=== PATIENT | male | born 1945 | race Caucasian/White ===

== ENCOUNTER → 2017-12-16 | Outpatient (CLI) | payer MEDICARE ==
--- NOTE | 2017-12-16 15:13 | US ---
EXAMINATION TYPE: US carotid duplex BILAT DATE OF EXAM: 12/16/2017 COMPARISON: NONE CLINICAL HISTORY: F03.90 Unspecified Dementia W/O Behavioral Distur. Dementia EXAM MEASUREMENTS: RIGHT: Peak Systolic Velocity (PSV) cm/sec ----- Right CCA: 76.7 ----- Right ICA: 64.3 ----- Right ECA: 84.4 ICA/CCA ratio: 0.8 RIGHT: End Diastole cm/sec ----- Right CCA: 16.1 ----- Right ICA: 18.0 ----- Right ECA: 7.3 LEFT: Peak Systolic Velocity (PSV) cm/sec ----- Left CCA: 83.8 ----- Left ICA: 66.0 ----- Left ECA: 76.5 ICA/CCA ratio: 0.8 LEFT: End Diastole cm/sec ----- Left CCA: 15.4 ----- Left ICA: 18.0 ----- Left ECA: 5.8 VERTEBRALS (direction of flow): Right Vertebral: Antegrade Left Vertebral: Antegrade Rhythm: Normal No significant stenosis seen IMPRESSION: No evidence for hemodynamically significant stenosis. Criteria for Assigning % of Stenosis / Diameter reduction (Estimation based on the indirect measurements of the internal carotid artery velocities (ICA PSV). 1. Normal (no stenosis)=ICA PSV < 125 cm/s: ratio < 2.0: ICA EDV<40 cm/s. 2. Less than 50% stenosis=ICA PSV < 125 cm/s: ratio < 2.0: ICA EDV<40 cm/s. 3. 50 to 69% stenosis=ICA PSV of 125 to 230 cm/s: ration 2.0 ? 4.0: ICA EDV 40-100 cm/s. 4. Greater than 70% stenosis to near occlusion= ICA PSV > 230 cm/s: ratio > 4.0: ICA EDV > 100 cm/s. 5. Near occlusion= ICA PSV velocities may be low or undetectable: variable ratio and ICA EDV. 6. Total occlusion=unable to detect flow.
== END | disposition home or self-care (01) ==
LOC: RADUSWWP 14:39
PROVIDERS: ATTEND Family Medicine
DX: F03.90 Unspecified dementia, unspecified severity, without behavioral disturbance, psychotic disturbance, mood disturbance, and anxiety (principal)
CPT/HCPCS: 93880

== ENCOUNTER → 2017-12-21 | Outpatient (CLI) | payer MEDICARE ==
--- NOTE | 2017-12-22 00:40 | MR ---
EXAMINATION TYPE: MR brain wo con DATE OF EXAM: 12/21/2017 COMPARISON: NONE HISTORY: Unspecified dementia (F03.90) per order. Memory loss with bilateral hearing loss per patient . TECHNIQUE: Multiplanar, multisequence imaging of the brain and brainstem is performed without IV cont rast. FINDINGS: Diffusion weighted images demonstrate no evidence of a recent infarct or other diffusion abnormality. There is no worrisome extra-axial fluid collection. There is diffuse ventricular and sulcal prominenc e consistent with diffuse cerebral atrophy. There are some scattered foci of T2 hyperintensity seen t hroughout the white matter bilaterally. Approximately 10 scattered small lesions are present. Lesions are nonspecific in appearance and distribution but most likely on basis of product of small vessel i schemic change in patient of this age. Midline structures demonstrate normal morphology. The craniocervical junction appears within normal limits. Normal vascular flow voids are present. Moderate to severe mucosal thickening involving ethmo id sinuses bilaterally is present. Mild to moderate mucosal thickening bilateral maxillary sinuses is seen. There is completely opacified left sphenoid sinus. There is mild mucosal thickening involving bilateral frontal sinuses. Visualized globes are intact bilaterally. IMPRESSION: 1. Moderate to borderline severe diffuse cerebral atrophy and mild chronic small vessel ischemic avila ge. 2. Chronic paranasal sinus disease as detailed above, acute component left maxillary sinus level jose ot be excluded. Correlate clinically.
== END | disposition home or self-care (01) ==
LOC: RADMRIMAIN 12:42
PROVIDERS: ATTEND Family Medicine
DX: G31.1 Senile degeneration of brain, not elsewhere classified (principal); I67.82 Cerebral ischemia
CPT/HCPCS: 70551

== ENCOUNTER → 2019-03-10 | Outpatient (CLI) | payer MEDICARE ==
--- NOTE | 2019-03-10 10:54 | XR ---
EXAMINATION TYPE: XR chest 2V DATE OF EXAM: 03/10/2019 COMPARISON: None INDICATION: Cough abnormal weight loss TECHNIQUE: Frontal and lateral views of the chest are obtained. FINDINGS: The heart size is normal. The pulmonary vasculature is normal. The lungs are clear. IMPRESSION: 1. No acute pulmonary process.
== END | disposition home or self-care (01) ==
LOC: RADXRYALE 10:00
PROVIDERS: ATTEND Physician Assistant Medical
DX: R05 Cough (principal); R63.4 Abnormal weight loss
CPT/HCPCS: 71046

== ENCOUNTER → 2019-03-27 | Day surgery (SDC) | payer MEDICARE ==
[2019-03-26 09:28] VITALS: BMI 17.9
[~2019-03-27] MED LIST: LACTATED RINGERS 1,000 ML IV SCH; LIDOCAINE 1% 20 ML VIAL (10MG/ML) FOR IV START INTRADERMA ONE; PROPOFOL 10 MG/ML 20 ML VIAL IV ONE
[2019-03-27 09:43] VITALS: TEMP 97.4
[2019-03-27 09:52] LABS: Glucose,Whole Blood 98 mg/dL (75-99)
--- NOTE | 2019-03-27 11:01 | P.PCN ---
Date of Procedure: 03/27/19 Procedure(s) Performed: Brief history: Patient is a pleasant 73-year-old white male, scheduled for an elective upper endoscopy as well as colonoscopy as a part of evaluation of abdominal pain, change in bowel habits and progressive weight loss of several months duration. Procedure performed: Esophagogastroduodenoscopy with biopsy Colonoscopy Preoperative diagnosis: Abdominal pain, change in bowel habits and progressive weight loss Anesthesia: MAC Procedure: After informed consent was obtained from the patient was brought into the endoscopy unit and IV sedation was administered by anesthesia under continuous monitoring. Initially upper endoscopy was done. The Olympus GF 160 video endoscope was inserted inserted into the mouth and esophagus intubated without any difficulty and was gradually advanced into the stomach and duodenum and carefully examined. Answers were done from the duodenum to rule out celiac disease. The bulb and second part of the duodenum appeared normal. The scope was then withdrawn into the stomach adequately insufflated with air and upon careful examination the antrum and body had mild gastritis and biopsies were done from this area. Under direction there were gastric fundal varices identified. The scope was then withdrawn into the esophagus. The GE junction was located at 40 cm to the incisors. It appeared regular with no erythema erosions or ulcerations. No esophageal varices seen. Rest of the esophagus appeared normal. Patient tolerated the procedure well. At this time the patient continued to remain sedation. Initial digital rectal examination was normal. Olympus CF 160 video colonoscope was then inserted into the rectum and gradually advanced to the cecum without any difficulty. Careful examination was performed as the scope was gradually being withdrawn. The prep was excellent. The cecum, ascending colon, transverse colon, descending colon, sigmoid colon and rectum appeared normal. Retroflexion was performed in the rectum and grade 2 internal hemorrhoids were noted. Patient tolerated the procedure well. Impression: 1. Upper endoscopy revealed gastric fundal varices but no evidence of esophageal varices. 2. Colonoscopy revealed grade 2 internal hemorrhoids but no evidence of colorectal neoplasia Recommendations: Findings of this examination were discussed with the patient as well as his family. He was advised to follow with the biopsy results. In view of the findings of isolated gastric varices without any evidence of esophageal varices, possibility of pancreatic pathology needs to be considered. CT of the abdomen and pelvis recommended for further workup.
[2019-03-27 11:07] VITALS: RESP 17
[2019-03-27 11:27] VITALS: BP 125/56; PULSE 62
== END | disposition home or self-care (01) ==
LOC: ORWHC2ENDO 08:36
PROVIDERS: ATTEND Internal Medicine Gastroenterology
DX: K29.50 Unspecified chronic gastritis without bleeding (principal); I86.4 Gastric varices; K64.1 Second degree hemorrhoids; R19.4 Change in bowel habit; I10 Essential (primary) hypertension; E78.5 Hyperlipidemia, unspecified; E11.9 Type 2 diabetes mellitus without complications; K21.9 Gastro-esophageal reflux disease without esophagitis; Z79.899 Other long term (current) drug therapy
CPT/HCPCS: 88305; 45378; 43239; J2704

== ENCOUNTER → 2019-04-08 | Outpatient (CLI) | payer MEDICARE ==
[2019-04-08 09:33] LABS: Blood Urea Nitrogen 21 mg/dL (9-20)
--- NOTE | 2019-04-08 11:10 | CT ---
EXAMINATION TYPE: CT abdomen pelvis w con DATE OF EXAM: 04/08/2019 COMPARISON: None HISTORY: Abnormal weight loss over last 3 months. Change in bowel habits per order. CT DLP: 715 mGycm, Automated Exposure Control for Dose Reduction was Utilized. CONTRAST: CT scan of the abdomen and pelvis is performed with oral and with IV Contrast, patient injected with 100 mL of Isovue 300. FINDINGS: LUNG BASES: No significant abnormality is appreciated. LIVER/GB: Dependent density in gallbladder is felt to reflect small stones and/or gallbladder sludge. Liver is normal in size. PANCREAS: Pancreas shows moderate generalized atrophy with scattered calcifications presumed product of chronic pancreatitis. SPLEEN: Spleen is somewhat bulky though measures under 13 cm in size on long axis. ADRENALS: Normal left adrenal gland not visualized with numerous surgical clips at this level noted. KIDNEYS: Symmetric cortical medullary uptake and excretion from both kidneys without hydronephrosis i s present bilaterally. There is simple appearing 8 mm cyst medially upper pole right kidney axial ser ies 7 image 20. BOWEL: Oral contrast reaches proximal to mid ileal level in the right abdomen. There is no suspicious small or large bowel dilatation. Stomach is poorly distended and thus suboptimally evaluated. Distal small bowel feces sign is seen consistent with delayed passage of ingested material 2 colonic level. Some diverticula in the sigmoid colon are present. There is mild wall thickening of proximal sigmoid colon loop coronal image 28, a mild colitis at this level cannot be excluded. PROSTATE/SEMINAL VESICLES: Heterogeneous enlarged prostate gland consistent with BPH. LYMPH NODES: No greater than 1cm abdominal or pelvic lymph nodes are appreciated. OSSEOUS STRUCTURES: Mild to moderate multilevel spurring in the thoracolumbar spine is present. There is moderate to severe disc space narrowing L5-S1 level. There is mild to moderate axial joint space loss in both hips. OTHER: There are prominent vessels in the left upper quadrant surrounding stomach and gastrosplenic s pace Main portal vein is patent with possible small web seen best coronal image 30, and appears dilat ed measuring up to 2.0 cm. Just inferior to this there is felt to be more confluent heterogeneous enl arged portal vein. There is poor visualization of the SMV. No recanalized umbilical vein is present. Numerous prominent vessels extend inferior to the pancreatic head. There is asymmetric prominence vessels suspected varicocele in the left scrotal sac coronal image 18 for reference. There is asymmetric small left scrotal fluid collection or hydrocele IMPRESSION: 1. Possible mild colitis involving proximal sigmoid colon, correlate clinically. No bowel obstruction . Small bowel feces sign noted. Suspect delayed passage of ingested material 2 colonic level. 2. Unusual prominent vessels epigastric region involving left upper quadrant and the upper to mid mariluz tral abdomen. No convincing evidence of cirrhosis and underlying portal venous hypertension. Spleen i s bulky Suspect some underlying venous congestion. Evidence of prior surgery at level of left adrenal gland. Suspect vascular malformation possibly congenital or related to prior surgery. Correlate clinically a nd correlation with old outside CT advised to see if there has been interval change. 3. No suspicious mass or adenopathy to suggest neoplasm.
== END | disposition home or self-care (01) ==
LOC: RADCTMAIN 08:52
PROVIDERS: ATTEND Family Medicine
DX: R19.7 Diarrhea, unspecified (principal); R63.4 Abnormal weight loss; R13.10 Dysphagia, unspecified; R68.81 Early satiety; I86.4 Gastric varices
CPT/HCPCS: 82565; 84520; 74177; 36415; Q9967 ×2

== ENCOUNTER 2019-04-22 13:03 | Inpatient (IN) | payer MEDICARE ==
[2019-04-22 15:23] LABS: Basophils % (A) 0 %; Eosinophils # (A) 0.1 k/uL (0-0.7); Eosinophils % (A) 1 %; HGB 13.6 gm/dL (13.0-17.5); Lymphocytes # (A) 1.2 k/uL (1.0-4.8); Lymphocytes % (A) 17 %; MCH 30.9 pg (25.0-35.0); MCHC 33.9 g/dL (31.0-37.0); MCV 91.3 fL (80.0-100.0); Mean Platelet Volume 8.2; Monocytes # (A) 0.3 k/uL (0-1.0); Monocytes % (A) 4 %; Neutrophils # (A) 5.3 k/uL (1.3-7.7); Neutrophils % (A) 76 %; Platelet Count 121 k/uL (150-450); Poikilocytosis Slight; RBC 4.38 m/uL (4.30-5.90); RDW 15.6 % (11.5-15.5); WBC 7.1 k/uL (3.8-10.6)
[2019-04-22] MEDS ORDERED: SODIUM CHLORIDE 0.9% 1,000 ML IV STA (15:25)
--- NOTE | 2019-04-22 15:26 | ED ---
General Adult HPI - General Chief complaint: Weakness Stated complaint: Weakness Time Seen by Provider: 04/22/19 14:52 Source: patient Mode of arrival: wheelchair Limitations: altered mental status - History of Present Illness Initial comments: 73-year-old male with a past medical history of diabetes, GERD, hyperlipidemia, hypertension, memory impairment presents to the emergency department for a chief complaint of weakness. Family members state this has been going on for quite some time however worsened in the past 3 days. States he has had a 40 pound weight loss in the last expense. States he has had diarrhea for the past month as well. Patient has had difficulty swallowing and has had an EGD performed which did show a varicosity. Patient has an appointment with Dr. Brewster in April.Patient has no other complaints at this time including shortness of breath, chest pain, abdominal pain, nausea or vomiting, headache, or visual changes. - Related Data Home Medications Medication Instructions Recorded Confirmed Atenolol [Tenormin] 12.5 mg PO DAILY 03/26/19 04/22/19 Atorvastatin [Lipitor] 40 mg PO HS 03/26/19 04/22/19 Folic Acid 0.4 mg PO DAILY 03/26/19 04/22/19 Magnesium Oxide [Mag-Ox] 250 mg PO BID 03/26/19 04/22/19 Megestrol [Megace] 40 mg PO DAILY 03/26/19 04/22/19 Memantine [Namenda] 10 mg PO HS 03/26/19 04/22/19 Niacin [Niaspan] 500 mg PO DAILY 03/26/19 04/22/19 [place]-3 Fatty Acids/Fish Oil [Fish 1 cap PO DAILY 03/26/19 04/22/19 Oil 1,000 mg Softgel] Allergies Allergy/AdvReac Type Severity Reaction Status Date / Time No Known Allergies Allergy Verified 04/22/19 15:21 Review of Systems ROS Statement: Those systems with pertinent positive or pertinent negative responses have been documented in the HPI. ROS Other: All systems not noted in ROS Statement are negative. Past Medical History Past Medical History: Dementia, Diabetes Mellitus, GERD/Reflux, Hearing Disorder / Deafness, Hyperlipidemia, Hypertension, Memory Impairment, Osteoarthritis (OA) Additional Past Medical History / Comment(s): GLAUCOMA History of Any Multi-Drug Resistant Organisms: None Reported Past Surgical History: Hernia Repair Additional Past Surgical History / Comment(s): SURGERY FOR GLAUCOMA- BILATERAL EYES , BILATERAL INGUINAL HERNIA SURGERY, KIDNEY SURGERY-CYST REMOVED Past Anesthesia/Blood Transfusion Reactions: No Reported Reaction Past Psychological History: No Psychological Hx Reported Smoking Status: Former smoker Past Alcohol Use History: None Reported Past Drug Use History: None Reported - Past Family History Mother Family Medical History: No Reported History General Exam Limitations: altered mental status Course Vital Signs 04/22/19 04/22/19 13:28 17:21 Temperature 97.3 F L Pulse Rate 51 L 50 L Respiratory 16 16 Rate Blood Pressure 140/77 178/88 O2 Sat by Pulse 95 100 Oximetry - Reevaluation(s) Reevaluation #1: 04/22/19 15:25 heart rate down to 42 EKG Findings - EKG Comments: EKG Findings:: Sinus bradycardia, ventricular rate 48, SC interval 136, QTC 357 Medical Decision Making - Medical Decision Making 73-year-old male presents to the emergency department for a chief complaint of weakness 3 days. Family states patient has had progressive weakness over the past several months but this worsened in the past 3 days if patient has become somewhat confused. States that he has had a 40 pound weight loss the past [address] Brewster in the past for EGD as he has had difficulty swallowing and anorexia which showed a varicosity. On exam patient is alert but does seem somewhat confused. CBC is unremarkable. However CMP does show a calcium of 18. Calcium was 12.8 about 6 weeks ago. Patient has also been bradycardic down to the 40s but did improve somewhat after receiving fluids. Bradycardia could be secondary to hypercalcemia. Urine is negative. Albumin 5.2. Multiple labs added on admission including alkaline phosphatase, ionized calcium, phosphorus, PTH, TSH. Patient will be kept on 200 mL per hour of fluids for hypercalcemia. Patient did have to be given 0.5 g of Ativan IV because he was very agitated trying to climb out of bed. - Lab Data Result diagrams: 04/22/19 15:04/22/19 15:51 Lab Results 04/22/19 04/22/19 04/22/19 Range/Units 15:01 15: 15:01 WBC 7.1 (3.8-10.6) k/uL RBC 4.38 (4.30-5.90) m/uL Hgb 13.6 (13.0-17.5) gm/dL Hct 40.0 (39.0-53.0) % MCV 91.3 (80.0-100.0) fL MCH 30.9 (25.0-35.0) pg MCHC 33.9 (31.0-37.0) g/dL RDW 15.6 H (11.5-15.5) % Plt Count 121 L (150-450) k/uL Neutrophils % 76 % Lymphocytes % 17 % Monocytes % 4 % Eosinophils % 1 % Basophils % 0 % Neutrophils # 5.3 (1.3-7.7) k/uL Lymphocytes # 1.2 (1.0-4.8) k/uL Monocytes # 0.3 (0-1.0) k/uL Eosinophils # 0.1 (0-0.7) k/uL Basophils # 0.0 (0-0.2) k/uL Poikilocytosis Slight PT 11.7 (9.0-12.0) sec INR 1.1 (<1.2) APTT 18.5 L (22.0-30.0) sec Sodium (137-145) mmol/L Potassium (3.5-5.1) mmol/L Chloride (98-107) mmol/L Carbon Dioxide (22-30) mmol/L Anion Gap mmol/L BUN (9-20) mg/dL Creatinine (0.66-1.25) mg/dL Est GFR (CKD-EPI)AfAm (>60 ml/min/1.73 sqM) Est GFR (CKD-EPI)NonAf (>60 ml/min/1.73 sqM) Glucose (74-99) mg/dL Plasma Lactic Acid Chuy (0.7-2.0) mmol/L Calcium (8.4-10.2) mg/dL Magnesium (1.6-2.3) mg/dL Total Bilirubin (0.2-1.3) mg/dL AST (17-59) U/L ALT (21-72) U/L Alkaline Phosphatase (38-126) U/L Troponin I <0.012 (0.000-0.034) ng/mL Total Protein (6.3-8.2) g/dL Albumin (3.5-5.0) g/dL Urine Color Urine Appearance (Clear) Urine pH (5.0-8.0) Ur Specific Elmo (1.001-1.035) Urine Protein (Negative) Urine Glucose (UA) (Negative) Urine Ketones (Negative) Urine Blood (Negative) Urine Nitrite (Negative) Urine Bilirubin (Negative) Urine Urobilinogen (<2.0) mg/dL Ur Leukocyte Esterase (Negative) Urine WBC (0-5) /hpf Ur Squamous Epith Cells (0-4) /hpf Urine Bacteria (None) /hpf Hyaline Casts (0-2) /lpf Urine Mucus (None) /hpf 04/22/19 04/22/19 04/22/19 Range/Units 15:51 15:51 15:51 WBC (3.8-10.6) k/uL RBC (4.30-5.90) m/uL Hgb (13.0-17.5) gm/dL Hct (39.0-53.0) % MCV (80.0-100.0) fL MCH (25.0-35.0) pg MCHC (31.0-37.0) g/dL RDW (11.5-15.5) % Plt Count (150-450) k/uL Neutrophils % % Lymphocytes % % Monocytes % % Eosinophils % % Basophils % % Neutrophils # (1.3-7.7) k/uL Lymphocytes # (1.0-4.8) k/uL Monocytes # (0-1.0) k/uL Eosinophils # (0-0.7) k/uL Basophils # (0-0.2) k/uL Poikilocytosis PT (9.0-12.0) sec INR (<1.2) APTT (22.0-30.0) sec Sodium 141 (137-145) mmol/L Potassium 4.6 (3.5-5.1) mmol/L Chloride 107 (98-107) mmol/L Carbon Dioxide 22 (22-30) mmol/L Anion Gap 12 mmol/L BUN 37 H (9-20) mg/dL Creatinine 1.28 H (0.66-1.25) mg/dL Est GFR (CKD-EPI)AfAm 64 (>60 ml/min/1.73 sqM) Est GFR (CKD-EPI)NonAf 56 (>60 ml/min/1.73 sqM) Glucose 103 H (74-99) mg/dL Plasma Lactic Acid Chuy 2.0 (0.7-2.0) mmol/L Calcium 18.7 H* (8.4-10.2) mg/dL Magnesium 1.4 L (1.6-2.3) mg/dL Total Bilirubin 1.6 H (0.2-1.3) mg/dL AST 27 (17-59) U/L ALT 14 L (21-72) U/L Alkaline Phosphatase 61 (38-126) U/L Troponin I (0.000-0.034) ng/mL Total Protein 8.0 (6.3-8.2) g/dL Albumin 5.2 H (3.5-5.0) g/dL Urine Color Yellow Urine Appearance Clear (Clear) Urine pH 5.0 (5.0-8.0) Ur Specific Elmo 1.022 (1.001-1.035) Urine Protein 1+ H (Negative) Urine Glucose (UA) Negative (Negative) Urine Ketones Negative (Negative) Urine Blood Negative (Negative) Urine Nitrite Negative (Negative) Urine Bilirubin Negative (Negative) Urine Urobilinogen <2.0 (<2.0) mg/dL Ur Leukocyte Esterase Negative (Negative) Urine WBC 1 (0-5) /hpf Ur Squamous Epith Cells <1 (0-4) /hpf Urine Bacteria Rare H (None) /hpf Hyaline Casts 1 (0-2) /lpf Urine Mucus Rare H (None) /hpf Disposition Clinical Impression: Hypercalcemia, Weakness, Hypomagnesemia, Anorexia Disposition: ADMITTED IP TO THIS HOSP Condition: Fair Is patient prescribed a controlled substance at d/c from ED?: No Referrals: Yordy Vaz DO [Primary Care Provider] - 1-2 days Time of Disposition: 17:40
[2019-04-22 15:30] LABS: INR 1.1 (<1.2); Prothrombin Time 11.7 sec (9.0-12.0)
[2019-04-22 15:39] LABS: Partial Thromboplastin Time 18.5 sec (22.0-30.0)
[2019-04-22 16:14] LABS: Appearance,Urine Clear (Clear); Bacteria,Urine Rare /hpf; Bilirubin,Urine Negative (Negative); Blood,Urine Negative (Negative); Color,Urine Yellow; Glucose,Urine (UA) Negative (Negative); Hyaline Casts,Urine 1 /lpf (0-2); Ketones,Urine Negative (Negative); Leukocyte Esterase,Urine Negative (Negative); Mucus,Urine Rare /hpf; Nitrite,Urine Negative (Negative); Protein,Urine 1+ (Negative); Specific Gravity,Urine 1.022 (1.001-1.035); Squamous Epithelial Cell,Urine <1 /hpf (0-4); Urobilinogen,Urine <2.0 mg/dL (<2.0); WBC,Urine 1 /hpf (0-5)
[2019-04-22] MEDS ORDERED: LORazepam 2 MG/ML INJ IV STA ×2 (16:14→18:04)
[2019-04-22 16:30] LABS: Albumin 5.2 g/dL (3.5-5.0); Magnesium 1.4 mg/dL (1.6-2.3); Potassium 4.6 mmol/L (3.5-5.1); Total Bilirubin 1.6 mg/dL (0.2-1.3)
[2019-04-22 16:45] LABS: Calcium 18.7 mg/dL (8.4-10.2)
[2019-04-22] MEDS ORDERED: NALOXONE 0.4 MG/ML 1 ML VIAL IV PRN (17:33)
--- NOTE | 2019-04-22 17:56 | P.HPIM ---
History of Present Illness Unable to get much of the history from the patient family and son were present at the bedside history was obtained from them. [id number] male with known history of dementia appears to have at least moderate dementia appea rs to have dementia of Alzheimer's type on Aricept and Namenda came in as as increasing confusion decreased functionality excessive sleepiness found to be hypercalcemic. Patient has been losing weight last about 40 pounds in last 3-5 months. Unsure whether this is from his dementia. Patient doesn't eat much anyway. Patient's serum Calcium is 16 which is contributing to his symptoms. Patient is also bradycardic but is on atenolol and maybe low serum calcium is contributing to that as well. Unsure whether his weight loss is because of the cancer that was not diagnosed yet or dementia itself. Patient did have a recent upper GI endoscopy and colonoscopy, family's any weight up for any PSA testing Prostate exam. Patient doesn't have any fever chills doesn't have any sepsis at this time. Intact PTH, 125 hydroxy vitamin D levels are pending. Patient has acute renal failure with creatinine of 1.28 from hypercalcemia low magnesium levels as well. Mildly elevated total bilirubin of 1.6. Review of Systems Unable to obtain due to his clinical condition. Past Medical History Past Medical History: Dementia, Diabetes Mellitus, GERD/Reflux, Hearing Disorder / Deafness, Hyperlipidemia, Hypertension, Memory Impairment, Osteoarthritis (OA) Additional Past Medical History / Comment(s): GLAUCOMA History of Any Multi-Drug Resistant Organisms: None Reported Past Surgical History: Hernia Repair Additional Past Surgical History / Comment(s): SURGERY FOR GLAUCOMA- BILATERAL EYES , BILATERAL INGUINAL HERNIA SURGERY, KIDNEY SURGERY-CYST REMOVED Past Anesthesia/Blood Transfusion Reactions: No Reported Reaction Past Psychological History: No Psychological Hx Reported Smoking Status: Former smoker Past Alcohol Use History: None Reported Past Drug Use History: None Reported - Past Family History Mother Family Medical History: No Reported History Medications and Allergies Home Medications Medication Instructions Recorded Confirmed Type Atenolol [Tenormin] 12.5 mg PO DAILY 03/26/19 04/22/19 History Atorvastatin [Lipitor] 40 mg PO HS 03/26/19 04/22/19 History Folic Acid 0.4 mg PO DAILY 03/26/19 04/22/19 History Magnesium Oxide [Mag-Ox] 250 mg PO BID 03/26/19 04/22/19 History Megestrol [Megace] 40 mg PO DAILY 03/26/19 04/22/19 History Memantine [Namenda] 10 mg PO HS 03/26/19 04/22/19 History Niacin [Niaspan] 500 mg PO DAILY 03/26/19 04/22/19 History [place]-3 Fatty Acids/Fish Oil [Fish 1 cap PO DAILY 03/26/19 04/22/19 History Oil 1,000 mg Softgel] Allergies Allergy/AdvReac Type Severity Reaction Status Date / Time No Known Allergies Allergy Verified 04/22/19 15:21 Physical Exam Vitals: Vital Signs Temp Pulse Resp BP Pulse Ox 04/22/19 17:21 50 L 16 178/88 100 04/22/19 13:28 97.3 F L 51 L 16 140/77 95 Intake and Output 04/22/19 04/22/19 04/22/19 06:59 14:59 22:59 Other: Weight 52.617 kg PHYSICAL EXAMINATION: GENERAL: The patient is excessively sleepy arousable but unable to provide any history HEENT: Pupils are round and equally reacting to light. EOMI. No scleral icterus. No conjunctival pallor. Normocephalic, atraumatic. No pharyngeal erythema. No thyromegaly. CARDIOVASCULAR: S1 and S2 present. No murmurs, rubs, or gallops. PULMONARY: Chest is clear to auscultation, no wheezing or crackles. ABDOMEN: Soft, nontender, nondistended, normoactive bowel sounds. No palpable organomegaly. MUSCULOSKELETAL: No joint swelling or deformity. EXTREMITIES: No cyanosis, clubbing, or pedal edema. NEUROLOGICAL: Unable to assess SKIN: No rashes. Results CBC & Chem 7: 04/22/19 15:04/22/19 15:51 Labs: Abnormal Lab Results - Last 24 Hours (Table) 04/22/19 04/22/19 04/22/19 Range/Units 15: 15: 15:51 RDW 15.6 H (11.5-15.5) % Plt Count 121 L (150-450) k/uL APTT 18.5 L (22.0-30.0) sec BUN 37 H (9-20) mg/dL Creatinine 1.28 H (0.66-1.25) mg/dL Glucose 103 H (74-99) mg/dL Calcium 18.7 H* (8.4-10.2) mg/dL Magnesium 1.4 L (1.6-2.3) mg/dL Total Bilirubin 1.6 H (0.2-1.3) mg/dL ALT 14 L (21-72) U/L Albumin 5.2 H (3.5-5.0) g/dL Urine Protein (Negative) Urine Bacteria (None) /hpf Urine Mucus (None) /hpf 04/22/19 Range/Units 15:51 RDW (11.5-15.5) % Plt Count (150-450) k/uL APTT (22.0-30.0) sec BUN (9-20) mg/dL Creatinine (0.66-1.25) mg/dL Glucose (74-99) mg/dL Calcium (8.4-10.2) mg/dL Magnesium (1.6-2.3) mg/dL Total Bilirubin (0.2-1.3) mg/dL ALT (21-72) U/L Albumin (3.5-5.0) g/dL Urine Protein 1+ H (Negative) Urine Bacteria Rare H (None) /hpf Urine Mucus Rare H (None) /hpf Assessment and Plan Plan: -Hypercalcemia with weight loss: Patient is definitely dehydrated will be started on IV fluids received 2 L of fluids and patient was given 200 mL IV fluids for hypercalcemia and hypercalcemia is contributing to his severe encephalopathy. Obtain PSA levels, 125 hydroxyvitamin D levels along with intact PTH further workup for cancer started in with a chest CAT scan will be done depending on morose morning calcium. Patient will be given calcitonin along with zolindronic acid, nephrology will be consulted. -Acute renal failure secondary to hypercalcemia IV fluids as mentioned above repeat the basic metabolic profile tomorrow -Metabolic e encephalopathy secondary to hypercalcemia -Weight loss can be secondary to an cancer undiagnosed or maybe just because of his dementia and not eating well. -Bradycardia: I do not have an EKG available EKG will be ordered and bradycardia secondary to beta [place] along with hypercalcemia. -Hypomagnesemia magnesium will be supplemented -Dementia appears to be as there was dementia. -Gastroesophageal reflux disease -Hyperlipidemia -Hypertension Patient will need pharmacologic GI and DVT prophylaxis
[2019-04-22] MEDS: SODIUM CHLORIDE 0.9% 1,000 ML IV SCH (18:20)
[2019-04-22] MEDS: MAGNESIUM SULFATE-D5W PMX 1 GM in DEXTROSE/WATER 1 100ML.BAG IVPB SCH ×2 (18:21→22:56)
[2019-04-22] MEDS ORDERED: ZOLEDRONIC ACID 4 MG in SODIUM CHLORIDE 0.9% 100 ML IV ONE (18:30)
[2019-04-22 21:27] LABS: Phosphorus 2.9 mg/dL (2.5-4.5)
[2019-04-22 21:30] LABS: Ionized Calcium 9.4 mg/dL (4.5-5.3)
[2019-04-22] MEDS: FAMOTIDINE 20 MG TAB PO SCH (22:35)
[2019-04-22] MEDS: MAGNESIUM OXIDE 400 MG TAB PO SCH (22:35)
[2019-04-22] MEDS: ATORVASTATIN 40 MG TAB PO SCH (22:35)
[2019-04-22] MEDS: HEPARIN SODIUM,PORCINE 5,000 UNIT/ML 1 ML VIAL SQ SCH (22:55)
[2019-04-22] MEDS: CALCITONIN INJ 200 UNIT/ML (MDV) VIAL SQ SCH (22:56)
[2019-04-23] MEDS ORDERED: LORazepam 2 MG/ML INJ IV STA (01:16)
[2019-04-23] MEDS: SODIUM CHLORIDE 0.9% 1,000 ML IV SCH ×5 (01:27→18:05)
[2019-04-23 03:39] LABS: Glucose,Whole Blood 92 mg/dL (75-99)
[2019-04-23] MEDS ORDERED: ONDANSETRON 4 MG/2 ML VIAL IVP PRN (05:15)
--- NOTE | 2019-04-23 09:15 | P.NPCON ---
History of Present Illness - Reason for Consult acute renal failure - History of Present Illness Reason for consultation: Acute kidney injury and hypercalcemia History of present illness: Patient is a 73-year-old male seen in consultation for acute kidney injury and hypercalcemia. Patient's pacing creatinine is near 1 and was elevated at 1.28 on admission. Patient's calcium level was severely elevated at 18.7. His ionized calcium was 9.4. Patient presented to the hospital with generalized weakness and diarrhea going on for the last few weeks. According to the family patient's been progressively getting weaker over the last few months. The last 3 days the patient [place] and get out of the bed and was not responding much and therefore they brought him to the hospital. His oral intake has been quite poor. He's been complaining of food getting stuck in his throat. According to the family the patient does not take Tums nor does he eat excessive amounts of dairy. Family is unsure if he takes any vitamin D or not. I don't see any diuretics and his home medications. No history of malignancy. No fever or chills. Patient is currently maintained on normal saline at 200 mL an hour. He also received a dose as an electronic acid in the ER. He is also maintained on subcu calcitonin at this time. Vital signs are stable. General: The patient appears lethargic. Doesn't respond to verbal commands. HEENT: Head exam is unremarkable. Neck is without jugular venous distension. LUNGS: Lungs are clear to auscultation and percussion. Breath sounds decreased. HEART: Rate and Rhythm are regular. First and second heart sounds normal. No murmurs, rubs or gallops. ABDOMEN: Abdominal exam reveals normal bowel sounds. Non-tender and non- distended. No evidence of peritonitis. EXTREMITITES: No clubbing, cyanosis, or edema. Past Medical History Past Medical History: Dementia, Diabetes Mellitus, GERD/Reflux, Hearing Disorder / Deafness, Hyperlipidemia, Hypertension, Memory Impairment, Osteoarthritis (OA) Additional Past Medical History / Comment(s): GLAUCOMA, Nov- per took pt off metformin because lab values were good and such drastic weight loss, incontinence of urine/stool no control, difficulty swallowing- has been choking on pills, not eating/drinking at home History of Any Multi-Drug Resistant Organisms: None Reported Past Surgical History: Hernia Repair Additional Past Surgical History / Comment(s): SURGERY FOR GLAUCOMA- BILATERAL EYES , BILATERAL INGUINAL HERNIA SURGERY, KIDNEY SURGERY-CYST REMOVED , adrenal gland removed Past Anesthesia/Blood Transfusion Reactions: No Reported Reaction Past Psychological History: Anxiety, Depression Smoking Status: Former smoker Past Alcohol Use History: None Reported Additional Past Alcohol Use History / Comment(s): STARTED SMOKING AT AGE 18 QUIT AGE 19 SMOKED 1/2PPD OR LESS Past Drug Use History: None Reported - Past Family History Mother Family Medical History: No Reported History Medications and Allergies Home Medications Medication Instructions Recorded Confirmed Type Atenolol [Tenormin] 12.5 mg PO DAILY 03/26/19 04/22/19 History Atorvastatin [Lipitor] 40 mg PO HS 03/26/19 04/22/19 History Folic Acid 0.4 mg PO DAILY 03/26/19 04/22/19 History Magnesium Oxide [Mag-Ox] 250 mg PO BID 03/26/19 04/22/19 History Megestrol [Megace] 40 mg PO DAILY 03/26/19 04/22/19 History Memantine [Namenda] 10 mg PO HS 03/26/19 04/22/19 History Niacin [Niaspan] 500 mg PO DAILY 03/26/19 04/22/19 History [place]-3 Fatty Acids/Fish Oil [Fish 1 cap PO DAILY 03/26/19 04/22/19 History Oil 1,000 mg Softgel] Allergies Allergy/AdvReac Type Severity Reaction Status Date / Time No Known Allergies Allergy Verified 04/22/19 20:32 Physical Exam Vitals: Vital Signs Temp Pulse Pulse Pulse Resp BP BP 04/23/19 07:20 51 L 16 04/23/19 04:48 97.8 F 58 L 16 153/76 04/23/19 03:50 04/22/19 20:42 97.7 F 67 18 154/73 04/22/19 19:50 61 15 132/69 04/22/19 18:40 78 25 H 111/82 04/22/19 18:30 64 18 159/96 04/22/19 17:21 50 L 16 178/88 04/22/19 16:40 52 L 14 168/93 04/22/19 14:51 04/22/19 13:28 97.3 F L 51 L 16 140/77 Pulse Ox 04/23/19 07:20 04/23/19 04:48 97 04/23/19 03:50 100 04/22/19 20:42 94 L 04/22/19 19:50 04/22/19 18:40 04/22/19 18:30 04/22/19 17:21 100 04/22/19 16:40 100 04/22/19 14:51 98 04/22/19 13:28 95 Intake and Output 04/22/19 04/23/19 04/23/19 22:59 06:59 14:59 Intake Total 1999 Balance 1999 Intake: Intake, IV Titration 1999 Amount Magnesium Sulfate-D5w Pmx 200 1 gm In Dextrose/Water 1 100ml.bag @ 100 mls/hr IVPB Q1H [facility] Rx#: [id number] Sodium Chloride 0.9% 1, 1800 000 ml @ 200 mls/hr IV . Q5H [facility] Rx#:[id number] Other: Voiding Method Diaper Diaper # Voids 1 3 Results - Lab Results Most recent lab results Calcium 18.7 mg/dL (8.4-10.2) H* 04/22/19 15:51 Phosphorus 2.9 mg/dL (2.5-4.5) 04/22/19 21:03 Magnesium 1.4 mg/dL (1.6-2.3) L 04/22/19 15:51 04/22/19 15:01 04/22/19 15:51 Assessment and Plan Plan: Assessment: 1. Acute kidney injury secondary to ATN secondary to hypercalcemia. Baseline creatinine near 1. Creatinine 1.8 on admission. 2. Hypercalcemia, non-parathyroid mediated. PTH is appropriately suppressed. Can be from volume contraction. Need to rule out other causes such as sarcoid and multiple myeloma. 3. Hypomagnesemia from poor oral intake. Status post placement. 4. Diarrhea. Rule out C. diff. Plan: Maintain normal saline at 200 mL an hour. Check GERSON, vitamin D, 125 D3 levels. Check electrophoresis studies. Check PTH related peptide. Follow-up morning labs. Maintain calcitonin for now. Status post zoledronic acid on April 22. Thank you for the consultation. I will continue to follow the patient with you during his hospital stay.
[2019-04-23] MEDS: HEPARIN SODIUM,PORCINE 5,000 UNIT/ML 1 ML VIAL SQ SCH ×2 (09:37→20:33)
[2019-04-23] MEDS: CALCITONIN INJ 200 UNIT/ML (MDV) VIAL SQ SCH ×2 (09:37→20:32)
[2019-04-23 09:47] VITALS: BMI 17.6
[2019-04-23] MEDS: FAMOTIDINE 20 MG TAB PO SCH (10:12)
[2019-04-23] MEDS: MAGNESIUM OXIDE 400 MG TAB PO SCH ×2 (10:13→20:52)
[2019-04-23 11:22] LABS: Albumin 3.9 g/dL (3.5-5.0); Potassium 4.1 mmol/L (3.5-5.1); Total Bilirubin 1.4 mg/dL (0.2-1.3); Total Protein 6.5 g/dL (6.3-8.2)
[2019-04-23 11:28] LABS: Protein, Total 6.1 g/dL (6.2-8.2)
[2019-04-23 11:33] LABS: Magnesium 1.5 mg/dL (1.6-2.3)
[2019-04-23 11:39] LABS: Calcium 14.7 mg/dL (8.4-10.2)
[2019-04-23 13:35] LABS: Ionized Calcium 8.3 mg/dL (4.5-5.3)
--- NOTE | 2019-04-23 16:09 | P.PN ---
Subjective 73-year-old male with moderate to severe Alzheimer's dementia, significant weight loss and elevated calcium calcium of 16 serum calcium has come down patient was given calcitonin, zoledronic acid, creatinine did improve to 1.2 to patient is on IV fluids at 200 mL per hour patient's the 1-5 hydroxy vitamin D levels are within normal limits and the patient had normal response to PDH which is lowerDyspnea secondary to multifocal pneumonia PTH RP is being obtained from a nephrology evaluated the patient. Patient the still mild hypomagnesemia magnesium will be replaced. Patient had a recent CAT scan of the abdomen which did not show any malignancy patient and upper GI endoscopy which showed esophageal varices colonoscopy did not reveal any s ignificant abnormality pathologies from these upper GI and lower GI endoscopy did not reveal any malignancy. PSA testing is pending, serum protein electrophoresis is pending a total serum calcium has come down to 14.7 from 18.7 yesterday. Unable to get any kind of history from the patient patient the hypercalcemia and weight loss can be just due to Alzheimer's dementia and severe dehydration and poor Intake or there may be an occult Ligman see which we haven't found out yet All inpatient medications were reviewed and appropriate changes in these medications as dictated in the interval history and assessment and plan. Objective - Vital Signs Vital signs: Vital Signs Temp 98.1 F 04/23/19 11:25 Pulse 72 04/23/19 11:25 Resp 17 04/23/19 14:41 BP 176/88 04/23/19 11:25 Pulse Ox 91 L 04/23/19 11:25 Intake & Output 04/22/19 04/23/19 04/23/19 18:59 06:59 18:59 Intake Total 1999 1800 Balance 1999 1800 Weight 52.617 kg 52.617 kg Intake: Intake, IV Titration 1999 1800 Amount Magnesium Sulfate-D5w Pmx 200 1 gm In Dextrose/Water 1 100ml.bag @ 100 mls/hr IVPB Q1H [facility] Rx#: [id number] Sodium Chloride 0.9% 1, 1800 1800 000 ml @ 200 mls/hr IV . Q5H [facility] Rx#:[id number] Oral 0 Other: Voiding Method Diaper Diaper # Voids 3 3 - Exam PHYSICAL EXAMINATION: GENERAL: The patient is excessively sleepy arousable but unable to provide any history HEENT: Pupils are round and equally reacting to light. EOMI. No scleral icterus. No conjunctival pallor. Normocephalic, atraumatic. No pharyngeal erythema. No thyromegaly. CARDIOVASCULAR: S1 and S2 present. No murmurs, rubs, or gallops. PULMONARY: Chest is clear to auscultation, no wheezing or crackles. ABDOMEN: Soft, nontender, nondistended, normoactive bowel sounds. No palpable organomegaly. MUSCULOSKELETAL: No joint swelling or deformity. EXTREMITIES: No cyanosis, clubbing, or pedal edema. NEUROLOGICAL: Unable to assess SKIN: No rashes. - Labs CBC & Chem 7: 04/22/19 15:01 04/23/19 09:20 Labs: Abnormal Lab Results - Last 24 Hours (Table) 04/22/19 04/22/19 04/22/19 Range/Units 15:51 15:51 18:39 Chloride (98-107) mmol/L BUN 37 H (9-20) mg/dL Creatinine 1.28 H (0.66-1.25) mg/dL Glucose 103 H (74-99) mg/dL Calcium 18.7 H* (8.4-10.2) mg/dL Ionized Calcium Lexi (4.5-5.3) mg/dL Magnesium 1.4 L (1.6-2.3) mg/dL Total Bilirubin 1.6 H (0.2-1.3) mg/dL ALT 14 L (21-72) U/L Total Protein (PEP) 6.1 L (6.2-8.2) g/dL Albumin 5.2 H (3.5-5.0) g/dL PTH Intact (14.0-72.0) pg/mL Urine Protein 1+ H (Negative) Urine Bacteria Rare H (None) /hpf Urine Mucus Rare H (None) /hpf 04/22/19 04/22/19 04/23/19 Range/Units 18:39 21:03 09:20 Chloride 109 H (98-107) mmol/L BUN 27 H (9-20) mg/dL Creatinine (0.66-1.25) mg/dL Glucose (74-99) mg/dL Calcium 14.7 H* (8.4-10.2) mg/dL Ionized Calcium Lexi 9.4 H* 8.3 H* (4.5-5.3) mg/dL Magnesium 1.5 L (1.6-2.3) mg/dL Total Bilirubin 1.4 H (0.2-1.3) mg/dL ALT 20 L (21-72) U/L Total Protein (PEP) (6.2-8.2) g/dL Albumin (3.5-5.0) g/dL PTH Intact <2.0 L (14.0-72.0) pg/mL Urine Protein (Negative) Urine Bacteria (None) /hpf Urine Mucus (None) /hpf Assessment and Plan Plan: -Hypercalcemia with weight loss: Patient is definitely dehydrated will be started on IV fluids received 2 L of fluids and patient was given 200 mL. Further assessment and plan as mentioned above IV fluids for hypercalcemia and hypercalcemia is contributing to his severe encephalopathy. Patient was given calcitonin along with zolindronic acid, nephrology evaluated the patient -Acute renal failure secondary to hypercalcemia IV fluids as mentioned above rep eat the basic metabolic profile tomorrow -Metabolic e encephalopathy secondary to hypercalcemia -Weight loss can be secondary to an cancer undiagnosed or maybe just because of his dementia and not eating well. -Bradycardia: I do not have an EKG available EKG will be ordered and bradycardia secondary to beta [place] along with hypercalcemia. -Hypomagnesemia magnesium will be supplemented -Dementia appears to be as there was dementia. -Gastroesophageal reflux disease -Hyperlipidemia -Hypertension Patient will need pharmacologic GI and DVT prophylaxis
[2019-04-23] MEDS: MAGNESIUM SULFATE-D5W PMX 1 GM in DEXTROSE/WATER 1 100ML.BAG IVPB SCH ×2 (16:41→18:05)
[2019-04-23] MEDS: ATORVASTATIN 40 MG TAB PO SCH (20:52)
[2019-04-24] MEDS: SODIUM CHLORIDE 0.9% 1,000 ML IV SCH ×3 (02:55→21:46)
[2019-04-24 07:42] LABS: Angiotensin-1 Converting Enz. 24 U/L (8-52)
--- NOTE | 2019-04-24 09:14 | P.PN ---
Subjective Patient is seen in follow-up for hypercalcemia. Calcium level was 18.7 on admission and was down to 14.7 as of yesterday. Patient is currently resting in bed. He is quite lethargic. Renal function stable. Creatinine was 1.2 to as of yesterday. Vital signs are stable. General: The patient appeared well nourished and normally developed. Lethargic. HEENT: Head exam is unremarkable. Neck is without jugular venous distension. LUNGS: Lungs are clear to auscultation and percussion. Breath sounds decreased. HEART: Rate and Rhythm are regular. First and second heart sounds normal. No murmurs, rubs or gallops. ABDOMEN: Abdominal exam reveals normal bowel sounds. Non-tender and non- distended. No evidence of peritonitis. EXTREMITITES: No clubbing, cyanosis, or edema. Objective - Vital Signs Vital signs: Vital Signs Temp 97.4 F L 04/24/19 05:00 Pulse 64 04/24/19 05:00 Resp 16 04/24/19 05:00 BP 129/72 04/24/19 05:00 Pulse Ox 100 04/24/19 05:00 Intake & Output 04/23/19 04/24/19 04/24/19 18:59 06:59 18:59 Intake Total 1800 500 Balance 1800 500 Weight 52.617 kg Intake: Intake, IV Titration 1800 500 Amount Magnesium Sulfate-D5w Pmx 100 1 gm In Dextrose/Water 1 100ml.bag @ 100 mls/hr IVPB Q1H [facility] Rx#: [id number] Sodium Chloride 0.9% 1, 1800 400 000 ml @ 200 mls/hr IV . Q5H [facility] Rx#:[id number] Oral 0 Other: Voiding Method Diaper Diaper # Voids 3 2 - Labs CBC & Chem 7: 04/22/19 15:01 04/23/19 09:20 Labs: Abnormal Lab Results - Last 24 Hours (Table) 04/22/19 04/23/19 04/23/19 Range/Units 18:39 09:20 09:20 Chloride 109 H (98-107) mmol/L BUN 27 H (9-20) mg/dL Calcium 14.7 H* (8.4-10.2) mg/dL Ionized Calcium Lexi 8.3 H* (4.5-5.3) mg/dL Magnesium 1.5 L (1.6-2.3) mg/dL Total Bilirubin 1.4 H (0.2-1.3) mg/dL ALT 20 L (21-72) U/L Total Protein (PEP) 6.1 L (6.2-8.2) g/dL PTH Intact 2.2 L (14.0-72.0) pg/mL Assessment and Plan Plan: Assessment: 1. Acute kidney injury secondary to ATN secondary to hypercalcemia. Baseline creatinine near 1. Creatinine 1.28 on admission - 1.22 as of yesterday. 2. Hypercalcemia, non-parathyroid mediated. PTH is appropriately suppressed. Can be from volume contraction. Need to rule out other causes such as sarcoid and multiple myeloma - Vit D 36.1, GERSON 24. 3. Hypomagnesemia from poor oral intake. Status post placement. 4. Diarrhea. Rule out C. diff. Plan: I will decrease the rate of normal saline to 100 mL an hour. Follow-up 125 D3, PTH related peptide levels. Follow-up electrophoresis studies. Maintain calcitonin for now. Status post zoledronic acid on April 22. Morning labs pending.
[2019-04-24 09:34] LABS: Calcium 11.5 mg/dL (8.4-10.2)
[2019-04-24 09:50] LABS: Ionized Calcium 6.7 mg/dL (4.5-5.3)
[2019-04-24] MEDS: FAMOTIDINE 20 MG TAB PO SCH (11:45)
[2019-04-24] MEDS: MAGNESIUM OXIDE 400 MG TAB PO SCH ×2 (11:46→19:24)
[2019-04-24] MEDS: HEPARIN SODIUM,PORCINE 5,000 UNIT/ML 1 ML VIAL SQ SCH ×2 (13:44→21:47)
[2019-04-24] MEDS: MAGNESIUM SULFATE-D5W PMX 1 GM in DEXTROSE/WATER 1 100ML.BAG IVPB SCH ×2 (13:44→17:31)
--- NOTE | 2019-04-24 13:49 | P.PN ---
Subjective 73-year-old male with moderate to severe Alzheimer's dementia, significant weight loss and elevated calcium calcium of 16 serum calcium has come down patient was given calcitonin, zoledronic acid, creatinine did improve to 1.2 to patient is on IV fluids at 200 mL per hour patient's the 1-5 hydroxy vitamin D levels are within normal limits and the patient had normal response to PDH which is lowerDyspnea secondary to multifocal pneumonia PTH RP is being obtained from a nephrology evaluated the patient. Patient the still mild hypomagnesemia magnesium will be replaced. Patient had a recent CAT scan of the abdomen which did not show any malignancy patient and upper GI endoscopy which showed esophageal varices colonoscopy did not reveal any s ignificant abnormality pathologies from these upper GI and lower GI endoscopy did not reveal any malignancy. PSA testing is pending, serum protein electrophoresis is pending a total serum calcium has come down to 14.7 from 18.7 yesterday. Unable to get any kind of history from the patient patient the hypercalcemia and weight loss can be just due to Alzheimer's dementia and severe dehydration and poor Intake or there may be an occult Ligman see which we haven't found out yet 04/24/2019 So far all the workup is negative for any cancer. Patient hypercalcemia improved but patient is still less responsive does response but the excessively drowsy decreased level of consciousness. Patient although cannot protect his airway. We will obtain a CAT scan of the head and an EEG. I'll repeat the basic metabolic profile if creatinine comes down to be a CT of the chest see if there is any malignancy head CAT scan will help me to rule out any metastatic disease ideally need to be with contrast since I don't have today's creatinine cultures do CAT scan without contrast to rule to see if there is any intracranial abnormality. All inpatient medications were reviewed and appropriate changes in these medications as dictated in the interval history and assessment and plan. Objective - Vital Signs Vital signs: Vital Signs Temp 98.0 F 04/24/19 11:26 Pulse 78 04/24/19 11:26 Resp 16 04/24/19 11:26 BP 136/85 04/24/19 11:26 Pulse Ox 100 04/24/19 11:26 Intake & Output 04/23/19 04/24/19 04/24/19 18:59 06:59 18:59 Intake Total 1800 500 Balance 1800 500 Weight 52.617 kg Intake: Intake, IV Titration 1800 500 Amount Magnesium Sulfate-D5w Pmx 100 1 gm In Dextrose/Water 1 100ml.bag @ 100 mls/hr IVPB Q1H [facility] Rx#: [id number] Sodium Chloride 0.9% 1, 1800 400 000 ml @ 200 mls/hr IV . Q5H [facility] Rx#:[id number] Oral 0 Other: Voiding Method Diaper Diaper Diaper # Voids 3 2 1 - Exam PHYSICAL EXAMINATION: GENERAL: The patient is excessively sleepy arousable but unable to provide any history HEENT: Pupils are round and equally reacting to light. EOMI. No scleral icterus. No conjunctival pallor. Normocephalic, atraumatic. No pharyngeal erythema. No thyromegaly. CARDIOVASCULAR: S1 and S2 present. No murmurs, rubs, or gallops. PULMONARY: Chest is clear to auscultation, no wheezing or crackles. ABDOMEN: Soft, nontender, nondistended, normoactive bowel sounds. No palpable organomegaly. MUSCULOSKELETAL: No joint swelling or deformity. EXTREMITIES: No cyanosis, clubbing, or pedal edema. NEUROLOGICAL: Unable to assess SKIN: No rashes. - Labs CBC & Chem 7: 04/22/19 15:01 04/23/19 09:20 Labs: Abnormal Lab Results - Last 24 Hours (Table) 04/23/19 04/24/19 Range/Units 09:20 08:10 Calcium 11.5 H (8.4-10.2) mg/dL Ionized Calcium Lexi 6.7 H* (4.5-5.3) mg/dL PTH Intact 2.2 L (14.0-72.0) pg/mL Assessment and Plan Plan: -Hypercalcemia with weight loss: Patient is definitely dehydrated IV fluids were decreased to 100 mL/h calcitonin was discontinued patient encephalopathy did not improve. There is improvement in serum calcium which has come down to 11.5 ionized calcium is 6.7 -Acute renal failure secondary to hypercalcemia IV fluids as mentioned above repeat the basic metabolic profile tomorrow -Metabolic e encephalopathy due to be secondary to hypercalcemia but patient unresponsive is did not improve in spite of his significant improvement in his serum calcium will obtain a CAT scan of the head without contrast. Along with the EEG -Weight loss can be secondary to an cancer undiagnosed or maybe just because of his dementia and not eating well. No further all the workup is negative for any kind of malignancy, we may need to get a CAT scan of the chest. -Bradycardia: I do not have an EKG available EKG will be ordered and bradycardia secondary to beta [place] along with hypercalcemia. -Hypomagnesemia magnesium will be supplemented -Dementia appears to be as there was dementia. -Gastroesophageal reflux disease -Hyperlipidemia -Hypertension Patient will need pharmacologic GI and DVT prophylaxis
--- NOTE | 2019-04-24 14:45 | CT ---
EXAMINATION TYPE: CT brain wo con DATE OF EXAM: 04/24/2019 COMPARISON: MR brain 12/21/2017 HISTORY: Altered mental status Patient poor historian CT DLP: 1090.4 mGycm Automated exposure control for dose reduction was used. Helical imaging through the brain FINDINGS: Cortical atrophy, periventricular white matter low-attenuation are again noted as on prior brain MRI. There is no hemorrhage or hydrocephalus. The calvarium is intact. Inflammatory changes are present w ithin the maxillary sinuses, ethmoid air cells, sphenoid sinus as noted on prior MRI. Cerebral vascul ar calcifications are present. Orbits are symmetric. IMPRESSION: NO ACUTE BRAIN ABNORMALITY EVIDENT. AGE-RELATED CHANGES OF ATROPHY AND CHRONIC SMALL VESSEL ISCHEMIA. EXTENSIVE SINUS DISEASE.
[2019-04-24 15:30] LABS: Anion Gap 5 mmol/L; Blood Urea Nitrogen 25 mg/dL (9-20); Calcium 11.2 mg/dL (8.4-10.2); Carbon Dioxide 21 mmol/L (22-30); Chloride 112 mmol/L (98-107); Glucose 107 mg/dL (74-99); Potassium 3.6 mmol/L (3.5-5.1); Sodium 138 mmol/L (137-145)
[2019-04-24] MEDS: CALCITONIN INJ 200 UNIT/ML (MDV) VIAL SQ SCH (19:23)
[2019-04-24] MEDS: ATORVASTATIN 40 MG TAB PO SCH (19:24)
[2019-04-24] MEDS ORDERED: ACETAMINOPHEN IV (For NPO) 1,000 MG in EMPTY BAG 1 BAG IVPB SCH (22:00)
[2019-04-24] MEDS ORDERED: ACETAMINOPHEN IV (For NPO) 1,000 MG in EMPTY BAG 1 BAG IVPB PRN (23:20)
[2019-04-25] MEDS: MAGNESIUM OXIDE 400 MG TAB PO SCH ×2 (08:48→21:36)
[2019-04-25] MEDS: HEPARIN SODIUM,PORCINE 5,000 UNIT/ML 1 ML VIAL SQ SCH (08:48)
[2019-04-25] MEDS: FAMOTIDINE 20 MG TAB PO SCH (08:51)
[2019-04-25 09:52] LABS: ALT 22 U/L (21-72); AST 36 U/L (17-59); Alkaline Phosphatase 41 U/L (38-126); Anion Gap 5 mmol/L; Blood Urea Nitrogen 25 mg/dL (9-20); Calcium 10.3 mg/dL (8.4-10.2); Carbon Dioxide 22 mmol/L (22-30); Chloride 111 mmol/L (98-107); Glucose 123 mg/dL (74-99); Magnesium 1.6 mg/dL (1.6-2.3); Potassium 3.7 mmol/L (3.5-5.1); Sodium 138 mmol/L (137-145); Total Bilirubin 0.9 mg/dL (0.2-1.3); Total Protein 5.3 g/dL (6.3-8.2)
[2019-04-25 10:18] LABS: Ionized Calcium 6.1 mg/dL (4.5-5.3)
[2019-04-25] MEDS ORDERED: RX INFO: IV CONTRAST WAS GIVEN 1 EACH MISC MISCELLANE PRN (11:21)
--- NOTE | 2019-04-25 12:41 | P.PN ---
Subjective 73-year-old male with moderate to severe Alzheimer's dementia, significant weight loss and elevated calcium calcium of 16 serum calcium has come down patient was given calcitonin, zoledronic acid, creatinine did improve to 1.2 to patient is on IV fluids at 200 mL per hour patient's the 1-5 hydroxy vitamin D levels are within normal limits and the patient had normal response to PDH which is lowerDyspnea secondary to multifocal pneumonia PTH RP is being obtained from a nephrology evaluated the patient. Patient the still mild hypomagnesemia magnesium will be replaced. Patient had a recent CAT scan of the abdomen which did not show any malignancy patient and upper GI endoscopy which showed esophageal varices colonoscopy did not reveal any s ignificant abnormality pathologies from these upper GI and lower GI endoscopy did not reveal any malignancy. PSA testing is pending, serum protein electrophoresis is pending a total serum calcium has come down to 14.7 from 18.7 yesterday. Unable to get any kind of history from the patient patient the hypercalcemia and weight loss can be just due to Alzheimer's dementia and severe dehydration and poor Intake or there may be an occult Ligman see which we haven't found out yet 04/24/2019 So far all the workup is negative for any cancer. Patient hypercalcemia improved but patient is still less responsive does response but the excessively drowsy decreased level of consciousness. Patient although cannot protect his airway. We will obtain a CAT scan of the head and an EEG. I'll repeat the basic metabolic profile if creatinine comes down to be a CT of the chest see if there is any malignancy head CAT scan will help me to rule out any metastatic disease ideally need to be with contrast since I don't have today's creatinine cultures do CAT scan without contrast to rule to see if there is any intracranial abnormality. 04/25/2019 All the workup is negative for cancer will also obtain a CAT scan to rule out any pulmonary nodules or cancerous lesions head CT is within normal limits EEG is pending. Patient is awake today be more responsive able to answer questions but oriented 0, I'm expecting his mental status to improve. Magnesium will be replaced. Patient has some swallowing difficulty but able to swallow okay instructed the nursing status to stay at the bedside and follow all aspiration precautions and speech therapy was consulted will evaluate him on Saturday All inpatient medications were reviewed and appropriate changes in these medications as dictated in the interval history and assessment and plan. Objective - Vital Signs Vital signs: Vital Signs Temp 98.5 F 04/25/19 12:17 Pulse 72 04/25/19 12:17 Resp 17 04/25/19 12:17 BP 127/69 04/25/19 12:17 Pulse Ox 100 04/25/19 12:17 Intake & Output 04/24/19 04/25/19 04/25/19 18:59 06:59 18:59 Intake Total 800 Balance 800 Intake: Intake, IV Titration 800 Amount Sodium Chloride 0.9% 1, 800 000 ml @ 100 mls/hr IV . Q10H [facility] Rx#:[id number] Other: Voiding Method Diaper Diaper Diaper # Voids 1 3 - Exam PHYSICAL EXAMINATION: GENERAL: The patient is excessively sleepy arousable but unable to provide any history HEENT: Pupils are round and equally reacting to light. EOMI. No scleral icterus. No conjunctival pallor. Normocephalic, atraumatic. No pharyngeal erythema. No thyromegaly. CARDIOVASCULAR: S1 and S2 present. No murmurs, rubs, or gallops. PULMONARY: Chest is clear to auscultation, no wheezing or crackles. ABDOMEN: Soft, nontender, nondistended, normoactive bowel sounds. No palpable organomegaly. MUSCULOSKELETAL: No joint swelling or deformity. EXTREMITIES: No cyanosis, clubbing, or pedal edema. NEUROLOGICAL: Unable to assess SKIN: No rashes. - Labs CBC & Chem 7: 04/22/19 15:01 04/25/19 09:00 Labs: Abnormal Lab Results - Last 24 Hours (Table) 04/24/19 04/25/19 Range/Units 14:52 09:00 Chloride 112 H 111 H (98-107) mmol/L Carbon Dioxide 21 L (22-30) mmol/L BUN 25 H 25 H (9-20) mg/dL Glucose 107 H 123 H (74-99) mg/dL Calcium 11.2 H 10.3 H (8.4-10.2) mg/dL Ionized Calcium Lexi 6.1 H* (4.5-5.3) mg/dL Total Protein 5.3 L (6.3-8.2) g/dL Albumin 3.0 L (3.5-5.0) g/dL Assessment and Plan Plan: -Hypercalcemia with weight loss: Patient is definitely dehydrated IV fluids were decreased to 100 mL/h calcitonin was discontinued patient encephalopathy did not improve. There is improvement in serum calcium which has come down mental s tatus did improve and metabolic encephalopathy secondary to hypercalcemia is improving patient appears to be severely dehydrated although workup for cancer is negative CAT scan of the chest will be obtained. His creatinine improved -Acute renal failure secondary to hypercalcemia IV fluids as mentioned repeat the basic metabolic profile tomorrow, creatinine improved -Metabolic e encephalopathy due to be secondary to hypercalcemia but patient EEG pending CAT scan of the head did not show any significant abnormality -Weight loss: All the workup is negative for any cancer, patient lost weight b ecause of not eating well secondary to his dementia -Bradycardia: I do not have an EKG available EKG will be ordered and bradycardia secondary to beta phoenix along with hypercalcemia. -Hypomagnesemia magnesium will be supplemented -Dementia appears to have Alzheimer's dementia. Physical therapy and occupational therapy evaluation -Gastroesophageal reflux disease -Hyperlipidemia -Hypertension Patient will need pharmacologic GI and DVT prophylaxis
[2019-04-25 13:21] LABS: Gamma Globulin 0.77 g/dL (0.70-1.50)
[2019-04-25] MEDS: MAGNESIUM SULFATE-D5W PMX 1 GM in DEXTROSE/WATER 1 100ML.BAG IVPB SCH ×3 (13:56→17:59)
--- NOTE | 2019-04-25 14:40 | PN ---
PROGRESS NOTE HISTORY: Patient is seen for followup for hypercalcemia. Patient's calcium level has decreased from around 18 on admission to 10.3 now. His serum creatinine is 0.94. It was at 1.28 on initial admission. PTH is appropriately low at 2.2. PHYSICAL EXAMINATION: This morning, patient is awake. He is not in any acute distress. Blood pressure is 127/69, heart rate is 72 per minute. He is afebrile. Examination of the heart S1, S2. Examination of lungs, bilateral breath sounds are heard. Abdomen is soft, nontender. Exam of lower extremities shows no evidence of edema. The patient is moving all 4 extremities. LABS: Creatinine of 0.9, sodium 138, potassium 3.7, serum calcium down to 10.3. ASSESSMENT: 1. Hypercalcemia with appropriately low PTH levels with no evidence of monoclonal protein on urine immunofixation. The calcium has decreased to 10.3 now. The patient remains on IV fluids, which he is tolerating fairly well. No obvious source of malignancy detected yet. CT scan of the chest has been ordered. I will check an GERSON level if it has not been ordered. The patient is currently off of calcitonin. 2. Hypomagnesemia status post replacement. PLAN: Follow up on the PTH related peptide for possible underlying malignancy as a cause of the hypercalcemia. Continue the saline. Check chest x-ray/CT of the chest. MMODL / IJN: [id number] /
--- NOTE | 2019-04-25 17:05 | CT ---
"EXAMINATION TYPE: CT chest w con DATE OF EXAM: 04/25/2019 COMPARISON: Chest x-ray March 10, 2019 HISTORY: Pulmonary nodules CT DLP: 191.6 mGycm. Automated Exposure Control for Dose Reduction was Utilized. TECHNIQUE: CT scan of the thorax is performed following with IV Contrast, patient injected with 100 mL of Isovue 370. FINDINGS: LUNGS: There is background mild underlying emphysematous change. Lungs are grossly clear. No suspicio us nodules or masses. No pleural effusion or pneumothorax. Slightly suboptimal due to some respirator y motion artifact degradation. MEDIASTINUM: There are no greater than 1 cm hilar or mediastinal lymph nodes. No cardiomegaly or pe ricardial effusion is seen. There are filling defects in segmental branches right lower lobe with sanon bsegmental extension beginning axial image 92. No significant left-sided emboli. Moderate calcificati on in the proximal LAD is present which is noted marker for underlying coronary artery disease. RV ov er the LV ratio is less than 1. OTHER: Moderate to severe multilevel spurring in the thoracic spine is present. IMPRESSION: 1. No suspicious nodules or masses. No acute pulmonary process. 2. There is segmental right lower lobe pulmonary embolism with subsegmental extension. 2 attempts to call floor were unsuccessful in talking to patient's nurse and thus [employer] system was used. A [place] critical message alert has been initiated for Matt Kaiser MD via the [employer] | Critical Results System on 04/25/2019 5:02 PM. This message alert has been sent to Matt wilder MD via the preferences provided by the clinician for the receipt of Radiology Critical Findings. Message ID [id number]."
[2019-04-25] MEDS ORDERED: HEPARIN SODIUM,PORCINE 5,000 UNIT/ML 1 ML VIAL IV PRN (17:30)
[2019-04-25] MEDS ORDERED: HEPARIN SODIUM,PORCINE 10,000 UNIT/ML 1 ML VIAL IV ONE (17:30)
[2019-04-25] MEDS ORDERED: HEPARIN SOD,PORK IN 0.45% NACL 25,000 UNIT in 0.45% NACL 1 250ML.BAG IV SCH (17:45)
[2019-04-25 18:50] LABS: Basophils % (A) 0 %; Eosinophils # (A) 0.2 k/uL (0-0.7); Eosinophils % (A) 5 %; HCT 27.2 % (39.0-53.0); Lymphocytes # (A) 0.4 k/uL (1.0-4.8); Lymphocytes % (A) 13 %; MCH 31.6 pg (25.0-35.0); MCHC 34.5 g/dL (31.0-37.0); MCV 91.6 fL (80.0-100.0); Monocytes # (A) 0.2 k/uL (0-1.0); Monocytes % (A) 6 %; Neutrophils # (A) 2.4 k/uL (1.3-7.7); Neutrophils % (A) 74 %; RBC 2.97 m/uL (4.30-5.90); RDW 15.1 % (11.5-15.5); WBC 3.2 k/uL (3.8-10.6)
[2019-04-25 18:55] LABS: HGB 9.4 gm/dL (13.0-17.5)
[2019-04-25 19:00] LABS: INR 1.2 (<1.2); Partial Thromboplastin Time 24.8 sec (22.0-30.0); Prothrombin Time 12.2 sec (9.0-12.0)
[2019-04-25 19:25] LABS: Anisocytosis (M) Present; Hypochromasia (M) Present; Platelet Count 55 k/uL (150-450); Poikilocytosis (M) Present
[2019-04-25] MEDS: SODIUM CHLORIDE 0.9% 1,000 ML IV SCH ×2 (21:30→21:50)
[2019-04-25] MEDS: ATORVASTATIN 40 MG TAB PO SCH (21:36)
[2019-04-26] MEDS: MAGNESIUM OXIDE 400 MG TAB PO SCH ×2 (08:45→19:55)
[2019-04-26] MEDS: FAMOTIDINE 20 MG TAB PO SCH (08:45)
[2019-04-26] MEDS ORDERED: QUEtiapine 25 MG TAB PO PRN (10:26)
--- NOTE | 2019-04-26 11:49 | P.PN ---
Subjective 73-year-old male with moderate to severe Alzheimer's dementia, significant weight loss and elevated calcium calcium of 16 serum calcium has come down patient was given calcitonin, zoledronic acid, creatinine did improve to 1.2 to patient is on IV fluids at 200 mL per hour patient's the 1-5 hydroxy vitamin D levels are within normal limits and the patient had normal response to PDH which is lowerDyspnea secondary to multifocal pneumonia PTH RP is being obtained from a nephrology evaluated the patient. Patient the still mild hypomagnesemia magnesium will be replaced. Patient had a recent CAT scan of the abdomen which did not show any malignancy patient and upper GI endoscopy which showed esophageal varices colonoscopy did not reveal any s ignificant abnormality pathologies from these upper GI and lower GI endoscopy did not reveal any malignancy. PSA testing is pending, serum protein electrophoresis is pending a total serum calcium has come down to 14.7 from 18.7 yesterday. Unable to get any kind of history from the patient patient the hypercalcemia and weight loss can be just due to Alzheimer's dementia and severe dehydration and poor Intake or there may be an occult Ligman see which we haven't found out yet 04/24/2019 So far all the workup is negative for any cancer. Patient hypercalcemia improved but patient is still less responsive does response but the excessively drowsy decreased level of consciousness. Patient although cannot protect his airway. We will obtain a CAT scan of the head and an EEG. I'll repeat the basic metabolic profile if creatinine comes down to be a CT of the chest see if there is any malignancy head CAT scan will help me to rule out any metastatic disease ideally need to be with contrast since I don't have today's creatinine cultures do CAT scan without contrast to rule to see if there is any intracranial abnormality. 04/25/2019 All the workup is negative for cancer will also obtain a CAT scan to rule out any pulmonary nodules or cancerous lesions head CT is within normal limits EEG is pending. Patient is awake today be more responsive able to answer questions but oriented 0, I'm expecting his mental status to improve. Magnesium will be replaced. Patient has some swallowing difficulty but able to swallow okay instructed the nursing status to stay at the bedside and follow all aspiration precautions and speech therapy was consulted will evaluate him on Saturday04/26/2019 Patient has some agitation episodes for which we'll use Seroquel at nighttime. Patient mental status remains the same alert oriented 0 although much awake. Patient chest CAT scan did show incidental finding of pulmonary embolism on the right side for which patient was started on heparin which will be switched to Eliquis. All inpatient medications were reviewed and appropriate changes in these medications as dictated in the interval history and assessment and plan. Objective - Vital Signs Vital signs: Vital Signs Temp 98.5 F 04/26/19 05:00 Pulse 82 04/26/19 05:00 Resp 16 04/26/19 05:00 BP 135/70 04/26/19 05:00 Pulse Ox 99 04/26/19 05:00 Intake & Output 04/25/19 04/26/19 04/26/19 18:59 06:59 18:59 Intake Total 900 0.947 Balance 900 0.947 Intake: Intake, IV Titration 900 0.947 Amount Heparin Sod,Pork in 0.45% 0.947 NaCl 25,000 unit In 0.45 % NaCl 1 250ml.bag @ 18 UNITS/KG/HR 9.471 mls/hr IV .Q24H [facility] Rx#: [id number] Magnesium Sulfate-D5w Pmx 100 1 gm In Dextrose/Water 1 100ml.bag @ 100 mls/hr IVPB Q1H [facility] Rx#: [id number] Sodium Chloride 0.9% 1, 800 000 ml @ 100 mls/hr IV . Q10H [facility] Rx#:[id number] Other: Voiding Method Diaper Diaper Incontinent # Voids 3 4 - Exam PHYSICAL EXAMINATION: GENERAL: The patient is excessively sleepy arousable but unable to provide any history HEENT: Pupils are round and equally reacting to light. EOMI. No scleral icterus. No conjunctival pallor. Normocephalic, atraumatic. No pharyngeal erythema. No thyromegaly. CARDIOVASCULAR: S1 and S2 present. No murmurs, rubs, or gallops. PULMONARY: Chest is clear to auscultation, no wheezing or crackles. ABDOMEN: Soft, nontender, nondistended, normoactive bowel sounds. No palpable organomegaly. MUSCULOSKELETAL: No joint swelling or deformity. EXTREMITIES: No cyanosis, clubbing, or pedal edema. NEUROLOGICAL: Unable to assess SKIN: No rashes. - Labs CBC & Chem 7: 04/25/19 18:30 04/25/19 09:00 Labs: Abnormal Lab Results - Last 24 Hours (Table) 04/22/19 04/25/19 04/25/19 Range/Units 18:39 18:30 18:30 WBC 3.2 L (3.8-10.6) k/uL RBC 2.97 L (4.30-5.90) m/uL Hgb 9.4 L D (13.0-17.5) gm/dL Hct 27.2 L (39.0-53.0) % Plt Count 55 L D (150-450) k/uL Lymphocytes # 0.4 L (1.0-4.8) k/uL PT 12.2 H (9.0-12.0) sec INR 1.2 H (<1.2) APTT (22.0-30.0) sec Nwulk-2-Xvbaqtkxd 0.55 L (0.60-1.00) g/dL 04/26/19 Range/Units 01:40 WBC (3.8-10.6) k/uL RBC (4.30-5.90) m/uL Hgb (13.0-17.5) gm/dL Hct (39.0-53.0) % Plt Count (150-450) k/uL Lymphocytes # (1.0-4.8) k/uL PT (9.0-12.0) sec INR (<1.2) APTT 60.6 H (22.0-30.0) sec Nnlol-9-Aoxbutlyc (0.60-1.00) g/dL Assessment and Plan Plan: -Hypercalcemia with weight loss: Patient is definitely dehydrated IV fluids were decreased to 100 mL/h calcitonin was discontinued patient encephalopathy did not improve. There is improvement in serum calcium which has come down mental status did improve and metabolic encephalopathy secondary to hypercalcemia is improving patient appears to be severely dehydrated although workup for cancer is negative CAT scan of the chest did not show any cancer showed PE. Hypercalcemia improved serum fraction normalized -Agitation episodes secondary to encephalopathy start him on Seroquel as needed mostly at nighttime. -P on the right side: Eliquis as mentioned above -Acute renal failure secondary to hypercalcemia IV fluids as mentioned repeat the basic metabolic profile tomorrow, creatinine improved -Metabolic e encephalopathy due to be secondary to hypercalcemia but patient EEG pending CAT scan of the head did not show any significant abnormality -Weight loss: All the workup is negative for any cancer, patient lost weight because of not eating well secondary to his dementia -Bradycardia: I do not have an EKG available EKG will be ordered and bradycardia secondary to beta phoenix along with hypercalcemia. -Hypomagnesemia magnesium will be supplemented -Dementia appears to have Alzheimer's dementia. Physical therapy and occupational therapy evaluation -Gastroesophageal reflux disease -Hyperlipidemia -Hypertension Patient will need pharmacologic GI prophylaxis
[2019-04-26 12:00] LABS: Anion Gap 3 mmol/L; Blood Urea Nitrogen 27 mg/dL (9-20); Calcium 9.5 mg/dL (8.4-10.2); Carbon Dioxide 23 mmol/L (22-30); Chloride 114 mmol/L (98-107); Glucose 116 mg/dL (74-99); Magnesium 1.9 mg/dL (1.6-2.3); Potassium 3.2 mmol/L (3.5-5.1); Sodium 140 mmol/L (137-145)
[2019-04-26] MEDS: APIXABAN 5 MG TAB PO SCH ×2 (12:09→19:55)
[2019-04-26] MEDS: MAGNESIUM SULFATE-D5W PMX 1 GM in DEXTROSE/WATER 1 100ML.BAG IVPB SCH ×3 (12:10→15:43)
--- NOTE | 2019-04-26 14:50 | PN ---
PROGRESS NOTE Patient is seen for followup for hypercalcemia. This morning, patient has a sitter at bedside. He denies any significant complaints. The patient has had fair oral intake. His calcium has decreased to 9.5 mg/dL. PHYSICAL EXAMINATION: This morning, blood pressure was 139/74, heart rate of 82 per minute. He is afebrile. Examination of the heart S1, S2. Examination of the lungs bilateral breath sounds are heard. Abdomen is soft, nontender. Examination of lower extremities shows no edema. EXPERIMENTAL PSYCHOLOGIST exam shows patient moving all 4 extremities. LABS: Show serum calcium down to 9.5 mg/dL. Creatinine is 0.92, potassium is 3.2. ASSESSMENT: 1. Hypercalcemia with appropriately low PTH levels. No evidence of obvious malignancy. All other workup is negative, Blayne level is pending. Parathyroid hormone related protein is also pending. The patient has received bisphosphonate. Was also on calcitonin. His calcium is within range currently. 2. Hypokalemia secondary to decreased intake. Will replace. 3. Altered mentation, not much improved with improvement of calcium. 4. Dementia. 5. Pulmonary embolism noticed on chest CT. Currently maintained on anticoagulation. 6. Acute kidney injury secondary to hypercalcemia and volume depletion, currently improved. PLAN: Continue to encourage increased oral intake. If the patient is not eating, we will need to resume IV fluids. I see that the fluids have not been running. MMODL / IJN: [id number] /
--- NOTE | 2019-04-26 18:44 | EEG ---
ELECTROENCEPHALOGRAM REPORT DATE OF SERVICE: 04/26/2019. PREAMBLE: This is a 73-year-old male with history of dementia, has altered mental status. The patient was noncooperative during EEG testing as per the communication technician's report. CURRENT MEDICATIONS: Zofran, Mag-Ox, heparin, Pepcid, and Lipitor. EEG FINDINGS: A routine 21 channel awake digital EEG recording was accomplished utilizing the 08/2020 international system with bipolar and referential montages. The background consists of moderately well-developed, poorly regulated mixed frequency of low amplitude of the delta and theta activity. Some of eye blink artifact with myogenic activity was seen more on the frontal region. Photic stimulation was not performed. Different stages of sleep were not seen. No focal or generalized epileptiform activity was seen. IMPRESSION: This is an abnormal EEG due to background slowing of moderate degree. This is suggestive of generalized cerebral dysfunction, as can be seen with toxic metabolic encephalopathies or related to diffuse structural brain abnormality. Clinical correlation is recommended. No epileptiform activity was seen. MMLEAHL / IJN: [id number] /
[2019-04-26] MEDS: ATORVASTATIN 40 MG TAB PO SCH (19:55)
[2019-04-26] MEDS: SODIUM CHLORIDE 0.9% 1,000 ML IV SCH (19:56)
[2019-04-27] MEDS: SODIUM CHLORIDE 0.9% 1,000 ML IV SCH ×2 (03:19→11:38)
[2019-04-27] MEDS: FAMOTIDINE 20 MG TAB PO SCH (08:22)
[2019-04-27] MEDS: APIXABAN 5 MG TAB PO SCH (08:23)
[2019-04-27] MEDS: MAGNESIUM OXIDE 400 MG TAB PO SCH (08:23)
[2019-04-27 09:12] LABS: Calcium 9.2 mg/dL (8.4-10.2); Potassium 3.1 mmol/L (3.5-5.1)
[2019-04-27] MEDS ORDERED: POTASSIUM CHLORIDE ER 20 MEQ TAB.ER PO STA (09:41)
--- NOTE | 2019-04-27 09:44 | P.PN ---
Subjective Patient is seen in follow-up for hypercalcemia. Calcium level was 18.7 on admission and is down to 9.2 today (corrected calcium would be close to 10 based on albumin level). Patient is currently resting in bed. He just finished breakfast. No vomiting or diarrhea. Renal function is stable. Creatinine 1.0 today. Vital signs are stable. General: The patient appeared well nourished and normally developed. Lethargic. HEENT: Head exam is unremarkable. Neck is without jugular venous distension. LUNGS: Lungs are clear to auscultation and percussion. Breath sounds decreased. HEART: Rate and Rhythm are regular. First and second heart sounds normal. No murmurs, rubs or gallops. ABDOMEN: Abdominal exam reveals normal bowel sounds. Non-tender and non- distended. No evidence of peritonitis. EXTREMITITES: No clubbing, cyanosis, or edema. Objective - Vital Signs Vital signs: Vital Signs Temp 97.8 F 04/27/19 05:00 Pulse 86 04/27/19 05:00 Resp 18 04/27/19 05:00 BP 163/83 04/27/19 05:00 Pulse Ox 100 04/27/19 05:00 Intake & Output 04/26/19 04/27/19 04/27/19 18:59 06:59 18:59 Intake Total 1000 Balance 1000 Intake: Intake, IV Titration 1000 Amount Magnesium Sulfate-D5w Pmx 200 1 gm In Dextrose/Water 1 100ml.bag @ 100 mls/hr IVPB Q1H [facility] Rx#: [id number] Sodium Chloride 0.9% 1, 800 000 ml @ 100 mls/hr IV . Q10H [facility] Rx#:[id number] Other: Voiding Method Incontinent Incontinent # Voids 2 - Labs CBC & Chem 7: 04/25/19 18:30 04/27/19 08:24 Labs: Abnormal Lab Results - Last 24 Hours (Table) 04/26/19 04/26/19 04/27/19 Range/Units 10:38 10:38 08:24 APTT 46.5 H (22.0-30.0) sec Potassium 3.2 L 3.1 L (3.5-5.1) mmol/L Chloride 114 H 114 H (98-107) mmol/L BUN 27 H 25 H (9-20) mg/dL Glucose 116 H 151 H (74-99) mg/dL Assessment and Plan Plan: Assessment: 1. Acute kidney injury secondary to ATN secondary to hypercalcemia. Baseline creatinine near 1. Creatinine 1.28 on admission - 1.0 today. 2. Hypercalcemia, non-parathyroid mediated. PTH is appropriately suppressed. Can be from volume contraction. Need to rule out other causes such as sarcoid and multiple myeloma - Vit D 36.1, GERSON 24. 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 Calcium level has been trending down. 3. Hypomagnesemia from poor oral intake. Status post placement. 4. Right lower lobe PE maintained on anticoagulation. 5. Hypokalemia from poor oral intake. Plan: I will decrease the rate of normal saline to 70 mL an hour. Follow-up 125 D3, PTH related peptide levels. Status post zoledronic acid on April 22. Replace potassium. 60 mEq today. Check magnesium level. Repeat electrolytes in the morning.
[2019-04-27 12:15] VITALS: BP 123/77; PULSE 96; RESP 16; TEMP 97.3
--- NOTE | 2019-04-27 13:00 | P.DS ---
Providers Date of admission: 04/22/19 19:33 Attending physician: Matt Kaiser Consults: 04/22/19 17:49 Consult Physician Routine Consulting Provider: Karsten Noble Consult Reason/Comments: Hypercalcemia Do you want consulting provider notified?: Yes Primary care physician: [facility] Course: 73-year-old male with moderate to severe Alzheimer's dementia, significant weight loss and elevated calcium calcium of 16 serum calcium has come down patient was given calcitonin, zoledronic acid, creatinine did improve to 1.2 to patient is on IV fluids at 200 mL per hour patient's the 1-5 hydroxy vitamin D levels are within normal limits and the patient had normal response to PDH which is lowerDyspnea secondary to multifocal pneumonia PTH RP is being obtained from a nephrology evaluated the patient. Patient the still mild hypomagnesemia magnesium will be replaced. Patient had a recent CAT scan of the abdomen which did not show any malignancy patient and upper GI endoscopy which showed esophageal varices colonoscopy did not reveal any significant abnormality pathologies from these upper GI and lower GI endoscopy did not reveal any malignancy. PSA testing is pending, serum protein electrophoresis is pending a total serum calcium has come down to 14.7 from 18.7 yesterday. Unable to get any kind of history from the patient patient the hypercalcemia and weight loss can be just due to Alzheimer's dementia and severe dehydration and poor Intake or there may be an occult Ligman see which we haven't found out yet 04/24/2019 So far all the workup is negative for any cancer. Patient hypercalcemia improved but patient is still less responsive does response but the excessively drowsy decreased level of consciousness. Patient although cannot protect his airway. We will obtain a CAT scan of the head and an EEG. I'll repeat the basic metabolic profile if creatinine comes down to be a CT of the chest see if there is any malignancy head CAT scan will help me to rule out any metastatic disease ideally need to be with contrast since I don't have today's creatinine cultures do CAT scan without contrast to rule to see if there is any intracranial abnormality. 04/25/2019 All the workup is negative for cancer will also obtain a CAT scan to rule out any pulmonary nodules or cancerous lesions head CT is within normal limits EEG is pending. Patient is awake today be more responsive able to answer questions but oriented 0, I'm expecting his mental status to improve. Magnesium will be replaced. Patient has some swallowing difficulty but able to swallow okay inst ructed the nursing status to stay at the bedside and follow all aspiration precautions and speech therapy was consulted will evaluate him on Saturday04/26/2019 Patient has some agitation episodes for which we'll use Seroquel at nighttime. Patient mental status remains the same alert oriented 0 although much awake. Patient chest CAT scan did show incidental finding of pulmonary embolism on the right side for which patient was started on heparin which will be switched to Eliquis. 04/27/2019 Patient is still alert oriented 0 but patient is very pleasant today and looks much better will be discharged to subacute rehabilitation today. Patient will be discharged on 6 more days including today often twice a day of Eliquis followed by 5 mg twice a day PHYSICAL EXAMINATION: GENERAL: The patient is excessively sleepy arousable but unable to provide any history HEENT: Pupils are round and equally reacting to light. EOMI. No scleral icterus. No conjunctival pallor. Normocephalic, atraumatic. No pharyngeal erythema. No thyromegaly. CARDIOVASCULAR: S1 and S2 present. No murmurs, rubs, or gallops. PULMONARY: Chest is clear to auscultation, no wheezing or crackles. ABDOMEN: Soft, nontender, nondistended, normoactive bowel sounds. No palpable organomegaly. MUSCULOSKELETAL: No joint swelling or deformity. EXTREMITIES: No cyanosis, clubbing, or pedal edema. NEUROLOGICAL: Unable to assess SKIN: No rashes. Assessment and Plan Plan: -Hypercalcemia with weight loss: Believed to be secondary to dehydration all the workup for cancer is negative. Patient had an incidental finding of right-sided pulmonary embolism for which patient is being discharged on Eliquis -Agitation episodes secondary to encephalopathy start him on Seroquel as needed mostly at nighttime. -P on the right side: Eliquis as mentioned above -Acute renal failure secondary to hypercalcemia improved with IV fluids -Metabolic e encephalopathy due to be secondary to hypercalcemia, EEG is consistent with metabolic encephalopathy CAT scan is negative -Weight loss: All the workup is negative for any cancer, patient lost weight because of not eating well secondary to his dementia -Bradycardia: Resolved now -Hypomagnesemia magnesium will be supplemented -Dementia appears to have Alzheimer's dementia. Appears to have advanced dementia -Gastroesophageal reflux disease -Hyperlipidemia -Hypertension Patient Condition at Discharge: Fair Plan - Discharge Summary Discharge Rx Participant: Yes New Discharge Prescriptions: New Apixaban [Eliquis] 10 mg PO BID #0 tab Famotidine [Pepcid] 20 mg PO DAILY tab QUEtiapine [SEROquel] 25 mg PO HS PRN #3 tab PRN Reason: Agitation Or Acute Anxiety Continue Memantine [Namenda] 10 mg PO HS Atorvastatin [Lipitor] 40 mg PO HS Megestrol [Megace] 40 mg PO DAILY Magnesium Oxide [Mag-Ox] 250 mg PO BID Niacin [Niaspan] 500 mg PO DAILY [place]-3 Fatty Acids/Fish Oil [Fish Oil 1,000 mg Softgel] 1 cap PO DAILY Folic Acid 0.4 mg PO DAILY Discontinued Atenolol [Tenormin] 12.5 mg PO DAILY Discharge Medication List Atorvastatin [Lipitor] 40 mg PO HS 03/26/19 [History] Folic Acid 0.4 mg PO DAILY 03/26/19 [History] Magnesium Oxide [Mag-Ox] 250 mg PO BID 03/26/19 [History] Megestrol [Megace] 40 mg PO DAILY 03/26/19 [History] Memantine [Namenda] 10 mg PO HS 03/26/19 [History] Niacin [Niaspan] 500 mg PO DAILY 03/26/19 [History] [place]-3 Fatty Acids/Fish Oil [Fish Oil 1,000 mg Softgel] 1 cap PO DAILY 03/26/19 [History] Apixaban [Eliquis] 10 mg PO BID #0 tab 04/27/19 [Rx] Famotidine [Pepcid] 20 mg PO DAILY tab 04/27/19 [Rx] QUEtiapine [SEROquel] 25 mg PO HS PRN #3 tab 04/27/19 [Rx] Follow up Appointment(s)/Referral(s): Mehran Watt MD [STAFF PHYSICIAN] - 1 Week Yordy Vaz DO [Primary Care Provider] - 3 Days Activity/Diet/Wound Care/Special Instructions: 1. Eliquis 10 mg BID x 6 doses including today (04/27/19) Then 5 mg BID. 2. Regular diet, chopped foods. 3. Activity as tolerated Discharge Disposition: TRANSFER TO SNF/F
[2019-04-29 06:29] LABS: Vitamin E (Alpha Tocopherol) 967 ug/dL (500-1800)
== END 2019-04-27 14:55 | DRG 640 ==
LOC: EC 13:03 → 3NMEDONC 19:33
PROVIDERS: ADMIT Internal Medicine; ATTEND Internal Medicine
DX: E83.52 Hypercalcemia (principal); G93.41 Metabolic encephalopathy; I26.99 Other pulmonary embolism without acute cor pulmonale; N17.9 Acute kidney failure, unspecified; E83.42 Hypomagnesemia; E86.0 Dehydration; F02.80 Dementia in other diseases classified elsewhere, unspecified severity, without behavioral disturbance, psychotic disturbance, mood disturbance, and anxiety; G30.9 Alzheimer's disease, unspecified; R00.1 Bradycardia, unspecified; R63.0 Anorexia; E11.9 Type 2 diabetes mellitus without complications; E78.5 Hyperlipidemia, unspecified; E87.6 Hypokalemia; T50.995A Adverse effect of other drugs, medicaments and biological substances, initial encounter; H91.90 Unspecified hearing loss, unspecified ear; I10 Essential (primary) hypertension; K21.9 Gastro-esophageal reflux disease without esophagitis; F32.9 Major depressive disorder, single episode, unspecified; F41.9 Anxiety disorder, unspecified; M19.90 Unspecified osteoarthritis, unspecified site; R32 Unspecified urinary incontinence; R19.7 Diarrhea, unspecified; R63.4 Abnormal weight loss; R45.1 Restlessness and agitation; Z66 Do not resuscitate; Z79.899 Other long term (current) drug therapy; Z87.891 Personal history of nicotine dependence
CPT/HCPCS: 36415; 70450; 71260; 80048; 80053; 81001; 82164; 82306; 82310; 82330; 82652; 83519; 83605; 83735; 83970; 84075; 84100; 84153; 84165; 84443; 84446; 84484; 85025; 85610; 85730; 86334; 86335; 93005; 94760; 95816; 96361; 96365; 96375; 99285

== ENCOUNTER 2019-04-30 02:50 | Inpatient (IN) | payer MEDICARE ==
--- NOTE | 2019-04-30 02:58 | ED ---
General Adult HPI - General Stated complaint: abnormal labs Time Seen by Provider: 04/30/19 02:52 - History of Present Illness Initial comments: Jewel is a demented 73-year-old gentleman who presents to the emergency department today for evaluation of decreasing hemoglobin. [facility] patient's hemoglobin was checked on April 25 and was 9.4, upon recheck it was noted to be 6.3. They were called with these critical values during the night tonight and decided to transfer him to the hospital for evaluation. Upon arrival patient's only complaint is that he was walking in the middle of night to be brought to the hospital. The patient's medical record he was previously on [facility] uncertain if he is taking it now. Patient's arrived at bedside she was advised that the patient had abnormal labs and was being sent to the emergency department. She does confirm that the patient would consent to blood transfusion and IV fluids however he is a DO NOT RESUSCITATE and would not want any resuscitative measures or life support. - Related Data Home Medications Medication Instructions Recorded Confirmed Atorvastatin [Lipitor] 40 mg PO HS 03/26/19 04/22/19 Folic Acid 0.4 mg PO DAILY 03/26/19 04/22/19 Magnesium Oxide [Mag-Ox] 250 mg PO BID 03/26/19 04/22/19 Megestrol [Megace] 40 mg PO DAILY 03/26/19 04/22/19 Memantine [Namenda] 10 mg PO HS 03/26/19 04/22/19 Niacin [Niaspan] 500 mg PO DAILY 03/26/19 04/22/19 [place]-3 Fatty Acids/Fish Oil [Fish 1 cap PO DAILY 03/26/19 04/22/19 Oil 1,000 mg Softgel] LORazepam [Ativan] 0.5 mg PO Q6HR PRN 04/30/19 04/30/19 LORazepam [Ativan] 1 mg IM Q8HR PRN 04/30/19 04/30/19 Omeprazole 20 mg PO DAILY 04/30/19 04/30/19 Previous Rx's Medication Instructions Recorded Apixaban [Eliquis] 10 mg PO BID #0 tab 04/27/19 Famotidine [Pepcid] 20 mg PO DAILY tab 04/27/19 QUEtiapine [SEROquel] 25 mg PO HS PRN #3 tab 04/27/19 Allergies Allergy/AdvReac Type Severity Reaction Status Date / Time No Known Allergies Allergy Verified 04/30/19 03:07 Review of Systems ROS Statement: Those systems with pertinent positive or pertinent negative responses have been documented in the HPI. ROS Other: All systems not noted in ROS Statement are negative. Past Medical History Past Medical History: Dementia, Diabetes Mellitus, GERD/Reflux, Hearing Disorder / Deafness, Hyperlipidemia, Hypertension, Memory Impairment, Osteoarthritis (OA) Additional Past Medical History / Comment(s): GLAUCOMA, Alex- per took pt off metformin because lab values were good and such drastic weight loss, incontinence of urine/stool no control, difficulty swallowing- has been choking on pills History of Any Multi-Drug Resistant Organisms: None Reported Past Surgical History: Hernia Repair Additional Past Surgical History / Comment(s): SURGERY FOR GLAUCOMA- BILATERAL EYES , BILATERAL INGUINAL HERNIA SURGERY, KIDNEY SURGERY-CYST REMOVED , adrenal gland removed Past Anesthesia/Blood Transfusion Reactions: No Reported Reaction Past Psychological History: Anxiety, Depression Smoking Status: Former smoker Past Alcohol Use History: None Reported Additional Past Alcohol Use History / Comment(s): STARTED SMOKING AT AGE 18 QUIT AGE 19 SMOKED 1/2PPD OR LESS Past Drug Use History: None Reported - Past Family History Mother Family Medical History: No Reported History General Exam - General Exam Comments Initial Comments: Physical Exam GENERAL: Cachectic elderly gentleman HENT: Normocephalic, Atraumatic. Temporal wasting EYES: PERRL, EOMI Conjunctival pallor PULMONARY: Unlabored respirations. No audible rales rhonchi or wheezing was noted. CARDIOVASCULAR: RRR ABDOMEN: Soft and nontender with normal bowel sounds. SKIN: Pale : Rectal exam with black stool Diapered NEUROLOGIC: Alert and oriented to person, able to identify that he is at a hospital like confused about date, events leading up to hospitalization and is on medical history MUSCULOSKELETAL: Generalized atrophy PSYCHIATRIC: Pleasantly demented Course Vital Signs 04/30/19 03:04 Temperature 98.2 F Pulse Rate 75 Respiratory 18 Rate Blood Pressure 137/81 O2 Sat by Pulse 100 Oximetry Medical Decision Making - Medical Decision Making Patient was seen and evaluated history is obtained from EMS, medical record and at bedside This is a pleasantly demented 73-year-old gentleman who is noted to have decrease in hemoglobin on routine labs at prison uncertain why the repeat labs are ordered on exam the patient is very malnourished, cachectic appearing, pale with conjunctival pallor but hemodynamically stable. Patient is diapered and has black stool in his diaper no bright red bleeding is noted. Labs and blood transfusion were ordered Patient hemodynamically stable for the floor, will be admitted for melena and acute pancytopenia. - Lab Data Result diagrams: 04/30/19 02:57 04/30/19 02:57 Lab Results 04/30/19 04/30/19 04/30/19 Range/Units 02:57 02:57 02:57 WBC 2.5 L (3.8-10.6) k/uL RBC 2.19 L (4.30-5.90) m/uL Hgb 6.9 L* D (13.0-17.5) gm/dL Hct 20.0 L (39.0-53.0) % MCV 91.7 (80.0-100.0) fL MCH 31.6 (25.0-35.0) pg MCHC 34.5 (31.0-37.0) g/dL RDW 15.7 H (11.5-15.5) % Poikilocytosis Moderate PT (9.0-12.0) sec INR (<1.2) APTT (22.0-30.0) sec Sodium 141 (137-145) mmol/L Potassium 3.7 (3.5-5.1) mmol/L Chloride 115 H (98-107) mmol/L Carbon Dioxide 21 L (22-30) mmol/L Anion Gap 5 mmol/L BUN 29 H (9-20) mg/dL Creatinine 1.39 H (0.66-1.25) mg/dL Est GFR (CKD-EPI)AfAm 58 (>60 ml/min/1.73 sqM) Est GFR (CKD-EPI)NonAf 50 (>60 ml/min/1.73 sqM) Glucose 112 H (74-99) mg/dL Calcium 8.7 (8.4-10.2) mg/dL Total Bilirubin 0.9 (0.2-1.3) mg/dL AST 44 (17-59) U/L ALT 63 (21-72) U/L Alkaline Phosphatase 50 (38-126) U/L Total Protein 5.4 L (6.3-8.2) g/dL Albumin 3.2 L (3.5-5.0) g/dL Stool Occult Blood Positive (Negative) 04/30/19 Range/Units 02:57 WBC (3.8-10.6) k/uL RBC (4.30-5.90) m/uL Hgb (13.0-17.5) gm/dL Hct (39.0-53.0) % MCV (80.0-100.0) fL MCH (25.0-35.0) pg MCHC (31.0-37.0) g/dL RDW (11.5-15.5) % Poikilocytosis PT 12.6 H (9.0-12.0) sec INR 1.2 H (<1.2) APTT 23.9 (22.0-30.0) sec Sodium (137-145) mmol/L Potassium (3.5-5.1) mmol/L Chloride (98-107) mmol/L Carbon Dioxide (22-30) mmol/L Anion Gap mmol/L BUN (9-20) mg/dL Creatinine (0.66-1.25) mg/dL Est GFR (CKD-EPI)AfAm (>60 ml/min/1.73 sqM) Est GFR (CKD-EPI)NonAf (>60 ml/min/1.73 sqM) Glucose (74-99) mg/dL Calcium (8.4-10.2) mg/dL Total Bilirubin (0.2-1.3) mg/dL AST (17-59) U/L ALT (21-72) U/L Alkaline Phosphatase (38-126) U/L Total Protein (6.3-8.2) g/dL Albumin (3.5-5.0) g/dL Stool Occult Blood (Negative) Critical Care Time Critical Care Time: Yes Total Critical Care Time: 30 Disposition Clinical Impression: Pancytopenia, Melena, Cachexia Disposition: ADMITTED IP TO THIS [facility] Condition: Serious Is patient prescribed a controlled substance at d/c from ED?: No Referrals: Souleymane Haile MD [Primary Care Provider] - 1-2 days
[2019-04-30] MEDS ORDERED: PANTOPRAZOLE 40 MG/10 ML VIAL IVP STA (02:59)
[2019-04-30] MEDS ORDERED: MORPHINE SULFATE 4 MG/ML SYRINGE IV PRN (03:07)
[2019-04-30] MEDS ORDERED: ONDANSETRON 4 MG/2 ML VIAL IVP PRN (03:07)
[2019-04-30] MEDS ORDERED: LORazepam 2 MG/ML INJ IV PRN (03:07)
[2019-04-30] MEDS ORDERED: NALOXONE 0.4 MG/ML 1 ML VIAL IV PRN (03:07)
[2019-04-30 03:17] LABS: Basophils % (A) 1 %; Eosinophils # (A) 0.1 k/uL (0-0.7); Eosinophils % (A) 3 %; Lymphocytes # (A) 0.8 k/uL (1.0-4.8); Lymphocytes % (A) 30 %; MCH 31.6 pg (25.0-35.0); MCHC 34.5 g/dL (31.0-37.0); MCV 91.7 fL (80.0-100.0); Mean Platelet Volume 8.5; Monocytes # (A) 0.2 k/uL (0-1.0); Monocytes % (A) 6 %; Neutrophils # (A) 1.5 k/uL (1.3-7.7); Neutrophils % (A) 57 %; Poikilocytosis Moderate; RBC 2.19 m/uL (4.30-5.90); RDW 15.7 % (11.5-15.5); WBC 2.5 k/uL (3.8-10.6)
[2019-04-30 03:23] LABS: INR 1.2 (<1.2); Partial Thromboplastin Time 23.9 sec (22.0-30.0); Prothrombin Time 12.6 sec (9.0-12.0)
[2019-04-30 03:24] LABS: HGB 6.9 gm/dL (13.0-17.5)
[2019-04-30 03:25] LABS: Albumin 3.2 g/dL (3.5-5.0); Calcium 8.7 mg/dL (8.4-10.2); Potassium 3.7 mmol/L (3.5-5.1); Total Bilirubin 0.9 mg/dL (0.2-1.3); Total Protein 5.4 g/dL (6.3-8.2)
[2019-04-30 03:47] LABS: Platelet Count 81 k/uL (150-450)
[2019-04-30 04:44] VITALS: BMI 19.1
[2019-04-30] MEDS ORDERED: PANTOPRAZOLE 40 MG/10 ML VIAL IV SCH (09:00)
--- NOTE | 2019-04-30 09:24 | P.CONS ---
History of Present Illness - Reason for Consult Consult date: 04/30/19 GI bleed anemia Requesting physician: Matt Kaiser - Chief Complaint Anemia melena - History of Present Illness History obtained from medical records patient's spouse underlying history of advanced dementia. 73-year-old gentleman recently diagnosed with pulmonary emb olism maintained on ELIQUIS, GERD, diabetes mellitus, hypertension, hyperlipidemia. Patient was recently hospitalized for weakness transfer to [facility] and returned with reports of a low hemoglobin as well as black colored bowel movements per [facility] staff. Since admission no reports of melanotic bowel movements. Admission hemoglobin 6.9. MCV 91. Platelet 81,000. INR 1.2. BUN 29. Creatinine 1.3. White count 2.5. LFTs within normal limits. Review of previous medical records hemoglobin was 9.4 5 days ago and 13.6 on April 22. According to spouse no history of peptic ulcer disease GI bleeds. No reports of abdominal pain gross hematemesis coffee-ground emesis or hematochezia. Patient underwent screening outpatient EGD colonoscopy 03/27/[address] Brewster with findings of gastric varices no evidence of esophageal varices. Colonoscopy within normal limits and evidence of internal hemorrhoids. Follow-up CT abdomen and pelvis 10 days later redemonstrated gastric varices no other acute intra-abdominal pathology identified. No obvious radiographic evidence of liver disease and/or cirrhosis. No history of known liver disorders or EtOH abuse. Patient has been progressive ly losing weight unintentionally over last 6 months estimates about 40 pounds. Appetite fluctuates up spouse says it's been fairly healthy lately. Last dose of ELIQUIS yesterday morning. Review of Systems Obtained from spouse Constitutional: Denies fever, chills, sweats, weight gain, or loss. Advanced dementia. HEENT: Negative for migraines, blurred vision or loss, earaches, drainage, tinnitus, oral mucosal lesions, dysphagia, or odynophagia. Cardiac: Negative for chest pain, arrhythmias, or palpitation. Respiratory: Negative for shortness of breath, hemoptysis, cough, or sputum production. Gastrointestinal: See HPI for pertinent findings. Genitourinary: Negative for hematuria, urgency, frequency, polyuria, dysuria, or penile discharge. Musculoskeletal: Negative for muscle aches, swelling, arthritis, and arthralgias. Neurologic: Negative for stroke or TIA. Endocrine: Negative for thyroid problems. Skin: Negative for rash or itching. Psychiatric: Negative history for depression and anxiety ROS unobtainable: due to mental status Past Medical History Past Medical History: Dementia, Diabetes Mellitus, GERD/Reflux, Hearing Disorder / Deafness, Hyperlipidemia, Hypertension, Memory Impairment, Osteoarthritis (OA) Additional Past Medical History / Comment(s): GLAUCOMA, Alex- per took pt off metformin because lab values were good and such drastic weight loss, incontinence of urine/stool no control, difficulty swallowing- has been choking on pills History of Any Multi-Drug Resistant Organisms: None Reported Past Surgical History: Hernia Repair Additional Past Surgical History / Comment(s): SURGERY FOR GLAUCOMA- BILATERAL EYES , BILATERAL INGUINAL HERNIA SURGERY, KIDNEY SURGERY-CYST REMOVED , adrenal gland removed Past Anesthesia/Blood Transfusion Reactions: No Reported Reaction Past Psychological History: Anxiety, Depression Smoking Status: Former smoker Past Alcohol Use History: None Reported Additional Past Alcohol Use History / Comment(s): STARTED SMOKING AT AGE 18 QUIT AGE 19 SMOKED 1/2PPD OR LESS Past Drug Use History: None Reported - Past Family History Mother Family Medical History: No Reported History Medications and Allergies Home Medications Medication Instructions Recorded Confirmed Type Atorvastatin [Lipitor] 40 mg PO HS 03/26/19 04/30/19 History Folic Acid 0.4 mg PO DAILY 03/26/19 04/30/19 History Magnesium Oxide [Mag-Ox] 250 mg PO BID 03/26/19 04/30/19 History Megestrol [Megace] 40 mg PO DAILY 03/26/19 04/30/19 History Memantine [Namenda] 10 mg PO HS@199903/26/19 04/30/19 History Niacin [Niaspan] 500 mg PO DAILY 03/26/19 04/30/19 History [place]-3 Fatty Acids/Fish Oil [Fish 1 cap PO DAILY 03/26/19 04/30/19 History Oil 1,000 mg Softgel] Apixaban [Eliquis] 5 mg PO BID 04/30/19 04/30/19 History LORazepam [Ativan] 0.5 mg PO Q6HR PRN 04/30/19 04/30/19 History LORazepam [Ativan] 1 mg IM Q8HR PRN 04/30/19 04/30/19 History Omeprazole 20 mg PO DAILY 04/30/19 04/30/19 History Allergies Allergy/AdvReac Type Severity Reaction Status Date / Time No Known Allergies Allergy Verified 04/30/19 08:00 Physical Exam Vitals: Vital Signs Temp Pulse Pulse Resp BP BP Pulse Ox 04/30/19 07:33 97.6 F 77 15 131/73 100 04/30/19 04:53 97.6 F 79 16 137/84 100 04/30/19 03:58 89 17 138/81 100 04/30/19 03:04 98.2 F 75 18 137/81 100 04/30/19 03:00 86 18 137/81 98 Intake and Output 04/29/19 04/30/19 04/30/19 22:59 06:59 14:59 Intake Total 0 Balance 0 Intake: Oral 0 Other: Weight 55.2 kg General appearance: The patient is alert, confused, cachectic in no acute distress. HET: Head is normocephalic and atraumatic. Pupils are equal and reactive. Oropharynx is clear without lesions. Neck: Supple without lymphadenopathy. Trachea midline. Heart: S1 S2. Regular rate and rhythm. Lungs: No crackles or wheezes are heard. Abdomen: Soft, nontender, nondistended with bowel sounds. No peritoneal signs. No palpable organomegaly or masses. Extremities: Normal skin color and turgor. No cyanosis, rash, ulceration, clubbing, or edema. Radial and pedal pulses are 2/4 bilaterally. Neurological: No focal deficits. Strength and sensation are grossly intact. Results CBC & Chem 7: 04/30/19 02:57 04/30/19 02:57 Labs: Abnormal Lab Results - Last 24 Hours (Table) 04/30/19 04/30/19 04/30/19 Range/Units 02:57 02:57 02:57 WBC 2.5 L (3.8-10.6) k/uL RBC 2.19 L (4.30-5.90) m/uL Hgb 6.9 L* D (13.0-17.5) gm/dL Hct 20.0 L (39.0-53.0) % RDW 15.7 H (11.5-15.5) % Plt Count 81 L (150-450) k/uL Lymphocytes # 0.8 L (1.0-4.8) k/uL PT 12.6 H (9.0-12.0) sec INR 1.2 H (<1.2) Chloride 115 H (98-107) mmol/L Carbon Dioxide 21 L (22-30) mmol/L BUN 29 H (9-20) mg/dL Creatinine 1.39 H (0.66-1.25) mg/dL Glucose 112 H (74-99) mg/dL Total Protein 5.4 L (6.3-8.2) g/dL Albumin 3.2 L (3.5-5.0) g/dL Assessment and Plan (1) Acute GI bleeding Narrative/Plan: 73-year-old gentleman with a history of advanced dementia recent pulmonary embolus and maintained on anticoagulation as well as elective EGD colonoscopy screening one month ago with findings of gastric varices and normal colon presents from ECF with reports of anemia as well as melanotic bowel movements. Possible bleeding from gastric varices exacerbated by anticoagulation other upper GI small up pathology cannot be excluded. Current Visit: Yes Status: Acute Code(s): K92.2 - GASTROINTESTINAL HEMORRHAGE, UNSPECIFIED SNOMED Code(s): 43051467 (2) Acute blood loss anemia Current Visit: Yes Status: Acute Code(s): D62 - ACUTE POSTHEMORRHAGIC ANEMIA SNOMED Code(s): 103488426 (3) Pulmonary embolism Current Visit: Yes Status: Acute Code(s): I26.99 - OTHER PULMONARY EMBOLISM WITHOUT ACUTE COR PULMONALE SNOMED Code(s): 38061741 (4) Gastric varices Current Visit: Yes Status: Acute Code(s): I86.4 - GASTRIC VARICES SNOMED Code(s): 82302593 (5) Cachexia Current Visit: Yes Status: Acute Code(s): R64 - CACHEXIA SNOMED Code(s): 935793705 (6) Melena Current Visit: Yes Status: Acute Code(s): K92.1 - MELENA SNOMED Code(s): 8356532 Plan: 1. Light diet as tolerated. Blood transfusion scheduled today. CBC monitoring. Continue Protonix 40 mg twice daily. Recent surveillance EGD planned for tomorrow afternoon based on findings will further direct. Hold anticoagulation. We'll follow closely with you. The population health manager has discussed the risks, benefits and alternative therapies for the above-mentioned procedure and for both sedation/analgesia as well as necessary blood product administration, if indicated, as they pertain to this patient. The patient has indicated understanding and acceptance of the risks and procedures discussed. Thank you for this kind referral and the opportunity to participate in the care of your patient. This consultation was discussed with Dr. Brewster. The impression and plan of care have been directed as dictated.
[2019-04-30] MEDS ORDERED: QUEtiapine 25 MG TAB PO PRN (12:09)
--- NOTE | 2019-04-30 12:15 | P.HPIM ---
History of Present Illness 73-year-old gentleman with advanced dementia was recently diagnosed with pulmonary embolism was discharged on Eliquis came back again because of dark tarry stools multiple episodes and found to have drop in hemoglobin from 9.4- 6.3. Patient was started on Protonix twice a day will receive 1 more unit of blood transfusion. Patient was admitted for hypercalcemia all the workup for cancer was negative at that time. Patient doesn't as much of my questions. Patient also has elevated serum creatinine 1.539 probably because of intr avascular depletion and GI bleed and patient was started on IV fluids for that Eliquis will be held. Review of Systems Unable to obtain Past Medical History Past Medical History: Dementia, Diabetes Mellitus, GERD/Reflux, Hearing Disorder / Deafness, Hyperlipidemia, Hypertension, Memory Impairment, Osteoarthritis (OA) Additional Past Medical History / Comment(s): GLAUCOMA, Nov- per took pt off metformin because lab values were good and such drastic weight loss, incontinence of urine/stool no control, difficulty swallowing- has been choking on pills History of Any Multi-Drug Resistant Organisms: None Reported Past Surgical History: Hernia Repair Additional Past Surgical History / Comment(s): SURGERY FOR GLAUCOMA- BILATERAL EYES , BILATERAL INGUINAL HERNIA SURGERY, KIDNEY SURGERY-CYST REMOVED , adrenal gland removed Past Anesthesia/Blood Transfusion Reactions: No Reported Reaction Past Psychological History: Anxiety, Depression Smoking Status: Former smoker Past Alcohol Use History: None Reported Additional Past Alcohol Use History / Comment(s): STARTED SMOKING AT AGE 18 QUIT AGE 19 SMOKED 1/2PPD OR LESS Past Drug Use History: None Reported - Past Family History Mother Family Medical History: No Reported History Medications and Allergies Home Medications Medication Instructions Recorded Confirmed Type Atorvastatin [Lipitor] 40 mg PO HS 03/26/19 04/30/19 History Folic Acid 0.4 mg PO DAILY 03/26/19 04/30/19 History Magnesium Oxide [Mag-Ox] 250 mg PO BID 03/26/19 04/30/19 History Megestrol [Megace] 40 mg PO DAILY 03/26/19 04/30/19 History Memantine [Namenda] 10 mg PO HS@199903/26/19 04/30/19 History Niacin [Niaspan] 500 mg PO DAILY 03/26/19 04/30/19 History [place]-3 Fatty Acids/Fish Oil [Fish 1 cap PO DAILY 03/26/19 04/30/19 History Oil 1,000 mg Softgel] Apixaban [Eliquis] 5 mg PO BID 04/30/19 04/30/19 History LORazepam [Ativan] 0.5 mg PO Q6HR PRN 04/30/19 04/30/19 History LORazepam [Ativan] 1 mg IM Q8HR PRN 04/30/19 04/30/19 History Omeprazole 20 mg PO DAILY 04/30/19 04/30/19 History Allergies Allergy/AdvReac Type Severity Reaction Status Date / Time No Known Allergies Allergy Verified 04/30/19 08:00 Physical Exam Vitals: Vital Signs Temp Pulse Pulse Resp BP BP Pulse Ox 04/30/19 12:07 98.3 F 83 16 137/86 04/30/19 07:33 97.6 F 77 15 131/73 100 04/30/19 04:53 97.6 F 79 16 137/84 100 04/30/19 03:58 89 17 138/81 100 04/30/19 03:04 98.2 F 75 18 137/81 100 04/30/19 03:00 86 18 137/81 98 Intake and Output 04/29/19 04/30/19 04/30/19 22:59 06:59 14:59 Intake Total 0 0 Balance 0 0 Intake: Oral 0 Blood Product 0 Rc As-1 Unit 0 [id number] Other: Weight 55.2 kg PHYSICAL EXAMINATION: GENERAL: Patient is drowsy sleepy as he received Ativan which will will be discontinued. HEENT: Pupils are round and equally reacting to light. EOMI. No scleral icterus. Does have conjunctival pallor. Normocephalic, atraumatic. No pharyngeal erythema. No thyromegaly. CARDIOVASCULAR: S1 and S2 present. No murmurs, rubs, or gallops. PULMONARY: Chest is clear to auscultation, no wheezing or crackles. ABDOMEN: Soft, nontender, nondistended, normoactive bowel sounds. No palpable organomegaly. MUSCULOSKELETAL: No joint swelling or deformity. EXTREMITIES: No cyanosis, clubbing, or pedal edema. NEUROLOGICAL: Unable to assess SKIN: No rashes. Results CBC & Chem 7: 04/30/19 02:57 04/30/19 02:57 Labs: Abnormal Lab Results - Last 24 Hours (Table) 04/30/19 04/30/19 04/30/19 Range/Units 02:57 02:57 02:57 WBC 2.5 L (3.8-10.6) k/uL RBC 2.19 L (4.30-5.90) m/uL Hgb 6.9 L* D (13.0-17.5) gm/dL Hct 20.0 L (39.0-53.0) % RDW 15.7 H (11.5-15.5) % Plt Count 81 L (150-450) k/uL Lymphocytes # 0.8 L (1.0-4.8) k/uL PT 12.6 H (9.0-12.0) sec INR 1.2 H (<1.2) Chloride 115 H (98-107) mmol/L Carbon Dioxide 21 L (22-30) mmol/L BUN 29 H (9-20) mg/dL Creatinine 1.39 H (0.66-1.25) mg/dL Glucose 112 H (74-99) mg/dL Total Protein 5.4 L (6.3-8.2) g/dL Albumin 3.2 L (3.5-5.0) g/dL Crossmatch 04/30/19 Range/Units 04:05 WBC (3.8-10.6) k/uL RBC (4.30-5.90) m/uL Hgb (13.0-17.5) gm/dL Hct (39.0-53.0) % RDW (11.5-15.5) % Plt Count (150-450) k/uL Lymphocytes # (1.0-4.8) k/uL PT (9.0-12.0) sec INR (<1.2) Chloride (98-107) mmol/L Carbon Dioxide (22-30) mmol/L BUN (9-20) mg/dL Creatinine (0.66-1.25) mg/dL Glucose (74-99) mg/dL Total Protein (6.3-8.2) g/dL Albumin (3.5-5.0) g/dL Crossmatch See Detail Thrombosis Risk Factor Assmnt - Choose All That Apply Each Risk Factor Represents 2 Points: Age 61-74 years Thrombosis Risk Factor Assessment Total Risk Factor Score: 2 Thrombosis Risk Factor Assessment Level: Low Risk Assessment and Plan Plan: -Acute upper GI bleed will need upper GI endoscopy anti-coagulation will be held patient may have peptic ulcer disease and anticoagulation led to his GI bleed. Depending on the upper GI endoscopy results will decide on anti-correlation patient is a recent pulmonary embolism. -Recent PE in the right sided pulmonary vasculature. Have an acute blood loss anemia from GI bleed -Acute renal failure prerenal azotemia patient was started on IV fluids -Advanced Alzheimer's dementia -Hyperlipidemia -Hypertension DVT prophylaxis SCDs
[2019-04-30] MEDS: SODIUM CHLORIDE 0.9% 1,000 ML IV SCH ×2 (15:22→21:35)
[2019-04-30] MEDS: PANTOPRAZOLE 40 MG/10 ML VIAL IV SCH (20:43)
[2019-04-30] MEDS: MEMANTINE 10 MG TAB PO SCH (20:43)
[2019-04-30] MEDS: MAGNESIUM OXIDE 400 MG TAB PO SCH (21:27)
[2019-04-30] MEDS: ATORVASTATIN 40 MG TAB PO SCH (21:27)
[2019-05-01] MEDS: SODIUM CHLORIDE 0.9% 1,000 ML IV SCH ×2 (07:35→16:39)
[2019-05-01 08:22] LABS: Basophils % (A) 0 %; Eosinophils # (A) 0.1 k/uL (0-0.7); Eosinophils % (A) 3 %; HCT 29.3 % (39.0-53.0); Lymphocytes # (A) 0.9 k/uL (1.0-4.8); Lymphocytes % (A) 25 %; MCHC 32.5 g/dL (31.0-37.0); MCV 92.4 fL (80.0-100.0); Mean Platelet Volume 8.3; Monocytes # (A) 0.2 k/uL (0-1.0); Monocytes % (A) 5 %; Neutrophils # (A) 2.4 k/uL (1.3-7.7); Neutrophils % (A) 66 %; Platelet Count 100 k/uL (150-450); Poikilocytosis Slight; RBC 3.18 m/uL (4.30-5.90); WBC 3.7 k/uL (3.8-10.6)
[2019-05-01 08:29] LABS: Albumin 3.4 g/dL (3.5-5.0); Calcium 8.4 mg/dL (8.4-10.2); HGB 9.5 gm/dL (13.0-17.5); Potassium 3.3 mmol/L (3.5-5.1); Total Bilirubin 1.1 mg/dL (0.2-1.3); Total Protein 5.7 g/dL (6.3-8.2)
[2019-05-01] MEDS: PANTOPRAZOLE 40 MG/10 ML VIAL IV SCH ×2 (10:05→21:20)
[2019-05-01] MEDS: MEGESTROL 40 MG TAB PO SCH (10:05)
[2019-05-01] MEDS: FOLIC ACID 1 MG TAB PO SCH (10:05)
[2019-05-01] MEDS: MAGNESIUM OXIDE 400 MG TAB PO SCH ×2 (10:05→21:20)
[2019-05-01] MEDS ORDERED: POTASSIUM CHLORIDE ER 20 MEQ TAB.ER PO STA (11:01)
--- NOTE | 2019-05-01 14:38 | P.PN ---
Subjective 71-year-old admitted the with the upper GI bleed patient aberrantly has back disease in the past and the patient was started on Eliquis recently for his pulmonary embolism in the right side. Patient doesn't have any more GI bleed continue to hold off anti-correlation patient will undergo upper GI endoscopy patient is on Protonix at this time. Review of systems are all negative but not a reliable historian patient is very good at confabulating Objective - Vital Signs Vital signs: Vital Signs Temp 98 F 05/01/19 07:00 Pulse 110 H 05/01/19 07:00 Resp 16 05/01/19 07:00 BP 159/76 05/01/19 07:00 Pulse Ox 95 05/01/19 07:00 Intake & Output 04/30/19 05/01/19 05/01/19 18:59 06:59 18:59 Intake Total 1450 1040 Balance 1450 1040 Intake: Intake, IV Titration 100 800 Amount Sodium Chloride 0.9% 1, 100 800 000 ml @ 100 mls/hr IV . Q10H KYMBERLY Rx#:[id number] Oral 480 240 Blood Product 870 As-1 Unit 310 [id number] Rc As-1 Unit 310 [id number] Other: # Voids 2 1 2 # Bowel Movements 1 - Exam PHYSICAL EXAMINATION: GENERAL: Patient is drowsy sleepy as he received Ativan which will will be discontinued. HEENT: Pupils are round and equally reacting to light. EOMI. No scleral icterus. Does have conjunctival pallor. Normocephalic, atraumatic. No pharyngeal erythema. No thyromegaly. CARDIOVASCULAR: S1 and S2 present. No murmurs, rubs, or gallops. PULMONARY: Chest is clear to auscultation, no wheezing or crackles. ABDOMEN: Soft, nontender, nondistended, normoactive bowel sounds. No palpable organomegaly. MUSCULOSKELETAL: No joint swelling or deformity. EXTREMITIES: No cyanosis, clubbing, or pedal edema. NEUROLOGICAL: Unable to assess SKIN: No rashes. - Labs CBC & Chem 7: 05/01/19 07:37 05/01/19 07:37 Labs: Abnormal Lab Results - Last 24 Hours (Table) 04/30/19 05/01/19 05/01/19 Range/Units 04:05 07:07 07:37 WBC 3.7 L (3.8-10.6) k/uL RBC 3.18 L (4.30-5.90) m/uL Hgb 9.5 L D (13.0-17.5) gm/dL Hct 29.3 L (39.0-53.0) % Plt Count 100 L (150-450) k/uL Lymphocytes # 0.9 L (1.0-4.8) k/uL Potassium (3.5-5.1) mmol/L Chloride (98-107) mmol/L Carbon Dioxide (22-30) mmol/L BUN (9-20) mg/dL Creatinine (0.66-1.25) mg/dL Glucose (74-99) mg/dL Magnesium 1.4 L (1.6-2.3) mg/dL Total Protein (6.3-8.2) g/dL Albumin (3.5-5.0) g/dL Crossmatch See Detail 05/01/19 Range/Units 07:37 WBC (3.8-10.6) k/uL RBC (4.30-5.90) m/uL Hgb (13.0-17.5) gm/dL Hct (39.0-53.0) % Plt Count (150-450) k/uL Lymphocytes # (1.0-4.8) k/uL Potassium 3.3 L (3.5-5.1) mmol/L Chloride 115 H (98-107) mmol/L Carbon Dioxide 20 L (22-30) mmol/L BUN 21 H (9-20) mg/dL Creatinine 1.59 H (0.66-1.25) mg/dL Glucose 126 H (74-99) mg/dL Magnesium (1.6-2.3) mg/dL Total Protein 5.7 L (6.3-8.2) g/dL Albumin 3.4 L (3.5-5.0) g/dL Crossmatch Assessment and Plan Plan: -Acute upper GI bleed will need upper GI endoscopy anti-coagulation will be held patient may have peptic ulcer disease and anticoagulation led to his GI bleed. Depending on the upper GI endoscopy results will decide on anti-correlation patient is a recent pulmonary embolism. Patient had history of esophageal varices in the past -Recent PE in the right sided pulmonary vasculature. Have an acute blood loss anemia from GI bleed -Acute renal failure prerenal azotemia patient was started on IV fluids -Advanced Alzheimer's dementia -Hyperlipidemia -Hypertension DVT prophylaxis SCDs
[2019-05-01] MEDS ORDERED: PROPOFOL 10 MG/ML 20 ML VIAL IV ONE (15:24)
[2019-05-01] MEDS ORDERED: LIDOCAINE 1% INJ 10MG/ML (20 ML MDV) ONE (15:24)
[2019-05-01] MEDS ORDERED: IV FLUID CONTINUATION 1,000 ML IV ONE ×2 (15:28)
--- NOTE | 2019-05-01 16:11 | P.PCN ---
Date of Procedure: 05/01/19 Procedure(s) Performed: Procedure: Esophagogastroduodenoscopy. Preoperative diagnosis: 1. Anemia and suspected upper GI bleeding. 2. Patient had gastric varices noted in February of this year recent diagnosis of pulmonary embolism. Postoperative diagnosis: 1. Gastric varices in the fundus with a medium sized clot adherent to one of the varices. 2. There is no spontaneous bleeding or blood.. Preparation and sedation: Was provided by anesthesia. Brief clinical history: The patient is a 73-year-old male with profound dementia, recently diagnosed with pulmonary embolism maintained on ELIQUIS, GERD, diabetes mellitus, hypertension, hyperlipidemia. Patient was recently hospitalized for weakness transfer to [facility] and returned with reports of a low hemoglobin as well as black colored bowel movements per shelter staff. Since admission no reports of melanotic bowel movements. Admission hemoglobin 6.9. MCV 91. Platelet 81,000. INR 1.2. BUN 29. Creatinine 1.3. White count 2.5. LFTs within normal limits. Review of previous medical records reveals hemoglobin was 9.4 5 days prior and 13.6 on April 22. According to his spouse no history of peptic ulcer disease GI bleeds. No reports of abdominal pain gross hematemesis coffee-ground emesis or hematochezia. Patient underwent screening outpatient EGD and colonoscopy 03/27/[address] Brewster with findings of gastric varices no evidence of esophageal varices. Colonoscopy within normal limits and evidence of internal hemorrhoids. Follow-up CT abdomen and pelvis 10 days later redemonstrated gastric varices no other acute intra-abdominal pathology identified. No obvious radiographic evidence of liver disease and/or cirrhosis. No history of known liver disorders or EtOH abuse. Patient has been progressively losing weight unintentionally over last 6 months estimates about 40 pounds. Appetite fluctuates up spouse says it's been fairly healthy lately. Last dose of ELIQUIS 04/29/2019. Although details are summarized in the history and physical and dictated consultations and progress notes. This evaluation is to assess for a source of bleeding and guide his care. Procedure: With the patient on his left lateral decubitus position and after informed consent and adequate sedation, I passed the Olympus-GIF H190 video upp er endoscope through the cricopharyngeus down the esophagus. The esophagus appeared healthy with no obvious esophagitis, mucosal tears or esophageal varices or any evidence of active bleeding. The endoscope was then passed into the stomach which was insufflated with air and inspected in detail including the retroflex view in the cardia. There was no active bleeding or any liquid blood in the stomach. Gastric varices were noted in the fundus as previously described. There was a medium-sized clot adherent to one of the varices in the gastric fundus most likely represening a side of recent bleeding and profound anemia. No oozing of blood. Pyloric channel, duodenal bulb, post bulbar area and descending duodenum appeared within normal limits. There were no ulcers or bleeding. No biopsies or other interventions was indicated and the endoscope was withdrawn. The patient tolerated the procedure well. Plan: I summarized the findings to the patient and his family. I am recommending no anticoagulation at this time, and to keep him nothing by mouth except for ice chips. Consider transfer to a tertiary facility because of the gastric varices and the risk of bleeding whether or not he is anticoagulated again at this time. I will discuss with you and follow with you with interest.
[2019-05-01] MEDS: MEMANTINE 10 MG TAB PO SCH (21:20)
[2019-05-01] MEDS: ATORVASTATIN 40 MG TAB PO SCH (21:20)
[2019-05-02] MEDS: SODIUM CHLORIDE 0.9% 1,000 ML IV SCH ×2 (05:19→14:19)
[2019-05-02] MEDS: MAGNESIUM OXIDE 400 MG TAB PO SCH (07:27)
[2019-05-02] MEDS: FOLIC ACID 1 MG TAB PO SCH (07:27)
[2019-05-02] MEDS: MEGESTROL 40 MG TAB PO SCH (07:27)
[2019-05-02] MEDS: PANTOPRAZOLE 40 MG/10 ML VIAL IV SCH (07:27)
[2019-05-02 07:34] LABS: HCT 25.8 % (39.0-53.0); MCHC 34.9 g/dL (31.0-37.0); MCV 91.8 fL (80.0-100.0); Mean Platelet Volume 8.7; Poikilocytosis Slight; RBC 2.81 m/uL (4.30-5.90); RDW 15.8 % (11.5-15.5); WBC 3.3 k/uL (3.8-10.6)
[2019-05-02 07:52] LABS: Platelet Count 83 k/uL (150-450)
[2019-05-02 07:56] LABS: Calcium 7.6 mg/dL (8.4-10.2); Potassium 3.3 mmol/L (3.5-5.1)
[2019-05-02] MEDS: POTASSIUM CHLORIDE 20 MEQ in WATER FOR INJECTION 1 100ML.BAG IVPB SCH ×3 (08:35→12:53)
[2019-05-02 08:42] VITALS: RESP 16
--- NOTE | 2019-05-02 13:25 | P.PN ---
Subjective Progress Note Date: 05/02/19 Principal diagnosis: Acute GI bleeding, acute blood loss anemia Patient seen lying in bed denying any nausea, vomiting or hematemesis. He had 2 dark bowel movements last night but no bowel movements since that time. No abdominal pain reported. Currently tolerating ice chips. Objective - Vital Signs Vital signs: Vital Signs Temp 97.4 F L 05/02/19 07:46 Pulse 87 05/02/19 07:46 Resp 16 05/02/19 07:46 BP 165/74 05/02/19 07:46 Pulse Ox 100 05/02/19 07:46 Intake & Output 05/01/19 05/02/19 05/02/19 18:59 06:59 18:59 Intake Total 1440 1300 Balance 1440 1300 Weight 55.2 kg Intake: IV 400 Intake, IV Titration 800 1300 Amount Sodium Chloride 0.9% 1, 800 1300 000 ml @ 100 mls/hr IV . Q10H KYMBERLY Rx#:[id number] Oral 240 Other: Voiding Method Toilet Incontinent # Voids 2 2 # Bowel Movements 1 - Exam On physical examination, patient appears comfortable in no apparent distress. HEAD: Normocephalic, atraumatic. EYES: No scleral icterus. No conjunctival injection. MOUTH: No lesions, tongue midline. NECK: Trachea midline, no gross abnormalities. CHEST: Decreased air entry bilaterally. HEART: S1-S2 appreciated. ABDOMEN: Soft. Bowel sounds are positive. No organomegaly. No guarding or rigidity. EXTREMITIES: No pedal edema. SKIN: No rashes, no jaundice. NEUROLOGIC: Alert and oriented x3. No focal deficits. - Labs CBC & Chem 7: 05/02/19 07:08 05/02/19 07:08 Labs: Abnormal Lab Results - Last 24 Hours (Table) 05/02/19 05/02/19 Range/Units 07:08 07:08 WBC 3.3 L (3.8-10.6) k/uL RBC 2.81 L (4.30-5.90) m/uL Hgb 9.0 L (13.0-17.5) gm/dL Hct 25.8 L (39.0-53.0) % RDW 15.8 H (11.5-15.5) % Plt Count 83 L (150-450) k/uL Potassium 3.3 L (3.5-5.1) mmol/L Chloride 118 H (98-107) mmol/L Carbon Dioxide 17 L (22-30) mmol/L Creatinine 1.37 H (0.66-1.25) mg/dL Calcium 7.6 L (8.4-10.2) mg/dL Assessment and Plan (1) Acute GI bleeding Narrative/Plan: 73-year-old male with a medical history significant for advanced to mention with recent pulmonary embolism maintained on anticoagulation therapy who presented to the hospital from [facility] due to anemia. Reports from [facility] were that the patient was having dark melanotic stools prior to presentation. He previously underwent collected EGD and colonoscopy 1 month ago with findings of gastric varices and normal colon. Yesterday he was taken for repeat EGD with findings of a isolated gastric varices in the fundus of the stomach with a adherent clot. No active bleeding was noted at that time. Current Visit: Yes Status: Acute Code(s): K92.2 - GASTROINTESTINAL HEMORRHAGE, UNSPECIFIED SNOMED Code(s): 49305025 (2) Acute blood loss anemia Current Visit: Yes Status: Acute Code(s): D62 - ACUTE POSTHEMORRHAGIC ANEMIA SNOMED Code(s): 836871605 (3) Gastric varices Current Visit: Yes Status: Acute Code(s): I86.4 - GASTRIC VARICES SNOMED Code(s): 31785115 (4) Pulmonary embolism Current Visit: Yes Status: Acute Code(s): I26.99 - OTHER PULMONARY EMBOLISM WITHOUT ACUTE COR PULMONALE SNOMED Code(s): 41033083 Plan: Supportive care Continue to monitor hemoglobin and hematocrit and transfuse as needed Continue to monitor for signs or symptoms of GI bleeding Continue Protonix 40 mg twice daily Okay for liquids at this time Continue to hold anticoagulation at this time Would recommend referral to tertiary center at which time patient can be considered for further therapy given recent diagnosis of pulmonary embolism with consideration for endoscopic therapy versus TIPS or surgical shunt Thank you for allowing us to participate in the care of the patient we will continue to follow
--- NOTE | 2019-05-02 15:39 | P.DS ---
Providers Date of admission: 04/30/19 03:26 Attending physician: Mauricio Arango MD Consults: 04/30/19 03:08 Consult Physician Urgent Consulting Provider: Harpreet Sharp Consult Reason/Comments: upper GIB, acute anemia Do you want consulting provider notified?: Yes, Notify in am Primary care physician: Souleymane [facility] Course: 71-year-old male was admitted for upper GI bleed found have variceal bleed in the endoscopy. Patient was recently discharged from the hospital after he was diagnosed with pulmonary embolism on the right sided pulmonary vasculature and was subsequently discharged on Eliquis came back with GI bleed. Patient does not have any history of cirrhosis no evidence of splenic vein thrombosis unsure of the etiology of esophageal varices. Patient had an upper GI endoscopy by gastroenterology in the recommending transfer to higher level facility for further management for esophageal varices condition regarding restarting on anticoagulation need to be done in coordination with the gastroenterology team at the higher level facility. Case was discussed with the hospitalist at [facility] who accepted the patient. Patient will be transferred to [facility] in [place]. During his last hospitalization 2 days ago patient was treated for hypocalcemia with serum calcium going up to 18 although there is no evidence of a cancer. Patient did have weight loss from not eating well from his advanced dementia appears to have dementia of Alzheimer's type. Patient was extensively evaluated for multiple myeloma, CAT scan of the chest was obtained as well which did not show any masses CAT scan of the head did not show any malignant lesions abdominal CAT scan was done few days before the previous hospitalization which did not show any mass lesions or any cancerous lesions. Patient does not have any clinical signs or symptoms of cirrhosis. A radiological imaging doesn't support cirrhosis either. Patient admits baseline is alert oriented 0 but pleasant. PHYSICAL EXAMINATION: GENERAL: Patient is alert oriented 0 HEENT: Pupils are round and equally reacting to light. EOMI. No scleral icterus. Does have conjunctival pallor. Normocephalic, atraumatic. No pharyngeal erythema. No thyromegaly. CARDIOVASCULAR: S1 and S2 present. No murmurs, rubs, or gallops. PULMONARY: Chest is clear to auscultation, no wheezing or crackles. ABDOMEN: Soft, nontender, nondistended, normoactive bowel sounds. No palpable organomegaly. MUSCULOSKELETAL: No joint swelling or deformity. EXTREMITIES: No cyanosis, clubbing, or pedal edema. NEUROLOGICAL: Unable to assess SKIN: No rashes. Assessment and Plan Plan: -Acute upper GI bleed upper GI endoscopy results as mentioned above and the anti-coagulation is on hold -Recent PE in the right sided pulmonary vasculature. - acute blood loss anemia from GI bleed -Acute renal failure prerenal azotemia patient denied a GI bleed, minimal improvement in serum creatinine with IV fluids came down from 1.5-1.37 baseline creatinine is normal -Advanced Alzheimer's dementia -Hyperlipidemia -Hypertension Patient Condition at Discharge: Serious Plan - Discharge Summary New Discharge Prescriptions: No Action Memantine [Namenda] 10 mg PO HS@1999 Atorvastatin [Lipitor] 40 mg PO HS Megestrol [Megace] 40 mg PO DAILY Magnesium Oxide [Mag-Ox] 250 mg PO BID Niacin [Niaspan] 500 mg PO DAILY [place]-3 Fatty Acids/Fish Oil [Fish Oil 1,000 mg Softgel] 1 cap PO DAILY Folic Acid 0.4 mg PO DAILY Omeprazole 20 mg PO DAILY LORazepam [Ativan] 0.5 mg PO Q6HR PRN PRN Reason: Anxiety LORazepam [Ativan] 1 mg IM Q8HR PRN PRN Reason: Anxiety Apixaban [Eliquis] 5 mg PO BID Discharge Medication List Atorvastatin [Lipitor] 40 mg PO HS 03/26/19 [History] Folic Acid 0.4 mg PO DAILY 03/26/19 [History] Magnesium Oxide [Mag-Ox] 250 mg PO BID 03/26/19 [History] Megestrol [Megace] 40 mg PO DAILY 03/26/19 [History] Memantine [Namenda] 10 mg PO HS@199903/26/19 [History] Niacin [Niaspan] 500 mg PO DAILY 03/26/19 [History] [place]-3 Fatty Acids/Fish Oil [Fish Oil 1,000 mg Softgel] 1 cap PO DAILY 03/26/19 [History] Apixaban [Eliquis] 5 mg PO BID 04/30/19 [History] LORazepam [Ativan] 0.5 mg PO Q6HR PRN 04/30/19 [History] LORazepam [Ativan] 1 mg IM Q8HR PRN 04/30/19 [History] Omeprazole 20 mg PO DAILY 04/30/19 [History] Follow up Appointment(s)/Referral(s): Souleymane Haile MD [Primary Care Provider] - 1-2 days
[2019-05-02 16:29] VITALS: BP 143/82; PULSE 75; TEMP 97.8
--- NOTE | 2019-05-05 08:12 | CDI ---
Documentation Clarification Form Date: 05/05/19 From: Lamar Win Phone: If questions call Jeannette Dillard @ [phone], Hours-8:30 am & 5 pm M- F Admit Date: 04/30/2019 3:26:00 AM Patient Name: Jewel Price Visit Number: [id number] Discharge Date: 05/02/2019 6:39:00 PM ATTENTION: The Clinical Documentation Specialists (CDI) and [facility] Coding Staff appreciate your assistance in clarifying documentation. Please respond to the clarification below the line at the bottom and electronically sign. The CDI & [facility] Coding staff will review the response and follow-up if needed. Please note: Queries are made part of the Legal Health Record. If you have any questions, please contact the author of this message via ITS. Dr. Matt Kaiser Per 05/01 PN patient recently had pulmonary embolism in right side. History/Risk Factors: multiple myeloma, gastric varices, GI bleeding, cachexia, ABLA No xrays Treatment: Eliquis In your professional opinion, can you please clarify the acuitiy of the pulmonary embolism? Acute pulmonary embolism Chronic pulmonary embolism History of pulmonary embolism Other, please specify Unable to determine Acute pulmonary embolism MTDD
--- NOTE | 2019-05-05 08:23 | CDI ---
Documentation Clarification Form Date: 05/05/19 From: Lamar Win Phone: If questions call Jeannette Dillard @ [phone], Hours-8:30 am & 5 pm M- F Admit Date: 04/30/2019 3:26:00 AM Patient Name: Jewel Price Visit Number: [id number] Discharge Date: 05/02/2019 6:39:00 PM ATTENTION: The Clinical Documentation Specialists (CDI) and [facility] Coding Staff appreciate your assistance in clarifying documentation. Please respond to the clarification below the line at the bottom and electronically sign. The CDI & [facility] Coding staff will review the response and follow-up if needed. Please note: Queries are made part of the Legal Health Record. If you have any questions, please contact the author of this message via ITS. Dr. Matt Kaiser Very malnourished, cachectic appearing, pale with conjunctival pallor documented in ED Note. History/Risk Factors: multiple myeloma, pulmonary embolism, gastric varix, GI bleeding, dementia Labs: Albumin/Total Protein: 3.2/5.4 Current BMI: 19.1 Treatment: Folic acid, Mag-ox, Megace, texture-modified diet, carbohydrate- modified diet, glucerena TID Dietary Consult: malnutrition, severe protein-calorie malnutrition in the context of chronic illness In your professional opinion, can you please clarify if these findings signify one of the following conditions? Mild Protein-Calorie Malnutrition Moderate Protein-Calorie Malnutrition Severe Protein-Calorie Malnutrition Malnutrition, unspecified Malnutrition following GI surgery Other condition, please specify Unable to determine Moderate Protein-Calorie Malnutrition MTDD
== END 2019-05-02 18:39 | disposition short-term general hospital (02) | DRG 299 ==
LOC: EC 02:50 → 4SSUR 03:26
PROVIDERS: ADMIT Internal Medicine; ATTEND Internal Medicine
PROC: 30233N1 Transfusion of Nonautologous Red Blood Cells into Peripheral Vein, Percutaneous Approach (ICD-10-PCS; principal; 2019-04-30)
PROC: 0DJ08ZZ Inspection of Upper Intestinal Tract, Via Natural or Artificial Opening Endoscopic (ICD-10-PCS; 2019-05-01)
DX: I86.4 Gastric varices (principal); I26.99 Other pulmonary embolism without acute cor pulmonale; R64 Cachexia; Z68.1 Body mass index [BMI] 19.9 or less, adult; D61.818 Other pancytopenia; E44.0 Moderate protein-calorie malnutrition; K92.1 Melena; D62 Acute posthemorrhagic anemia; N17.9 Acute kidney failure, unspecified; C90.00 Multiple myeloma not having achieved remission; Z66 Do not resuscitate; R15.9 Full incontinence of feces; E83.51 Hypocalcemia; E86.9 Volume depletion, unspecified; G30.9 Alzheimer's disease, unspecified; E11.9 Type 2 diabetes mellitus without complications; F02.80 Dementia in other diseases classified elsewhere, unspecified severity, without behavioral disturbance, psychotic disturbance, mood disturbance, and anxiety; R32 Unspecified urinary incontinence; E78.5 Hyperlipidemia, unspecified; K21.9 Gastro-esophageal reflux disease without esophagitis; I10 Essential (primary) hypertension; K64.8 Other hemorrhoids; F32.9 Major depressive disorder, single episode, unspecified; F41.9 Anxiety disorder, unspecified; H91.90 Unspecified hearing loss, unspecified ear; M19.90 Unspecified osteoarthritis, unspecified site; H40.9 Unspecified glaucoma; Z79.01 Long term (current) use of anticoagulants; Z79.818 Long term (current) use of other agents affecting estrogen receptors and estrogen levels; Z79.899 Other long term (current) drug therapy; Z87.891 Personal history of nicotine dependence; Z98.890 Other specified postprocedural states; Z71.3 Dietary counseling and surveillance
CPT/HCPCS: 36415; 43235; 80048; 80053; 82272; 83735; 84132; 85025; 85027; 85610; 85730; 86850; 86870; 86880; 86900; 86901; 86920; 96374; 99285

== ENCOUNTER 2019-05-28 21:07 | Emergency (ER) | payer MEDICARE ==
[2019-05-28 21:33] LABS: Glucose,Whole Blood 138 mg/dL (75-99)
--- NOTE | 2019-05-28 21:43 | ED ---
Altered Mental Status HPI - General Chief Complaint: Altered Mental Status Stated Complaint: Confusion Time Seen by Provider: 05/28/19 21:29 Source: patient, family Mode of arrival: ambulatory Limitations: altered mental status (There is some underlying dementia) - History of Present Illness Initial Comments: This patient is a 74-year-old man with underlying dementia, who is brought here by family to have evaluation for more fatigue and also some generalized confusion. They're concerned because the patient did recently have a Kartik filter placed at [facility]. Following the procedure that the patient did have some postoperative hemorrhage and they are concerned that his blood counts may be getting low again. He did have anemia and at one point required transfusion. The patient denies complaints. He is not having any pain or dyspnea. MD Complaint: confusion, weakness Onset/Timin -: days(s) Severity: moderate Consistency of Symptoms: getting worse Context: other Associated Symptoms: denies other symptoms - Related Data Home Medications Medication Instructions Recorded Confirmed Atorvastatin [Lipitor] 20 mg PO HS 03/26/19 05/28/19 Folic Acid 0.4 mg PO DAILY 03/26/19 05/28/19 Magnesium Oxide [Mag-Ox] 250 mg PO BID 03/26/19 05/28/19 Memantine [Namenda] 10 mg PO DAILY 03/26/19 05/28/19 Niacin [Niaspan] 500 mg PO HS 03/26/19 05/28/19 Megestrol Acetate [Megace] 120 mg PO DAILY 05/28/19 05/28/19 Pantoprazole Sodium [Protonix] 40 mg PO BID 05/28/19 05/28/19 Allergies Allergy/AdvReac Type Severity Reaction Status Date / Time No Known Allergies Allergy Verified 05/28/19 21:56 Review of Systems ROS Statement: Those systems with pertinent positive or pertinent negative responses have been documented in the HPI. ROS Other: All systems not noted in ROS Statement are negative. Limitations: ROS unobtainable due to patients medical condition (ROS limited due to underlying dementia) Constitutional: Reports: weakness (June) Respiratory: Denies: cough, dyspnea Cardiovascular: Denies: chest pain Gastrointestinal: Denies: abdominal pain, vomiting Genitourinary: Denies: dysuria Musculoskeletal: Denies: back pain Neurological: Reports: as per HPI, confusion. Denies: headache Past Medical History Past Medical History: Dementia, Diabetes Mellitus, GERD/Reflux, GI Bleed, Hearing Disorder / Deafness, Hyperlipidemia, Hypertension, Memory Impairment, Osteoarthritis (OA) Additional Past Medical History / Comment(s): GLAUCOMA, Alex- per took pt off metformin because lab values were good and such drastic weight loss, incontinence of urine/stool no control, difficulty swallowing- has been choking on pills History of Any Multi-Drug Resistant Organisms: None Reported Past Surgical History: Hernia Repair Additional Past Surgical History / Comment(s): SURGERY FOR GLAUCOMA- BILATERAL EYES , BILATERAL INGUINAL HERNIA SURGERY, KIDNEY SURGERY-CYST REMOVED , adrenal gland removed, IVF placements for three blood clots PE and DVT, splenic vein clot Past Anesthesia/Blood Transfusion Reactions: No Reported Reaction Past Psychological History: Anxiety, Depression Smoking Status: Former smoker Past Alcohol Use History: None Reported Past Drug Use History: None Reported - Past Family History Mother Family Medical History: No Reported History General Exam Limitations: no limitations General appearance: alert, in no apparent distress Head exam: Present: atraumatic, normocephalic Eye exam: Present: normal appearance. Absent: scleral icterus, conjunctival injection ENT exam: Present: mucous membranes dry Neck exam: Present: normal inspection Respiratory exam: Present: normal lung sounds bilaterally. Absent: respiratory distress, wheezes, rales, rhonchi, stridor, accessory muscle use, decreased breath sounds Cardiovascular Exam: Present: regular rate, normal rhythm, normal heart sounds GI/Abdominal exam: Present: soft. Absent: distended, tenderness, guarding, rebound, mass Extremities exam: Present: normal inspection, normal capillary refill. Absent: pedal edema, calf tenderness Back exam: Present: normal inspection Neurological exam: Present: alert, CN II-XII intact. Absent: oriented X3 (Oriented to person and place, not date), motor sensory deficit Skin exam: Present: warm, dry, intact, normal color. Absent: rash Course Vital Signs 05/28/19 05/28/19 05/28/19 21:20 22:39 23:04 Temperature 97.4 F L 98.1 F Pulse Rate 108 H 87 90 Respiratory 22 18 18 Rate Blood Pressure 177/81 160/92 151/105 O2 Sat by Pulse 98 100 100 Oximetry 05/28/19 23:48 Temperature Pulse Rate 89 Respiratory 18 Rate Blood Pressure 154/88 O2 Sat by Pulse 100 Oximetry Medical Decision Making - Medical Decision Making Patient 74-year-old man brought for evaluation of some increasing generalized weakness and also confusion. The patient's calcium is elevated. He was recent ly found to have this and had started of a workup with nephrology. At does not appear that the definite etiology of this has been found. I went to discuss results with patient's family and he was given some IV fluid. Following this, does appear the patient was developing some sundowning. I discussed admitting the patient for further workup, with the patient's family would prefer to take him home as they believe that he will improve with the milieu effect area they understand that the hyperkalemia is a problem and contributing to his symptoms and they will follow to have further evaluation of this. - Lab Data Result diagrams: 05/28/19 21:45 05/28/19 21:45 Lab Results 05/28/19 05/28/19 05/28/19 Range/Units 21:32 21:45 21:45 WBC (3.8-10.6) k/uL RBC (4.30-5.90) m/uL Hgb (13.0-17.5) gm/dL Hct (39.0-53.0) % MCV (80.0-100.0) fL MCH (25.0-35.0) pg MCHC (31.0-37.0) g/dL RDW (11.5-15.5) % Plt Count (150-450) k/uL Neutrophils % % Lymphocytes % % Monocytes % % Eosinophils % % Basophils % % Neutrophils # (1.3-7.7) k/uL Lymphocytes # (1.0-4.8) k/uL Monocytes # (0-1.0) k/uL Eosinophils # (0-0.7) k/uL Basophils # (0-0.2) k/uL Poikilocytosis Sodium 141 (137-145) mmol/L Potassium 4.7 (3.5-5.1) mmol/L Chloride 108 H (98-107) mmol/L Carbon Dioxide 21 L (22-30) mmol/L Anion Gap 12 mmol/L BUN 33 H (9-20) mg/dL Creatinine 1.09 (0.66-1.25) mg/dL Est GFR (CKD-EPI)AfAm 78 (>60 ml/min/1.73 sqM) Est GFR (CKD-EPI)NonAf 67 (>60 ml/min/1.73 sqM) Glucose 136 H (74-99) mg/dL POC Glucose (mg/dL) 138 H (75-99) mg/dL POC Glu Gaming Dealer ID Celena Escobar Plasma Lactic Acid [place] 1.1 (0.7-2.0) mmol/L Calcium 12.2 H (8.4-10.2) mg/dL Magnesium 1.8 (1.6-2.3) mg/dL Total Bilirubin 0.6 (0.2-1.3) mg/dL AST 19 (17-59) U/L ALT 16 L (21-72) U/L Alkaline Phosphatase 66 (38-126) U/L Ammonia <9 (<30) umol/L Troponin I (0.000-0.034) ng/mL Total Protein 7.1 (6.3-8.2) g/dL Albumin 4.4 (3.5-5.0) g/dL Urine Color Urine Appearance (Clear) Urine pH (5.0-8.0) Ur Specific [place] (1.001-1.035) Urine Protein (Negative) Urine Glucose (UA) (Negative) Urine Ketones (Negative) Urine Blood (Negative) Urine Nitrite (Negative) Urine Bilirubin (Negative) Urine Urobilinogen (<2.0) mg/dL Ur Leukocyte Esterase (Negative) Urine RBC (0-5) /hpf Urine WBC (0-5) /hpf Urine Mucus (None) /hpf Stool Occult Blood (Negative) Serum Alcohol <10 mg/dL 05/28/19 05/28/19 05/28/19 Range/Units 21:45 21:45 21:52 WBC 4.3 (3.8-10.6) k/uL RBC 3.49 L (4.30-5.90) m/uL Hgb 9.9 L (13.0-17.5) gm/dL Hct 30.3 L (39.0-53.0) % MCV 87.0 (80.0-100.0) fL MCH 28.4 (25.0-35.0) pg MCHC 32.7 (31.0-37.0) g/dL RDW 14.6 (11.5-15.5) % Plt Count 120 L (150-450) k/uL Neutrophils % 71 % Lymphocytes % 17 % Monocytes % 5 % Eosinophils % 3 % Basophils % 1 % Neutrophils # 3.1 (1.3-7.7) k/uL Lymphocytes # 0.7 L (1.0-4.8) k/uL Monocytes # 0.2 (0-1.0) k/uL Eosinophils # 0.1 (0-0.7) k/uL Basophils # 0.1 (0-0.2) k/uL Poikilocytosis Slight Sodium (137-145) mmol/L Potassium (3.5-5.1) mmol/L Chloride (98-107) mmol/L Carbon Dioxide (22-30) mmol/L Anion Gap mmol/L BUN (9-20) mg/dL Creatinine (0.66-1.25) mg/dL Est GFR (CKD-EPI)AfAm (>60 ml/min/1.73 sqM) Est GFR (CKD-EPI)NonAf (>60 ml/min/1.73 sqM) Glucose (74-99) mg/dL POC Glucose (mg/dL) (75-99) mg/dL POC Glu Gaming Dealer ID Plasma Lactic Acid [place] (0.7-2.0) mmol/L Calcium (8.4-10.2) mg/dL Magnesium (1.6-2.3) mg/dL Total Bilirubin (0.2-1.3) mg/dL AST (17-59) U/L ALT (21-72) U/L Alkaline Phosphatase (38-126) U/L Ammonia (<30) umol/L Troponin I <0.012 (0.000-0.034) ng/mL Total Protein (6.3-8.2) g/dL Albumin (3.5-5.0) g/dL Urine Color Urine Appearance (Clear) Urine pH (5.0-8.0) Ur Specific [place] (1.001-1.035) Urine Protein (Negative) Urine Glucose (UA) (Negative) Urine Ketones (Negative) Urine Blood (Negative) Urine Nitrite (Negative) Urine Bilirubin (Negative) Urine Urobilinogen (<2.0) mg/dL Ur Leukocyte Esterase (Negative) Urine RBC (0-5) /hpf Urine WBC (0-5) /hpf Urine Mucus (None) /hpf Stool Occult Blood Negative (Negative) Serum Alcohol mg/dL 05/28/19 Range/Units 23:04 WBC (3.8-10.6) k/uL RBC (4.30-5.90) m/uL Hgb (13.0-17.5) gm/dL Hct (39.0-53.0) % MCV (80.0-100.0) fL MCH (25.0-35.0) pg MCHC (31.0-37.0) g/dL RDW (11.5-15.5) % Plt Count (150-450) k/uL Neutrophils % % Lymphocytes % % Monocytes % % Eosinophils % % Basophils % % Neutrophils # (1.3-7.7) k/uL Lymphocytes # (1.0-4.8) k/uL Monocytes # (0-1.0) k/uL Eosinophils # (0-0.7) k/uL Basophils # (0-0.2) k/uL Poikilocytosis Sodium (137-145) mmol/L Potassium (3.5-5.1) mmol/L Chloride (98-107) mmol/L Carbon Dioxide (22-30) mmol/L Anion Gap mmol/L BUN (9-20) mg/dL Creatinine (0.66-1.25) mg/dL Est GFR (CKD-EPI)AfAm (>60 ml/min/1.73 sqM) Est GFR (CKD-EPI)NonAf (>60 ml/min/1.73 sqM) Glucose (74-99) mg/dL POC Glucose (mg/dL) (75-99) mg/dL POC Glu Gaming Dealer ID Plasma Lactic Acid [place] (0.7-2.0) mmol/L Calcium (8.4-10.2) mg/dL Magnesium (1.6-2.3) mg/dL Total Bilirubin (0.2-1.3) mg/dL AST (17-59) U/L ALT (21-72) U/L Alkaline Phosphatase (38-126) U/L Ammonia (<30) umol/L Troponin I (0.000-0.034) ng/mL Total Protein (6.3-8.2) g/dL Albumin (3.5-5.0) g/dL Urine Color Yellow Urine Appearance Clear (Clear) Urine pH 6.0 (5.0-8.0) Ur Specific [place] 1.021 (1.001-1.035) Urine Protein 1+ H (Negative) Urine Glucose (UA) Negative (Negative) Urine Ketones Negative (Negative) Urine Blood Negative (Negative) Urine Nitrite Negative (Negative) Urine Bilirubin Negative (Negative) Urine Urobilinogen <2.0 (<2.0) mg/dL Ur Leukocyte Esterase Negative (Negative) Urine RBC <1 (0-5) /hpf Urine WBC 2 (0-5) /hpf Urine Mucus Rare H (None) /hpf Stool Occult Blood (Negative) Serum Alcohol mg/dL - EKG Data -: EKG Interpreted by [place] EKG shows normal: sinus rhythm, axis (Normal), intervals (Normal), QRS complexes (Normal), ST-T waves (Normal) Rate: normal (Rate 100 bpm) Disposition Clinical Impression: Hypercalcemia, Weakness Disposition: HOME SELF-CARE Condition: Good Instructions (If sedation given, give patient instructions): Hypercalcemia (ED) Is patient prescribed a controlled substance at d/c from ED?: No Referrals: Yordy Vaz DO [Primary Care Provider] - 1-2 days
[2019-05-28 22:03] LABS: Basophils # (A) 0.1 k/uL (0-0.2); Basophils % (A) 1 %; Eosinophils # (A) 0.1 k/uL (0-0.7); Eosinophils % (A) 3 %; HCT 30.3 % (39.0-53.0); HGB 9.9 gm/dL (13.0-17.5); Lymphocytes # (A) 0.7 k/uL (1.0-4.8); Lymphocytes % (A) 17 %; MCH 28.4 pg (25.0-35.0); MCHC 32.7 g/dL (31.0-37.0); Mean Platelet Volume 7.9; Monocytes # (A) 0.2 k/uL (0-1.0); Monocytes % (A) 5 %; Neutrophils # (A) 3.1 k/uL (1.3-7.7); Neutrophils % (A) 71 %; Platelet Count 120 k/uL (150-450); Poikilocytosis Slight; RBC 3.49 m/uL (4.30-5.90); RDW 14.6 % (11.5-15.5); WBC 4.3 k/uL (3.8-10.6)
[2019-05-28 22:13] LABS: ALT 16 U/L (21-72); AST 19 U/L (17-59); African American GFR (CKD) 78 (>60 ml/min/1.73 sqM); Albumin 4.4 g/dL (3.5-5.0); Alcohol <10 mg/dL; Alkaline Phosphatase 66 U/L (38-126); Ammonia <9 umol/L (<30); Anion Gap 12 mmol/L; Blood Urea Nitrogen 33 mg/dL (9-20); Calcium 12.2 mg/dL (8.4-10.2); Carbon Dioxide 21 mmol/L (22-30); Chloride 108 mmol/L (98-107); Glucose 136 mg/dL (74-99); Lactic Acid, Venous 1.1 mmol/L (0.7-2.0); Magnesium 1.8 mg/dL (1.6-2.3); Potassium 4.7 mmol/L (3.5-5.1); Sodium 141 mmol/L (137-145); Total Bilirubin 0.6 mg/dL (0.2-1.3); Total Protein 7.1 g/dL (6.3-8.2)
--- NOTE | 2019-05-28 22:20 | XR ---
EXAM: XR Chest, 2 Views CLINICAL HISTORY: dyspnea TECHNIQUE: Frontal and lateral views of the chest. COMPARISON: 03/10/19 FINDINGS: Lungs: Unremarkable. No consolidation. Pleural space: Unremarkable. No pneumothorax. Heart: Unremarkable. No cardiomegaly. Mediastinum: Unremarkable. Bones/joints: Unremarkable. IMPRESSION: Unremarkable 2 views of the chest. Stable compared to prior study.
[2019-05-28 22:40] VITALS: RESP 18
[2019-05-28 23:06] VITALS: TEMP 98.1
[2019-05-28 23:13] LABS: Appearance,Urine Clear (Clear); Bilirubin,Urine Negative (Negative); Blood,Urine Negative (Negative); Color,Urine Yellow; Glucose,Urine (UA) Negative (Negative); Ketones,Urine Negative (Negative); Leukocyte Esterase,Urine Negative (Negative); Mucus,Urine Rare /hpf; Nitrite,Urine Negative (Negative); Protein,Urine 1+ (Negative); RBC,Urine <1 /hpf (0-5); Specific Gravity,Urine 1.021 (1.001-1.035); Urobilinogen,Urine <2.0 mg/dL (<2.0); WBC,Urine 2 /hpf (0-5)
[2019-05-28] MEDS ORDERED: SODIUM CHLORIDE 0.9% 2,000 ML IV ONE (23:23)
[2019-05-28 23:50] VITALS: BP 154/88; PULSE 89
[2019-05-28] MEDS ORDERED: LORazepam 2 MG/ML INJ IV STA (23:51)
== END 2019-05-29 01:55 | disposition home or self-care (01) ==
LOC: EC 21:07
DX: E83.52 Hypercalcemia (principal); R53.1 Weakness; D64.9 Anemia, unspecified; F03.90 Unspecified dementia, unspecified severity, without behavioral disturbance, psychotic disturbance, mood disturbance, and anxiety; E78.5 Hyperlipidemia, unspecified; I10 Essential (primary) hypertension; K21.9 Gastro-esophageal reflux disease without esophagitis; H91.90 Unspecified hearing loss, unspecified ear; Z87.891 Personal history of nicotine dependence; Z79.899 Other long term (current) drug therapy; Z95.828 Presence of other vascular implants and grafts
CPT/HCPCS: 99285 ×2; 96374 ×2; 96361 ×3; 36415; 93005; 80053; 82140; 83605; 83735; 84484; 85025; 82272; 81001; 71046; G0480; J2060; 80320

== ENCOUNTER 2019-06-02 16:26 | Emergency (ER) | payer MEDICARE ==
--- NOTE | 2019-06-02 16:32 | ED ---
Weakness HPI - General Stated complaint: Back pain, unable to walk Time Seen by Provider: 06/02/19 16:31 Source: RN notes reviewed, old records reviewed Limitations: altered mental status - History of Present Illness Initial comments: This is a 74-year-old male the ER for evaluation history of severe dementia poor historian unable to give history but has no complaints family admits to increased weakness as of late. The symptoms worse over last couple days but is living going on for quite some time. No significant trauma, patient complaining of inability to ambulate today brought in by EMS history obtained from EMS and patient's MD Complaint: generalized weakness, lack of energy -: unknown Location: generalized, LLE Severity: mild Consistency: constant Improves with: none Worsens with: none Context: history of similar - Related Data Home Medications Medication Instructions Recorded Confirmed Atorvastatin [Lipitor] 20 mg PO HS 03/26/19 06/08/19 Folic Acid 0.5 mg PO DAILY 03/26/19 06/08/19 Magnesium Oxide [Mag-Ox] 250 mg PO BID 03/26/19 06/08/19 Memantine [Namenda] 10 mg PO DAILY 03/26/19 06/08/19 Niacin [Niaspan] 500 mg PO HS 03/26/19 06/08/19 Megestrol Acetate [Megace] 120 mg PO DAILY 05/28/19 06/08/19 Pantoprazole Sodium [Protonix] 40 mg PO BID 05/28/19 06/08/19 LORazepam [Ativan] 0.5 mg PO BID PRN 06/08/19 06/08/19 Allergies Allergy/AdvReac Type Severity Reaction Status Date / Time No Known Allergies Allergy Verified 06/08/19 16:19 Review of Systems ROS Statement: Those systems with pertinent positive or pertinent negative responses have been documented in the HPI. ROS Other: All systems not noted in ROS Statement are negative. Past Medical History Past Medical History: Dementia, Diabetes Mellitus, GERD/Reflux, GI Bleed, Hearing Disorder / Deafness, Hyperlipidemia, Hypertension, Memory Impairment, Osteoarthritis (OA) Additional Past Medical History / Comment(s): GLAUCOMA, Nov- per took pt off metformin because lab values were good and such drastic weight loss, incontinence of urine/stool no control, difficulty swallowing- has been choking on pills History of Any Multi-Drug Resistant Organisms: None Reported Past Surgical History: Hernia Repair Additional Past Surgical History / Comment(s): SURGERY FOR GLAUCOMA- BILATERAL EYES , BILATERAL INGUINAL HERNIA SURGERY, KIDNEY SURGERY-CYST REMOVED , adrenal gland removed, IVF placements for three blood clots PE and DVT, splenic vein clot Past Anesthesia/Blood Transfusion Reactions: No Reported Reaction Past Psychological History: Anxiety, Depression Smoking Status: Former smoker Past Alcohol Use History: None Reported Past Drug Use History: None Reported - Past Family History Mother Family Medical History: No Reported History General Exam General appearance: alert, in no apparent distress Head exam: Present: atraumatic, normocephalic, normal inspection Eye exam: Present: normal appearance, PERRL, EOMI. Absent: scleral icterus, co njunctival injection, periorbital swelling ENT exam: Present: normal exam, mucous membranes moist Neck exam: Present: normal inspection. Absent: tenderness, meningismus, lymphadenopathy Respiratory exam: Present: normal lung sounds bilaterally. Absent: respiratory distress, wheezes, rales, rhonchi, stridor Cardiovascular Exam: Present: regular rate, normal rhythm, normal heart sounds. Absent: systolic murmur, diastolic murmur, rubs, gallop, clicks GI/Abdominal exam: Present: soft, normal bowel sounds. Absent: distended, tenderness, guarding, rebound, rigid Extremities exam: Present: normal inspection, full ROM, normal capillary refill. Absent: tenderness, pedal edema, joint swelling, calf tenderness Back exam: Present: normal inspection Neurological exam: Present: alert, oriented X3, CN II-XII intact Psychiatric exam: Present: normal affect, normal mood Skin exam: Present: warm, dry, intact, normal color. Absent: rash Course Vital Signs 06/02/19 06/02/19 06/02/19 16:38 18:19 19:00 Temperature 97.9 F 97.3 F L Pulse Rate 92 88 88 Respiratory 18 20 20 Rate Blood Pressure 174/92 165/89 145/78 O2 Sat by Pulse 98 99 99 Oximetry - Reevaluation(s) Reevaluation #1: Medical record is reviewed Patient has strength in both lower extremities. Family okay with taking patient home EKG Findings - EKG Comments: EKG Findings:: EKG shows sinus rhythm rate 100, VA 1:30, QRS 86, QTc 420 Medical Decision Making - Medical Decision Making 74 female the ER for evaluation patient presents today for evaluation of weakness. No significant acute cause found. Patient can be discharged home - Lab Data Result diagrams: 06/02/19 16:55 06/02/19 16:55 Lab Results 06/02/19 06/02/19 06/02/19 Range/Units 16:55 16:55 16:55 WBC 2.6 L (3.8-10.6) k/uL RBC 3.62 L (4.30-5.90) m/uL Hgb 9.9 L (13.0-17.5) gm/dL Hct 31.2 L (39.0-53.0) % MCV 86.3 (80.0-100.0) fL MCH 27.4 (25.0-35.0) pg MCHC 31.7 (31.0-37.0) g/dL RDW 15.0 (11.5-15.5) % Plt Count 87 L (150-450) k/uL Neutrophils % 69 % Lymphocytes % 19 % Monocytes % 7 % Eosinophils % 2 % Basophils % 0 % Neutrophils # 1.8 (1.3-7.7) k/uL Lymphocytes # 0.5 L (1.0-4.8) k/uL Monocytes # 0.2 (0-1.0) k/uL Eosinophils # 0.1 (0-0.7) k/uL Basophils # 0.0 (0-0.2) k/uL Manual Slide Review Performed Polychromasia Present Poikilocytosis Slight PT (9.0-12.0) sec INR (<1.2) APTT (22.0-30.0) sec Sodium 141 (137-145) mmol/L Potassium 4.3 (3.5-5.1) mmol/L Chloride 108 H (98-107) mmol/L Carbon Dioxide 22 (22-30) mmol/L Anion Gap 11 mmol/L BUN 32 H (9-20) mg/dL Creatinine 1.10 (0.66-1.25) mg/dL Est GFR (CKD-EPI)AfAm 77 (>60 ml/min/1.73 sqM) Est GFR (CKD-EPI)NonAf 66 (>60 ml/min/1.73 sqM) Glucose 147 H (74-99) mg/dL Plasma Lactic Acid [place] 1.3 (0.7-2.0) mmol/L Calcium 12.8 H (8.4-10.2) mg/dL Phosphorus 2.7 (2.5-4.5) mg/dL Magnesium 1.8 (1.6-2.3) mg/dL Total Bilirubin 0.8 (0.2-1.3) mg/dL AST 20 (17-59) U/L ALT 16 L (21-72) U/L Alkaline Phosphatase 60 (38-126) U/L Ammonia <9 (<30) umol/L Creatine Kinase 42 L (55-170) U/L Troponin I (0.000-0.034) ng/mL NT-Pro-B Natriuret Pep pg/mL Total Protein 7.2 (6.3-8.2) g/dL Albumin 4.6 (3.5-5.0) g/dL Urine Color Urine Appearance (Clear) Urine pH (5.0-8.0) Ur Specific [place] (1.001-1.035) Urine Protein (Negative) Urine Glucose (UA) (Negative) Urine Ketones (Negative) Urine Blood (Negative) Urine Nitrite (Negative) Urine Bilirubin (Negative) Urine Urobilinogen (<2.0) mg/dL Ur Leukocyte Esterase (Negative) Urine RBC (0-5) /hpf Urine WBC (0-5) /hpf Ur Squamous Epith Cells (0-4) /hpf Hyaline Casts (0-2) /lpf 06/02/19 06/02/19 06/02/19 Range/Units 16:55 16:55 16:55 WBC (3.8-10.6) k/uL RBC (4.30-5.90) m/uL Hgb (13.0-17.5) gm/dL Hct (39.0-53.0) % MCV (80.0-100.0) fL MCH (25.0-35.0) pg MCHC (31.0-37.0) g/dL RDW (11.5-15.5) % Plt Count (150-450) k/uL Neutrophils % % Lymphocytes % % Monocytes % % Eosinophils % % Basophils % % Neutrophils # (1.3-7.7) k/uL Lymphocytes # (1.0-4.8) k/uL Monocytes # (0-1.0) k/uL Eosinophils # (0-0.7) k/uL Basophils # (0-0.2) k/uL Manual Slide Review Polychromasia Poikilocytosis PT 10.6 (9.0-12.0) sec INR 1.0 (<1.2) APTT 20.6 L (22.0-30.0) sec Sodium (137-145) mmol/L Potassium (3.5-5.1) mmol/L Chloride (98-107) mmol/L Carbon Dioxide (22-30) mmol/L Anion Gap mmol/L BUN (9-20) mg/dL Creatinine (0.66-1.25) mg/dL Est GFR (CKD-EPI)AfAm (>60 ml/min/1.73 sqM) Est GFR (CKD-EPI)NonAf (>60 ml/min/1.73 sqM) Glucose (74-99) mg/dL Plasma Lactic Acid [place] (0.7-2.0) mmol/L Calcium (8.4-10.2) mg/dL Phosphorus (2.5-4.5) mg/dL Magnesium (1.6-2.3) mg/dL Total Bilirubin (0.2-1.3) mg/dL AST (17-59) U/L ALT (21-72) U/L Alkaline Phosphatase (38-126) U/L Ammonia (<30) umol/L Creatine Kinase (55-170) U/L Troponin I <0.012 (0.000-0.034) ng/mL NT-Pro-B Natriuret Pep 432 pg/mL Total Protein (6.3-8.2) g/dL Albumin (3.5-5.0) g/dL Urine Color Urine Appearance (Clear) Urine pH (5.0-8.0) Ur Specific [place] (1.001-1.035) Urine Protein (Negative) Urine Glucose (UA) (Negative) Urine Ketones (Negative) Urine Blood (Negative) Urine Nitrite (Negative) Urine Bilirubin (Negative) Urine Urobilinogen (<2.0) mg/dL Ur Leukocyte Esterase (Negative) Urine RBC (0-5) /hpf Urine WBC (0-5) /hpf Ur Squamous Epith Cells (0-4) /hpf Hyaline Casts (0-2) /lpf 06/02/19 Range/Units 18:10 WBC (3.8-10.6) k/uL RBC (4.30-5.90) m/uL Hgb (13.0-17.5) gm/dL Hct (39.0-53.0) % MCV (80.0-100.0) fL MCH (25.0-35.0) pg MCHC (31.0-37.0) g/dL RDW (11.5-15.5) % Plt Count (150-450) k/uL Neutrophils % % Lymphocytes % % Monocytes % % Eosinophils % % Basophils % % Neutrophils # (1.3-7.7) k/uL Lymphocytes # (1.0-4.8) k/uL Monocytes # (0-1.0) k/uL Eosinophils # (0-0.7) k/uL Basophils # (0-0.2) k/uL Manual Slide Review Polychromasia Poikilocytosis PT (9.0-12.0) sec INR (<1.2) APTT (22.0-30.0) sec Sodium (137-145) mmol/L Potassium (3.5-5.1) mmol/L Chloride (98-107) mmol/L Carbon Dioxide (22-30) mmol/L Anion Gap mmol/L BUN (9-20) mg/dL Creatinine (0.66-1.25) mg/dL Est GFR (CKD-EPI)AfAm (>60 ml/min/1.73 sqM) Est GFR (CKD-EPI)NonAf (>60 ml/min/1.73 sqM) Glucose (74-99) mg/dL Plasma Lactic Acid [place] (0.7-2.0) mmol/L Calcium (8.4-10.2) mg/dL Phosphorus (2.5-4.5) mg/dL Magnesium (1.6-2.3) mg/dL Total Bilirubin (0.2-1.3) mg/dL AST (17-59) U/L ALT (21-72) U/L Alkaline Phosphatase (38-126) U/L Ammonia (<30) umol/L Creatine Kinase (55-170) U/L Troponin I (0.000-0.034) ng/mL NT-Pro-B Natriuret Pep pg/mL Total Protein (6.3-8.2) g/dL Albumin (3.5-5.0) g/dL Urine Color Yellow Urine Appearance Clear (Clear) Urine pH 6.5 (5.0-8.0) Ur Specific [place] 1.017 (1.001-1.035) Urine Protein 1+ H (Negative) Urine Glucose (UA) Negative (Negative) Urine Ketones Negative (Negative) Urine Blood Moderate H (Negative) Urine Nitrite Negative (Negative) Urine Bilirubin Negative (Negative) Urine Urobilinogen <2.0 (<2.0) mg/dL Ur Leukocyte Esterase Negative (Negative) Urine RBC 134 H (0-5) /hpf Urine WBC 4 (0-5) /hpf Ur Squamous Epith Cells <1 (0-4) /hpf Hyaline Casts 3 H (0-2) /lpf - Radiology Data Radiology results: report reviewed (CT brain chest and pelvis x-ray negative for acute disease), image reviewed Disposition Clinical Impression: Weakness, Thoracic back pain Disposition: HOME SELF-CARE Condition: Good Instructions (If sedation given, give patient instructions): Acute Low Back Pain (ED) Is patient prescribed a controlled substance at d/c from ED?: No Referrals: Yordy Vaz DO [Primary Care Provider] - 1-2 days
[2019-06-02] MEDS ORDERED: SODIUM CHLORIDE 0.9% 1,000 ML IV STA ×2 (16:51)
[2019-06-02 17:12] LABS: Basophils % (A) 0 %; Eosinophils # (A) 0.1 k/uL (0-0.7); Eosinophils % (A) 2 %; HCT 31.2 % (39.0-53.0); HGB 9.9 gm/dL (13.0-17.5); Lymphocytes # (A) 0.5 k/uL (1.0-4.8); Lymphocytes % (A) 19 %; MCH 27.4 pg (25.0-35.0); MCHC 31.7 g/dL (31.0-37.0); MCV 86.3 fL (80.0-100.0); Mean Platelet Volume 8.1; Monocytes # (A) 0.2 k/uL (0-1.0); Monocytes % (A) 7 %; Neutrophils # (A) 1.8 k/uL (1.3-7.7); Neutrophils % (A) 69 %; Poikilocytosis Slight; RBC 3.62 m/uL (4.30-5.90); WBC 2.6 k/uL (3.8-10.6)
[2019-06-02 17:21] LABS: Albumin 4.6 g/dL (3.5-5.0); Ammonia <9 umol/L (<30); Calcium 12.8 mg/dL (8.4-10.2); Lactic Acid, Venous 1.3 mmol/L (0.7-2.0); Magnesium 1.8 mg/dL (1.6-2.3); Phosphorus 2.7 mg/dL (2.5-4.5); Potassium 4.3 mmol/L (3.5-5.1); Total Bilirubin 0.8 mg/dL (0.2-1.3); Total Protein 7.2 g/dL (6.3-8.2)
[2019-06-02 17:25] LABS: Prothrombin Time 10.6 sec (9.0-12.0)
[2019-06-02 17:28] LABS: Partial Thromboplastin Time 20.6 sec (22.0-30.0)
[2019-06-02 17:30] LABS: Platelet Count 87 k/uL (150-450); Polychromasia Present
--- NOTE | 2019-06-02 17:45 | CT ---
EXAMINATION: CT brain wo con DATE AND TIME: 06/02/2019 5:27 PM CLINICAL INDICATION: PHH; weakness TECHNIQUE: Standard departmental protocol.; 1275.4; COMPARISON: 04/24/2019 FINDINGS: The calvarium is intact. There is no intracranial hemorrhage. There is no intracranial mass or mass effect. No definite new intra-axial or extra-axial attenuation defect. The paranasal sinuses, middle ear cavities, and mastoid sinus air cells are clear. The orbits are unremarkable. IMPRESSION: NO ACUTE PROCESS.
--- NOTE | 2019-06-02 17:49 | XR ---
EXAMINATION: XR chest 3V DATE AND TIME: 06/02/2019 5:36 PM CLINICAL INDICATION: PHH; Weakness TECHNIQUE: Frontal and 2 lateral views COMPARISON: 05/28/2019 FINDINGS: The lungs are clear. The pleural spaces are negative. The cardiac silhouette is not enlarged. The remainder of the mediastinal silhouette is unremarkable. The skeletal structures and soft tissues are negative for acute findings. IMPRESSION: NO ACUTE PROCESS.
--- NOTE | 2019-06-02 17:50 | XR ---
PROCEDURE: XR pelvis AP view DATE AND TIME: 06/02/2019 5:36 PM CLINICAL INDICATION: PHH; Pain TECHNIQUE: One AP view COMPARISON: None FINDINGS: There is no fracture or malalignment. The soft tissues are unremarkable. IMPRESSION: NO ACUTE PROCESS.
[2019-06-02 18:21] VITALS: PULSE 88; RESP 20
[2019-06-02 18:39] LABS: Appearance,Urine Clear (Clear); Bilirubin,Urine Negative (Negative); Blood,Urine Moderate (Negative); Color,Urine Yellow; Glucose,Urine (UA) Negative (Negative); Hyaline Casts,Urine 3 /lpf (0-2); Ketones,Urine Negative (Negative); Leukocyte Esterase,Urine Negative (Negative); Nitrite,Urine Negative (Negative); PH, Urine 6.5 (5.0-8.0); Protein,Urine 1+ (Negative); RBC,Urine 134 /hpf (0-5); Specific Gravity,Urine 1.017 (1.001-1.035); Squamous Epithelial Cell,Urine <1 /hpf (0-4); Urobilinogen,Urine <2.0 mg/dL (<2.0); WBC,Urine 4 /hpf (0-5)
[2019-06-02 19:18] VITALS: BP 145/78; TEMP 97.3
== END 2019-06-02 19:20 | disposition home or self-care (01) ==
LOC: EC 16:26
DX: R53.1 Weakness (principal); M54.6 Pain in thoracic spine; F03.90 Unspecified dementia, unspecified severity, without behavioral disturbance, psychotic disturbance, mood disturbance, and anxiety; K21.9 Gastro-esophageal reflux disease without esophagitis; E78.5 Hyperlipidemia, unspecified; I10 Essential (primary) hypertension; H40.9 Unspecified glaucoma; H91.90 Unspecified hearing loss, unspecified ear; Z87.891 Personal history of nicotine dependence; Z79.899 Other long term (current) drug therapy
CPT/HCPCS: 36415; 70450; 71046; 72170; 80053; 81001; 82140; 82550; 83605; 83735; 83880; 84100; 84484; 85025; 85610; 85730; 87086; 93005; 96360; 99284

== ENCOUNTER 2019-06-08 15:48 | Inpatient (IN) | payer MEDICARE ==
[2019-06-08] MEDS ORDERED: SODIUM CHLORIDE 0.9% 1,000 ML IV ONE (16:17)
[2019-06-08] MEDS ORDERED: SODIUM CHLORIDE 0.9% 500 ML 500 ML IV ONE (16:19)
[2019-06-08 16:41] LABS: Basophils % (A) 0 %; Eosinophils # (A) 0.1 k/uL (0-0.7); Eosinophils % (A) 3 %; HCT 33.7 % (39.0-53.0); HGB 11.3 gm/dL (13.0-17.5); Hypochromasia Slight; Lymphocytes # (A) 0.7 k/uL (1.0-4.8); Lymphocytes % (A) 22 %; MCH 28.1 pg (25.0-35.0); MCHC 33.5 g/dL (31.0-37.0); MCV 83.9 fL (80.0-100.0); Mean Platelet Volume 8.3; Monocytes # (A) 0.2 k/uL (0-1.0); Monocytes % (A) 7 %; Neutrophils # (A) 2.1 k/uL (1.3-7.7); Neutrophils % (A) 65 %; Poikilocytosis Moderate; RBC 4.01 m/uL (4.30-5.90); RDW 15.7 % (11.5-15.5); WBC 3.3 k/uL (3.8-10.6)
[2019-06-08 16:42] LABS: ALT 11 U/L (21-72); AST 22 U/L (17-59); African American GFR (CKD) >90 (>60 ml/min/1.73 sqM); Albumin 4.2 g/dL (3.5-5.0); Alkaline Phosphatase 69 U/L (38-126); Anion Gap 11 mmol/L; Blood Urea Nitrogen 18 mg/dL (9-20); Carbon Dioxide 23 mmol/L (22-30); Chloride 105 mmol/L (98-107); Creatine Kinase 41 U/L (55-170); Glucose 108 mg/dL (74-99); Potassium 4.1 mmol/L (3.5-5.1); Sodium 139 mmol/L (137-145); Total Bilirubin 1.1 mg/dL (0.2-1.3)
[2019-06-08 16:48] LABS: Calcium 13.2 mg/dL (8.4-10.2)
[2019-06-08 16:50] LABS: Lactic Acid, Venous 0.7 mmol/L (0.7-2.0)
[2019-06-08 16:55] LABS: Prothrombin Time 10.4 sec (9.0-12.0)
--- NOTE | 2019-06-08 17:00 | CT ---
EXAMINATION TYPE: CT brain wo con DATE OF EXAM: 06/08/2019 COMPARISON: 06/02/2019 HISTORY: Decreased mental status for [address] DLP: 1142.4 mGycm Automated exposure control for dose reduction was used. FINDINGS: There is cerebral cortical atrophy. There is no mass effect nor midline shift. There is no sign of in tracranial hemorrhage. There is mild enlargement of the ventricles. Calvarium appears intact. There i s mild mucosal thickening in the ethmoid air cells. There is mucosal thickening left side sphenoid si nus. There is mild hypodensity around the lateral ventricles. IMPRESSION: CEREBRAL ATROPHY AND CHRONIC SMALL VESSEL ISCHEMIA. NO ACUTE INTRACRANIAL ABNORMALITY. SINUSITIS. NO CHANGE COMPARED TO LAST EXAM.
--- NOTE | 2019-06-08 17:03 | XR ---
EXAMINATION TYPE: XR chest 2V DATE OF EXAM: 06/08/2019 COMPARISON: 06/02/2019 HISTORY: Altered mental status TECHNIQUE: Frontal and lateral views of the chest are obtained. FINDINGS: Heart and mediastinum are normal. Lungs are clear. Diaphragm is normal. There is spurring in the thoracic spine. Her chest leads. IMPRESSION: Normal chest. No change.
[2019-06-08 17:08] LABS: Partial Thromboplastin Time 20.6 sec (22.0-30.0)
[2019-06-08 17:12] LABS: Platelet Count 83 k/uL (150-450)
[2019-06-08 17:13] LABS: Large Platelets Present; Polychromasia Present
[2019-06-08 17:41] LABS: Appearance,Urine Clear (Clear); Bacteria,Urine Occasional /hpf; Bilirubin,Urine Negative (Negative); Blood,Urine Negative (Negative); Color,Urine Yellow; Glucose,Urine (UA) Negative (Negative); Ketones,Urine Negative (Negative); Leukocyte Esterase,Urine Negative (Negative); Mucus,Urine Rare /hpf; Nitrite,Urine Negative (Negative); Protein,Urine 1+ (Negative); RBC,Urine 1 /hpf (0-5); Specific Gravity,Urine 1.017 (1.001-1.035); Urobilinogen,Urine <2.0 mg/dL (<2.0)
--- NOTE | 2019-06-08 17:44 | ED ---
Altered Mental Status HPI - General Chief Complaint: Altered Mental Status Stated Complaint: Altered Mental Status Time Seen by Provider: 06/08/19 16:01 Source: family, EMS Mode of arrival: EMS Limitations: altered mental status - History of Present Illness Initial Comments: The patient is a 74-year-old male with past medical history of dementia who pre sents emergency Department with altered mental status. The reports that the patient has had a significant decline in his mentation over the past 48 hours. She reports that he is normally a and O 2-3 however most recent the patient has been difficult to arouse at home. He does have a home care nurse. She did present to the house today and was unable to arouse the patient. Because of this, EMS was called and the patient was brought to the emergency department. She reports he has a history of hypercalcemia in the past for which he did have similar symptoms. He is supposed to be following with Dr. Sesay on Saturday. Patient has not been previously seen by him. denies any blunt head trauma. The patient has not been reporting any headaches or visual changes. There has been no notable unilateral numbness or weakness. No fevers, chills, cough or reported chest pain. The patient denies any changes in his bowel or bladder habits. He hasn't been reporting any abdominal pain. No neck pain or stiffness. No recent medication changes. No history of urinary tract infections. Remainder of the HPI is limited due to the patient's current condition. - Related Data Home Medications Medication Instructions Recorded Confirmed Atorvastatin [Lipitor] 20 mg PO HS 03/26/19 06/08/19 Folic Acid 0.5 mg PO DAILY 03/26/19 06/08/19 Magnesium Oxide [Mag-Ox] 250 mg PO BID 03/26/19 06/08/19 Memantine [Namenda] 10 mg PO DAILY 03/26/19 06/08/19 Niacin [Niaspan] 500 mg PO HS 03/26/19 06/08/19 Megestrol Acetate [Megace] 120 mg PO DAILY 05/28/19 06/08/19 Pantoprazole Sodium [Protonix] 40 mg PO BID 05/28/19 06/08/19 LORazepam [Ativan] 0.5 mg PO BID PRN 06/08/19 06/08/19 Allergies Allergy/AdvReac Type Severity Reaction Status Date / Time No Known Allergies Allergy Verified 06/08/19 16:19 Review of Systems ROS Statement: Those systems with pertinent positive or pertinent negative responses have been documented in the HPI. ROS Other: All systems not noted in ROS Statement are negative. Past Medical History Past Medical History: Dementia, Diabetes Mellitus, GERD/Reflux, GI Bleed, Hear ing Disorder / Deafness, Hyperlipidemia, Hypertension, Memory Impairment, Osteoarthritis (OA) Additional Past Medical History / Comment(s): GLAUCOMA, Alex- per took pt off metformin because lab values were good and such drastic weight loss, incontinence of urine/stool no control, difficulty swallowing- has been choking on pills History of Any Multi-Drug Resistant Organisms: None Reported Past Surgical History: Hernia Repair Additional Past Surgical History / Comment(s): SURGERY FOR GLAUCOMA- BILATERAL EYES , BILATERAL INGUINAL HERNIA SURGERY, KIDNEY SURGERY-CYST REMOVED , adrenal gland removed, IVF placements for three blood clots PE and DVT, splenic vein clot Past Anesthesia/Blood Transfusion Reactions: No Reported Reaction Past Psychological History: Anxiety, Depression Smoking Status: Former smoker Past Alcohol Use History: None Reported Past Drug Use History: None Reported - Past Family History Mother Family Medical History: No Reported History Father Family Medical History: Dementia General Exam Limitations: altered mental status General appearance: lethargic, cachectic, other (Patient is arousable to tactile and verbal stimuli. He will open his eyes. He is protecting his airway.) Head exam: Present: atraumatic, normocephalic, normal inspection Eye exam: Present: normal appearance, PERRL, EOMI. Absent: scleral icterus, conjunctival injection, periorbital swelling ENT exam: Present: mucous membranes dry, normal external ear exam Neck exam: Present: normal inspection. Absent: tenderness, meningismus, lymphadenopathy Respiratory exam: Present: normal lung sounds bilaterally. Absent: respiratory distress, wheezes, rales, rhonchi, stridor, accessory muscle use Cardiovascular Exam: Present: normal rhythm, tachycardia, normal heart sounds. Absent: rubs, gallop, clicks GI/Abdominal exam: Present: soft, normal bowel sounds. Absent: distended, tenderness, guarding, rebound, rigid Rectal exam: Present: deferred Extremities exam: Present: normal inspection, normal capillary refill. Absent: tenderness, pedal edema, joint swelling, calf tenderness Back exam: Present: normal inspection Neurological exam: Present: altered, other (The patient arrives and is minimally responsive to verbal stimuli. He does open his eyes to tactile stimuli. He is confused, unoriented. He does not follow commands. He is protecting his airway. No focal weakness noted. The patient does have confused speech. He is easily agitated. He remains with his eyes closed.) Psychiatric exam: Present: agitated Skin exam: Present: warm, dry, intact, normal color. Absent: rash Course Vital Signs 06/08/19 06/08/19 06/08/19 15:55 16:00 16:01 Temperature 98.3 F Pulse Rate 104 H Respiratory 20 Rate Blood Pressure 197/122 180/113 197/122 O2 Sat by Pulse 94 L Oximetry 06/08/19 06/08/19 06/08/19 16:10 16:20 16:40 Temperature Pulse Rate 105 H 101 H Respiratory 9 L 20 Rate Blood Pressure 199/161 192/117 193/108 O2 Sat by Pulse 99 99 Oximetry 06/08/19 06/08/19 06/08/19 16:50 17:00 17:10 Temperature Pulse Rate 96 96 Respiratory 13 13 Rate Blood Pressure 193/108 193/108 189/110 O2 Sat by Pulse 99 99 Oximetry 06/08/19 06/08/19 06/08/19 17:20 17:26 17:30 Temperature 99.4 F Pulse Rate 92 96 Respiratory 14 14 Rate Blood Pressure 181/135 181/135 O2 Sat by Pulse 99 68 L Oximetry 06/08/19 06/08/19 06/08/19 17:40 17:50 18:00 Temperature Pulse Rate 107 H 101 H Respiratory 14 15 Rate Blood Pressure 204/121 216/124 216/124 O2 Sat by Pulse 76 L Oximetry 06/08/19 06/08/19 06/08/19 18:10 18:20 18:30 Temperature Pulse Rate 97 96 Respiratory 8 L 11 L 19 Rate Blood Pressure 198/126 205/113 205/113 O2 Sat by Pulse Oximetry 06/08/19 06/08/19 06/08/19 18:40 18:50 20:15 Temperature 97.8 F Pulse Rate 98 96 109 H Respiratory 18 13 Rate Blood Pressure 203/118 190/121 190/98 O2 Sat by Pulse 98 Oximetry 06/08/19 06/08/19 20:39 21:02 Temperature Pulse Rate 107 H 104 H Respiratory 18 16 Rate Blood Pressure 175/103 174/102 O2 Sat by Pulse 99 99 Oximetry Medical Decision Making - Medical Decision Making On arrival the patient is placed into room 2. He is hooked up to continuous pulse ox and cardiac monitoring. Peripheral IV had been established. 12-lead EKG was performed which demonstrated a sinus tachycardia. The patient is markedly hypertensive at this time. Because the patient's history of hypercalcemia I did initiate a 500 mL fluid bolus. Laboratory studies were conducted. I did perform CT of the patient's brain as well as a chest x-ray. Upon return results I did discuss them with the at bedside. Patient is reevaluated and is able to open his eyes at this time. He is arousable, however agitated. The patient does have an elevated calcium level of 13.2. I did order an ionized calcium as well as a magnesium, phosphorus, TSH. The patient does have pancytopenia. I did discuss the diagnosis, differential and treatment options. I recommend hospital admission for continued IV fluid hydration as well as evaluation for his recurrent hypercalcemia. The did agree to this. I did call discuss the case with Dr. Arango who did accept admission. I did place an order for a stat calcium to re-evaluate his level after fluids bolus. The patient was given hydralazine for his elevated blood pressure with formerly [facility] ent. The patient remained in stable condition awaiting transfer to the floor - Differential Diagnosis acute encephalopathy, acute hypercalcemia, anemia, accelerated htn, ckd - Lab Data Result diagrams: 06/11/19 06:30 06/11/19 06:30 Lab Results 06/08/19 06/08/19 06/08/19 Range/Units 15:58 15:58 15:58 WBC 3.3 L (3.8-10.6) k/uL RBC 4.01 L (4.30-5.90) m/uL Hgb 11.3 L (13.0-17.5) gm/dL Hct 33.7 L (39.0-53.0) % MCV 83.9 (80.0-100.0) fL MCH 28.1 (25.0-35.0) pg MCHC 33.5 (31.0-37.0) g/dL RDW 15.7 H (11.5-15.5) % Plt Count 83 L (150-450) k/uL Neutrophils % 65 % Lymphocytes % 22 % Monocytes % 7 % Eosinophils % 3 % Basophils % 0 % Neutrophils # 2.1 (1.3-7.7) k/uL Lymphocytes # 0.7 L (1.0-4.8) k/uL Monocytes # 0.2 (0-1.0) k/uL Eosinophils # 0.1 (0-0.7) k/uL Basophils # 0.0 (0-0.2) k/uL Manual Slide Review Performed Large Platelets Present Polychromasia Present Hypochromasia Slight Poikilocytosis Moderate PT 10.4 (9.0-12.0) sec INR 1.0 (<1.2) APTT 20.6 L (22.0-30.0) sec Sodium 139 (137-145) mmol/L Potassium 4.1 (3.5-5.1) mmol/L Chloride 105 (98-107) mmol/L Carbon Dioxide 23 (22-30) mmol/L Anion Gap 11 mmol/L BUN 18 (9-20) mg/dL Creatinine 0.94 (0.66-1.25) mg/dL Est GFR (CKD-EPI)AfAm >90 (>60 ml/min/1.73 sqM) Est GFR (CKD-EPI)NonAf 81 (>60 ml/min/1.73 sqM) Glucose 108 H (74-99) mg/dL Plasma Lactic Acid Chuy (0.7-2.0) mmol/L Calcium 13.2 H* (8.4-10.2) mg/dL Ionized Calcium Lexi Cancelled Phosphorus (2.5-4.5) mg/dL Magnesium (1.6-2.3) mg/dL Total Bilirubin 1.1 (0.2-1.3) mg/dL AST 22 (17-59) U/L ALT 11 L (21-72) U/L Alkaline Phosphatase 69 (38-126) U/L Ammonia (<30) umol/L Creatine Kinase 41 L (55-170) U/L Troponin I (0.000-0.034) ng/mL Total Protein 7.0 (6.3-8.2) g/dL Albumin 4.2 (3.5-5.0) g/dL TSH (0.465-4.680) mIU/L Free T4 (0.78-2.19) ng/dL Urine Color Urine Appearance (Clear) Urine pH (5.0-8.0) Ur Specific Royal (1.001-1.035) Urine Protein (Negative) Urine Glucose (UA) (Negative) Urine Ketones (Negative) Urine Blood (Negative) Urine Nitrite (Negative) Urine Bilirubin (Negative) Urine Urobilinogen (<2.0) mg/dL Ur Leukocyte Esterase (Negative) Urine RBC (0-5) /hpf Urine WBC (0-5) /hpf Urine Bacteria (None) /hpf Urine Mucus (None) /hpf 06/08/19 06/08/19 06/08/19 Range/Units 15:58 15:58 15:58 WBC (3.8-10.6) k/uL RBC (4.30-5.90) m/uL Hgb (13.0-17.5) gm/dL Hct (39.0-53.0) % MCV (80.0-100.0) fL MCH (25.0-35.0) pg MCHC (31.0-37.0) g/dL RDW (11.5-15.5) % Plt Count (150-450) k/uL Neutrophils % % Lymphocytes % % Monocytes % % Eosinophils % % Basophils % % Neutrophils # (1.3-7.7) k/uL Lymphocytes # (1.0-4.8) k/uL Monocytes # (0-1.0) k/uL Eosinophils # (0-0.7) k/uL Basophils # (0-0.2) k/uL Manual Slide Review Large Platelets Polychromasia Hypochromasia Poikilocytosis PT (9.0-12.0) sec INR (<1.2) APTT (22.0-30.0) sec Sodium (137-145) mmol/L Potassium (3.5-5.1) mmol/L Chloride (98-107) mmol/L Carbon Dioxide (22-30) mmol/L Anion Gap mmol/L BUN (9-20) mg/dL Creatinine (0.66-1.25) mg/dL Est GFR (CKD-EPI)AfAm (>60 ml/min/1.73 sqM) Est GFR (CKD-EPI)NonAf (>60 ml/min/1.73 sqM) Glucose (74-99) mg/dL Plasma Lactic Acid Chuy 0.7 (0.7-2.0) mmol/L Calcium (8.4-10.2) mg/dL Ionized Calcium Lexi Phosphorus 2.7 (2.5-4.5) mg/dL Magnesium 1.8 (1.6-2.3) mg/dL Total Bilirubin (0.2-1.3) mg/dL AST (17-59) U/L ALT (21-72) U/L Alkaline Phosphatase (38-126) U/L Ammonia 12 (<30) umol/L Creatine Kinase (55-170) U/L Troponin I <0.012 (0.000-0.034) ng/mL Total Protein (6.3-8.2) g/dL Albumin (3.5-5.0) g/dL TSH 0.099 L (0.465-4.680) mIU/L Free T4 1.86 (0.78-2.19) ng/dL Urine Color Urine Appearance (Clear) Urine pH (5.0-8.0) Ur Specific Royal (1.001-1.035) Urine Protein (Negative) Urine Glucose (UA) (Negative) Urine Ketones (Negative) Urine Blood (Negative) Urine Nitrite (Negative) Urine Bilirubin (Negative) Urine Urobilinogen (<2.0) mg/dL Ur Leukocyte Esterase (Negative) Urine RBC (0-5) /hpf Urine WBC (0-5) /hpf Urine Bacteria (None) /hpf Urine Mucus (None) /hpf 06/08/19 06/08/19 Range/Units 17:25 17:42 WBC (3.8-10.6) k/uL RBC (4.30-5.90) m/uL Hgb (13.0-17.5) gm/dL Hct (39.0-53.0) % MCV (80.0-100.0) fL MCH (25.0-35.0) pg MCHC (31.0-37.0) g/dL RDW (11.5-15.5) % Plt Count (150-450) k/uL Neutrophils % % Lymphocytes % % Monocytes % % Eosinophils % % Basophils % % Neutrophils # (1.3-7.7) k/uL Lymphocytes # (1.0-4.8) k/uL Monocytes # (0-1.0) k/uL Eosinophils # (0-0.7) k/uL Basophils # (0-0.2) k/uL Manual Slide Review Large Platelets Polychromasia Hypochromasia Poikilocytosis PT (9.0-12.0) sec INR (<1.2) APTT (22.0-30.0) sec Sodium (137-145) mmol/L Potassium (3.5-5.1) mmol/L Chloride (98-107) mmol/L Carbon Dioxide (22-30) mmol/L Anion Gap mmol/L BUN (9-20) mg/dL Creatinine (0.66-1.25) mg/dL Est GFR (CKD-EPI)AfAm (>60 ml/min/1.73 sqM) Est GFR (CKD-EPI)NonAf (>60 ml/min/1.73 sqM) Glucose (74-99) mg/dL Plasma Lactic Acid Chuy (0.7-2.0) mmol/L Calcium (8.4-10.2) mg/dL Ionized Calcium Lexi 7.3 H* Phosphorus (2.5-4.5) mg/dL Magnesium (1.6-2.3) mg/dL Total Bilirubin (0.2-1.3) mg/dL AST (17-59) U/L ALT (21-72) U/L Alkaline Phosphatase (38-126) U/L Ammonia (<30) umol/L Creatine Kinase (55-170) U/L Troponin I (0.000-0.034) ng/mL Total Protein (6.3-8.2) g/dL Albumin (3.5-5.0) g/dL TSH (0.465-4.680) mIU/L Free T4 (0.78-2.19) ng/dL Urine Color Yellow Urine Appearance Clear (Clear) Urine pH 6.0 (5.0-8.0) Ur Specific Royal 1.017 (1.001-1.035) Urine Protein 1+ H (Negative) Urine Glucose (UA) Negative (Negative) Urine Ketones Negative (Negative) Urine Blood Negative (Negative) Urine Nitrite Negative (Negative) Urine Bilirubin Negative (Negative) Urine Urobilinogen <2.0 (<2.0) mg/dL Ur Leukocyte Esterase Negative (Negative) Urine RBC 1 (0-5) /hpf Urine WBC <1 (0-5) /hpf Urine Bacteria Occasional H (None) /hpf Urine Mucus Rare H (None) /hpf - EKG Data -: EKG Interpreted by Me EKG Comments: EKG demonstrates a sinus tachycardia with a ventricular rate of 104. NJ interval 190. QRS 88. QTC 420. There are no acute ST segment elevations or depressions concerning for ischemic changes. Disposition Clinical Impression: Hypercalcemia, Pancytopenia, Accelerated hypertension Disposition: ADMITTED IP TO THIS HOSP Condition: Stable Is patient prescribed a controlled substance at d/c from ED?: No Decision to Admit Reason: Admit from EC Decision Date: 06/08/19 Decision Time: 19:40
[2019-06-08 18:11] LABS: Magnesium 1.8 mg/dL (1.6-2.3); Phosphorus 2.7 mg/dL (2.5-4.5)
[2019-06-08 19:18] LABS: T4, Free (Free Thyroxine) 1.86 ng/dL (0.78-2.19)
[2019-06-08] MEDS ORDERED: NALOXONE 0.4 MG/ML 1 ML VIAL IV PRN (19:33)
[2019-06-08] MEDS ORDERED: hydrALAZINE HCL 20 MG/ML 1 ML VIAL IVP STA (19:40)
[2019-06-08] MEDS ORDERED: PANTOPRAZOLE 40 MG TABLET PO SCH (21:00)
[2019-06-08] MEDS ORDERED: LABETALOL 5 MG/ML VIAL MDV IVP STA (22:06)
[2019-06-08] MEDS ORDERED: LORazepam 0.5 MG TAB PO PRN (22:07)
[2019-06-08] MEDS: MAGNESIUM OXIDE 400 MG TAB PO SCH (23:05)
[2019-06-08] MEDS: ATORVASTATIN 20 MG TAB PO SCH (23:05)
[2019-06-08] MEDS: SODIUM CHLORIDE 0.45% 1,000 ML IV SCH (23:29)
[2019-06-09] MEDS ORDERED: LORazepam 2 MG/ML INJ IV PRN (00:53)
[2019-06-09] MEDS: PANTOPRAZOLE 40 MG/10 ML VIAL IVP SCH ×3 (01:00→21:11)
[2019-06-09 06:58] LABS: African American GFR (CKD) >90 (>60 ml/min/1.73 sqM); Anion Gap 9 mmol/L; Blood Urea Nitrogen 17 mg/dL (9-20); Calcium 12.9 mg/dL (8.4-10.2); Carbon Dioxide 23 mmol/L (22-30); Chloride 105 mmol/L (98-107); Glucose 104 mg/dL (74-99); Sodium 137 mmol/L (137-145)
[2019-06-09 07:53] LABS: Basophils % (A) 1 %; Eosinophils # (A) 0.1 k/uL (0-0.7); Eosinophils % (A) 2 %; HCT 34.4 % (39.0-53.0); HGB 11.4 gm/dL (13.0-17.5); Lymphocytes # (A) 0.8 k/uL (1.0-4.8); Lymphocytes % (A) 18 %; MCH 28.1 pg (25.0-35.0); MCHC 33.2 g/dL (31.0-37.0); MCV 84.9 fL (80.0-100.0); Mean Platelet Volume 8.2; Monocytes # (A) 0.3 k/uL (0-1.0); Monocytes % (A) 6 %; Neutrophils # (A) 3.4 k/uL (1.3-7.7); Neutrophils % (A) 71 %; Poikilocytosis Slight; RBC 4.05 m/uL (4.30-5.90); RDW 15.4 % (11.5-15.5); WBC 4.8 k/uL (3.8-10.6)
[2019-06-09 08:05] LABS: Platelet Count 98 k/uL (150-450)
[2019-06-09] MEDS: FOLIC ACID 1 MG TAB PO SCH (08:51)
[2019-06-09] MEDS: MAGNESIUM OXIDE 400 MG TAB PO SCH ×2 (08:51→21:10)
[2019-06-09] MEDS ORDERED: ZOLEDRONIC ACID 4 MG in SODIUM CHLORIDE 0.9% 100 ML IV ONE (09:15)
[2019-06-09] MEDS: SODIUM CHLORIDE 0.45% 1,000 ML IV SCH ×2 (10:35→21:11)
--- NOTE | 2019-06-09 11:25 | P.HPIM ---
History of Present Illness Chief Complaint: Altered mental status This is a 74-year-old gentleman who was brought into the ER. At the time examin ation the patient was completely alert oriented 0. He was only responsive to sternal rub just by grimacing but would not open his eyes. Most of the history was taken with the help of his was at bedside. Apparently the patient has been becoming weaker and losing a lot of weight in the last few months. In the last 2 days the says that he's been becoming less and less responsive and not able to arouse at home. She thus called the EMS and by the patient was here for further urology management. The did not complain of any fever or chills that she noticed. He was not having any diarrhea or any constipation. He was not complaining of any shortness of breath or cough. I was not able to determine if he is having any chest pain or no as the patient is not responsive. The patient was just discharged 2 weeks ago to [facility]. He was initially admitted over here for GI bleed and had an EGD done which showed esophageal paresis with no history of cirrhosis and no evidence of splenic vein thrombosis. Apparently according to the she had IVC filter placed and his anti-coagulation was DC'd. He said that when he was discharged he was feeling fine. He had an appointment with Dr. Ambrose but has not seen the doctor yet. ER course-temperature 98.1 pulse 107 blood pressure 1 6491 satting 100% on room air respiration 16.. Labwork done in the ER showed WBC 3.3 hemoglobin 11.3 platelets 83 sodium 139 potassium 4.1 BU and 18 creatinine 0.94 GFR 81 lactic acid was 0.7 calcium was 13.2. Phosphorus was 2.7 bun admission was 1.8. Patient's LFTs are normal. TSH was 0.09. Free T4 was 1.86. CT of the brain was done which showed cerebral atrophy and chronic small vessel ischemia no acute intracranial abnormality and showed sinusitis. Patient was started on IV fluids and admitted to the hospitalist service a further evaluation and management. Review of Systems All systems: negative Past Medical History Past Medical History: Dementia, Diabetes Mellitus, GERD/Reflux, GI Bleed, Hearing Disorder / Deafness, Hyperlipidemia, Hypertension, Memory Impairment, Osteoarthritis (OA) Additional Past Medical History / Comment(s): GLAUCOMA, Alex- per took pt off metformin because lab values were good and such drastic weight loss, incontinence of urine/stool no control, difficulty swallowing- has been choking on pills History of Any Multi-Drug Resistant Organisms: None Reported Past Surgical History: Hernia Repair Additional Past Surgical History / Comment(s): SURGERY FOR GLAUCOMA- BILATERAL EYES , BILATERAL INGUINAL HERNIA SURGERY, KIDNEY SURGERY-CYST REMOVED , adrenal gland removed, IVF placements for three blood clots PE and DVT, splenic vein clot Past Anesthesia/Blood Transfusion Reactions: No Reported Reaction Past Psychological History: Anxiety, Depression Smoking Status: Former smoker Past Alcohol Use History: None Reported Past Drug Use History: None Reported - Past Family History Mother Family Medical History: No Reported History Father Family Medical History: Dementia Medications and Allergies Home Medications Medication Instructions Recorded Confirmed Type Atorvastatin [Lipitor] 20 mg PO HS 03/26/19 06/08/19 History Folic Acid 0.5 mg PO DAILY 03/26/19 06/08/19 History Magnesium Oxide [Mag-Ox] 250 mg PO BID 03/26/19 06/08/19 History Memantine [Namenda] 10 mg PO DAILY 03/26/19 06/08/19 History Niacin [Niaspan] 500 mg PO HS 03/26/19 06/08/19 History Megestrol Acetate [Megace] 120 mg PO DAILY 05/28/19 06/08/19 History Pantoprazole Sodium [Protonix] 40 mg PO BID 05/28/19 06/08/19 History LORazepam [Ativan] 0.5 mg PO BID PRN 06/08/19 06/08/19 History Allergies Allergy/AdvReac Type Severity Reaction Status Date / Time No Known Allergies Allergy Verified 06/08/19 16:19 Physical Exam Vitals: Vital Signs Temp Pulse Pulse Resp BP BP Pulse Ox 06/09/19 08:00 97.3 F L 102 H 20 155/80 99 06/09/19 04:10 98.1 F 107 H 16 164/91 100 06/09/19 04:00 110 H 17 06/08/19 22:50 110 H 17 06/08/19 22:45 98.5 F 110 H 17 161/89 96 06/08/19 21:02 104 H 16 174/102 99 06/08/19 20:39 107 H 18 175/103 99 06/08/19 20:15 97.8 F 109 H 190/98 98 06/08/19 18:50 96 13 190/121 06/08/19 18:40 98 18 203/118 06/08/19 18:30 96 19 205/113 06/08/19 18:20 11 L 205/113 06/08/19 18:10 97 8 L 198/126 06/08/19 18:00 101 H 15 216/124 06/08/19 17:50 216/124 06/08/19 17:40 107 H 14 204/121 76 L 06/08/19 17:30 96 14 181/135 68 L 06/08/19 17:26 99.4 F 06/08/19 17:20 92 14 181/135 99 06/08/19 17:10 96 13 189/110 99 06/08/19 17:00 96 13 193/108 99 06/08/19 16:50 193/108 06/08/19 16:40 193/108 06/08/19 16:20 101 H 20 192/117 99 06/08/19 16:10 105 H 9 L 199/161 99 06/08/19 16:01 98.3 F 104 H 20 197/122 94 L 06/08/19 16:00 180/113 06/08/19 15:55 197/122 Intake and Output 06/08/19 06/09/19 06/09/19 22:59 06:59 14:59 Intake Total 0 Balance 0 Intake: Oral 0 Other: # Voids 1 1 Weight 70.307 kg 55 kg 55 kg On exam, alert and oriented 0.. HEENT: Conjunctivae normal. eyes normal. NECK: No JVD. No thyroid enlargement. No LNs CARDIOVASCULAR: S1, S2 positive RESPIRATION: Breath sounds diminished in the bases. No rhonchi or crackles. No bronchial breathing. ABDOMEN: Soft, nontender . No guarding. no masses palpable. No ascites, No hepatosplenomegaly.Bowel sounds heard. LEGS: No edema. no swelling NERVOUS SYSTEM: Not able to do the cranial examination because the patient's mental condition Skin: no ulcer no rash Results CBC & Chem 7: 06/09/19 06:03 06/09/19 06:03 Labs: Abnormal Lab Results - Last 24 Hours (Table) 06/08/19 06/08/19 06/08/19 Range/Units 15:58 15:58 15:58 WBC 3.3 L (3.8-10.6) k/uL RBC 4.01 L (4.30-5.90) m/uL Hgb 11.3 L (13.0-17.5) gm/dL Hct 33.7 L (39.0-53.0) % RDW 15.7 H (11.5-15.5) % Plt Count 83 L (150-450) k/uL Lymphocytes # 0.7 L (1.0-4.8) k/uL APTT 20.6 L (22.0-30.0) sec Glucose 108 H (74-99) mg/dL Calcium 13.2 H* (8.4-10.2) mg/dL Ionized Calcium Lexi (4.5-5.3) mg/dL ALT 11 L (21-72) U/L Creatine Kinase 41 L (55-170) U/L TSH (0.465-4.680) mIU/L Urine Protein (Negative) Urine Bacteria (None) /hpf Urine Mucus (None) /hpf 06/08/19 06/08/19 06/08/19 Range/Units 15:58 17:25 17:42 WBC (3.8-10.6) k/uL RBC (4.30-5.90) m/uL Hgb (13.0-17.5) gm/dL Hct (39.0-53.0) % RDW (11.5-15.5) % Plt Count (150-450) k/uL Lymphocytes # (1.0-4.8) k/uL APTT (22.0-30.0) sec Glucose (74-99) mg/dL Calcium (8.4-10.2) mg/dL Ionized Calcium Lexi 7.3 H* (4.5-5.3) mg/dL ALT (21-72) U/L Creatine Kinase (55-170) U/L TSH 0.099 L (0.465-4.680) mIU/L Urine Protein 1+ H (Negative) Urine Bacteria Occasional H (None) /hpf Urine Mucus Rare H (None) /hpf 06/08/19 06/09/19 06/09/19 Range/Units 20:10 06:03 06:03 WBC (3.8-10.6) k/uL RBC 4.05 L (4.30-5.90) m/uL Hgb 11.4 L (13.0-17.5) gm/dL Hct 34.4 L (39.0-53.0) % RDW (11.5-15.5) % Plt Count 98 L (150-450) k/uL Lymphocytes # 0.8 L (1.0-4.8) k/uL APTT (22.0-30.0) sec Glucose 104 H (74-99) mg/dL Calcium 13.1 H* 12.9 H (8.4-10.2) mg/dL Ionized Calcium Lexi (4.5-5.3) mg/dL ALT (21-72) U/L Creatine Kinase (55-170) U/L TSH (0.465-4.680) mIU/L Urine Protein (Negative) Urine Bacteria (None) /hpf Urine Mucus (None) /hpf Thrombosis Risk Factor Assmnt - Choose All That Apply Any of the Below Risk Factors Present?: Yes Each Factor Represents 1 point: Medical pt on bed rest Other Risk Factors: Yes Each Risk Factor Represents 2 Points: Age 61-74 years Each Risk Factor Represents 3 Points: History of DVT/PE Other congenital or acquired thrombophilia - If yes, enter type in comment: No Thrombosis Risk Factor Assessment Total Risk Factor Score: 6 Thrombosis Risk Factor Assessment Level: High Risk Assessment and Plan Assessment: - Acute encephalopathy - Hypercalcemia - Weight loss - History of esophageal paresis of unknown etiology - 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 and apparently the patient has IVC filters as per the - History of GI bleed - History of dementia - History of diabetes mellitus - History of GERD - History of hypertension - History of hyperlipidemia - History of arthritis Plan - Patient is admitted to [facility] with telemetry - At the time examination the patient was completely alert oriented 0. The cause can be multifactorial. Could be because of hypercalcemia, dehydration. Low probability of infection at this point as the patient's vitals were stable. His lab work also is stable. We will anyways order for blood cultures and a UA to rule that out. We'll also order for pro calcitonin and CRP levels. - Hematology oncology has been consulted for the expert recommendations regarding this - We'll consult neurology for the expert recommendations - DVT and GI prophylaxis - We'll order for lab work in the morning - Expected length of stay more than 2 midnights - The wants the patient to be DO NOT RESUSCITATE limited Time with Patient: Greater than 30
--- NOTE | 2019-06-09 15:34 | P.CONS ---
History of Present Illness - Reason for Consult Consult date: 06/09/19 Hypercalcemia, pancytopenia Requesting physician: Nancy Goodson - Chief Complaint Altered mental status - History of Present Illness Mr. Price is a very pleasant 74-year-old male who was supposed to be seeing Dr. Sesay this Saturday for recent diagnosis of PE. Patient was seen previously by Dr. Sesay in 2011 and, I think again in 2014 for low platelets/ITP, no treatment was ever given that I'm aware of. Patient history taken from the chart. Diagnosis of dementia, in this medical record, 2017 is when this is noted. March 2019 is when the workup began for patient's weight loss and change in bowel habits. On 03/27 Dr. Brewster did an EGD and colonoscopy revealing gastric varices and hemorrhoids, biopsies negative for malignancy. On 04/08 CT AP with no evidence of malignancy. On 04/24 patient admitted for confusion, brain CT no evidence of malignancy, calcium was 18.7 on 04/22, he received zometa. 04/25 CT of the chest which revealed right lower lobe pulmonary embolism. Patient was sent to subacute rehab [facility]. Patient was in the ER on 04/30/2019 with a decreased hemoglobin of 6.9. On 05/01 he had an EGD with notable clotted varices in the fundus. Recommendation was to stop anticoagulation. Patient was transferred to [facility] and had IVC filter placed. On 06/02 patient was brought back to the emergency department unable to walk and intractable back pain. Calcium 12.8 on admit, 06/08 calcium 13.2. Patient's hemoglobin is stable at 11.4, white blood cell count is normal today, platelet count is 98,000. History of present illness obtained from his at the bedside. Over the last week states patient has come progressively withdrawn, confused, weak, he has lost approximately 50 pounds since November, she noted him complaining of diarrhea. She denied night sweats, fevers, recent illnesses, unusual cough, denies the patient complaining of difficulty swallowing, abdominal pain, bleeding, unusual musculoskeletal pains. She feels that he is progressively declining. Review of Systems Information about past medical history was obtained from at the bedside ROS unobtainable: due to mental status Past Medical History Past Medical History: Dementia, Diabetes Mellitus, GERD/Reflux, GI Bleed, Hearing Disorder / Deafness, Hyperlipidemia, Hypertension, Memory Impairment, Osteoarthritis (OA) Additional Past Medical History / Comment(s): GLAUCOMA, Alex- per took pt off metformin because lab values were good and such drastic weight loss, incontinence of urine/stool no control, difficulty swallowing- has been choking on pills History of Any Multi-Drug Resistant Organisms: None Reported Past Surgical History: Hernia Repair Additional Past Surgical History / Comment(s): SURGERY FOR GLAUCOMA- BILATERAL EYES , BILATERAL INGUINAL HERNIA SURGERY, KIDNEY SURGERY-CYST REMOVED , adrenal gland removed, IVF placements for three blood clots PE and DVT, splenic vein clot Past Anesthesia/Blood Transfusion Reactions: No Reported Reaction Past Psychological History: Anxiety, Depression Smoking Status: Former smoker Past Alcohol Use History: None Reported Past Drug Use History: None Reported - Past Family History Mother Family Medical History: No Reported History Father Family Medical History: Dementia Medications and Allergies Home Medications Medication Instructions Recorded Confirmed Type Atorvastatin [Lipitor] 20 mg PO HS 03/26/19 06/08/19 History Folic Acid 0.5 mg PO DAILY 03/26/19 06/08/19 History Magnesium Oxide [Mag-Ox] 250 mg PO BID 03/26/19 06/08/19 History Memantine [Namenda] 10 mg PO DAILY 03/26/19 06/08/19 History Niacin [Niaspan] 500 mg PO HS 03/26/19 06/08/19 History Megestrol Acetate [Megace] 120 mg PO DAILY 05/28/19 06/08/19 History Pantoprazole Sodium [Protonix] 40 mg PO BID 05/28/19 06/08/19 History LORazepam [Ativan] 0.5 mg PO BID PRN 06/08/19 06/08/19 History Allergies Allergy/AdvReac Type Severity Reaction Status Date / Time No Known Allergies Allergy Verified 06/08/19 16:19 Physical Exam Vitals: Vital Signs Temp Pulse Pulse Resp BP BP Pulse Ox 06/09/19 11:59 111 H 06/09/19 11:57 97.9 F 111 H 20 175/88 100 06/09/19 08:00 97.3 F L 102 H 20 155/80 99 06/09/19 04:10 98.1 F 107 H 16 164/91 100 06/09/19 04:00 110 H 17 06/08/19 22:50 110 H 17 06/08/19 22:45 98.5 F 110 H 17 161/89 96 06/08/19 21:02 104 H 16 174/102 99 06/08/19 20:39 107 H 18 175/103 99 06/08/19 20:15 97.8 F 109 H 190/98 98 06/08/19 18:50 96 13 190/121 06/08/19 18:40 98 18 203/118 06/08/19 18:30 96 19 205/113 06/08/19 18:20 11 L 205/113 06/08/19 18:10 97 8 L 198/126 06/08/19 18:00 101 H 15 216/124 06/08/19 17:50 216/124 06/08/19 17:40 107 H 14 204/121 76 L 06/08/19 17:30 96 14 181/135 68 L 06/08/19 17:26 99.4 F 06/08/19 17:20 92 14 181/135 99 06/08/19 17:10 96 13 189/110 99 06/08/19 17:00 96 13 193/108 99 06/08/19 16:50 193/108 06/08/19 16:40 193/108 06/08/19 16:20 101 H 20 192/117 99 06/08/19 16:10 105 H 9 L 199/161 99 06/08/19 16:01 98.3 F 104 H 20 197/122 94 L 06/08/19 16:00 180/113 06/08/19 15:55 197/122 Intake and Output 06/09/19 06/09/19 06/09/19 06:59 14:59 22:59 Intake Total 700 Balance 700 Intake: Intake, IV Titration 700 Amount Sodium Chloride 0.45% 1, 600 000 ml @ 75 mls/hr IV . [id number] [facility] Rx#:[id number] Zoledronic Acid 4 mg In 100 Sodium Chloride 0.9% 100 ml @ 315 mls/hr IV ONCE ONE Rx#:[id number] Oral 0 Other: # Voids 1 Weight 55 kg 55 kg - Constitutional General appearance: no acute distress, thin - EENT Normocephalic, atraumatic, nares are normal, no lymph nodes palpable in the neck or supraclavicular area - Neck Neck: no lymphadenopathy - Respiratory Respirations are even and unlabored Respiratory: bilateral: CTA - Cardiovascular PMI palpable on the chest wall Heart sounds: normal: S1, S2 leg Peripheral Edema: bilateral: None - Gastrointestinal General gastrointestinal: no absent bowel sounds, no decreased bowel sounds, no distended, no hepatomegaly, no hyperactive bowel sounds, normal bowel sounds, no organomegaly, no rigid, scaphoid, soft, no splenomegaly, no tenderness, no umbilical hernia, no ventral hernia - Integumentary Integumentary: pale - Neurologic Unable to assess, patient is able to move himself in the bed while sleeping, no focal deficit noted - Psychiatric Obtunded, patient snoring, moving his own body weight, he does with draw from painful stimuli Results CBC & Chem 7: 06/09/19 06:03 06/09/19 06:03 Labs: Abnormal Lab Results - Last 24 Hours (Table) 06/08/19 06/08/19 06/08/19 Range/Units 15:58 15:58 15:58 WBC 3.3 L (3.8-10.6) k/uL RBC 4.01 L (4.30-5.90) m/uL Hgb 11.3 L (13.0-17.5) gm/dL Hct 33.7 L (39.0-53.0) % RDW 15.7 H (11.5-15.5) % Plt Count 83 L (150-450) k/uL Lymphocytes # 0.7 L (1.0-4.8) k/uL APTT 20.6 L (22.0-30.0) sec Glucose 108 H (74-99) mg/dL Calcium 13.2 H* (8.4-10.2) mg/dL Ionized Calcium Lexi (4.5-5.3) mg/dL ALT 11 L (21-72) U/L Creatine Kinase 41 L (55-170) U/L TSH (0.465-4.680) mIU/L Urine Protein (Negative) Urine Bacteria (None) /hpf Urine Mucus (None) /hpf 06/08/19 06/08/19 06/08/19 Range/Units 15:58 17:25 17:42 WBC (3.8-10.6) k/uL RBC (4.30-5.90) m/uL Hgb (13.0-17.5) gm/dL Hct (39.0-53.0) % RDW (11.5-15.5) % Plt Count (150-450) k/uL Lymphocytes # (1.0-4.8) k/uL APTT (22.0-30.0) sec Glucose (74-99) mg/dL Calcium (8.4-10.2) mg/dL Ionized Calcium Lexi 7.3 H* (4.5-5.3) mg/dL ALT (21-72) U/L Creatine Kinase (55-170) U/L TSH 0.099 L (0.465-4.680) mIU/L Urine Protein 1+ H (Negative) Urine Bacteria Occasional H (None) /hpf Urine Mucus Rare H (None) /hpf 06/08/19 06/09/19 06/09/19 Range/Units 20:10 06:03 06:03 WBC (3.8-10.6) k/uL RBC 4.05 L (4.30-5.90) m/uL Hgb 11.4 L (13.0-17.5) gm/dL Hct 34.4 L (39.0-53.0) % RDW (11.5-15.5) % Plt Count 98 L (150-450) k/uL Lymphocytes # 0.8 L (1.0-4.8) k/uL APTT (22.0-30.0) sec Glucose 104 H (74-99) mg/dL Calcium 13.1 H* 12.9 H (8.4-10.2) mg/dL Ionized Calcium Lexi (4.5-5.3) mg/dL ALT (21-72) U/L Creatine Kinase (55-170) U/L TSH (0.465-4.680) mIU/L Urine Protein (Negative) Urine Bacteria (None) /hpf Urine Mucus (None) /hpf Abdominal x-ray: report reviewed CT scan - pelvis: report reviewed Assessment and Plan (1) Hypercalcemia Narrative/Plan: An additional dose of Zometa has been given for hypercalcemia. Patient is on IV fluids. Previous evaluation of parathyroid hormone is suggestive of a malignant process driving the elevated calcium. Differential diagnosis strongly favoring multiple myeloma Current Visit: Yes Status: Acute Priority: High Code(s): E83.52 - HYPERCALCEMIA SNOMED Code(s): 55406459 (2) Pancytopenia Narrative/Plan: Patient's counts are low but in a safe range at this time, no acute intervention. Current Visit: Yes Status: Acute Priority: High Code(s): D61.818 - OTHER PANCYTOPENIA SNOMED Code(s): 069344227 (3) Cachexia Narrative/Plan: Rapid cachexia is always concerning for underlying malignancy. Patient has had imaging studies, nothing suggesting solid tumor disease. Patient has had components of the myeloma workup done, there is a mild paraproteinemia and a Merom chain, additional studies have been ordered. Current Visit: Yes Status: Acute Priority: High Code(s): R64 - CACHEXIA SNOMED Code(s): 312499242 (4) Pulmonary embolism Narrative/Plan: IVC filter placement at [facility] as patient was unable to tolerate anticoagulation with history of gastric varices, he did have a gastrointestinal bleed about 6 weeks ago. Current Visit: Yes Status: Acute Priority: High Code(s): I26.99 - OTHER PULMONARY EMBOLISM WITHOUT ACUTE COR PULMONALE SNOMED Code(s): 57938202 Plan: IgG kappa monoclonal paraprotein identified on 04/23/2019. M spike is 0.24 g/dL on 04/22. Bone survey is going to be requested as soon as patient is more alert. Patient's has multiple myeloma herself so, she understands the process of workup. May require bone marrow biopsy and aspirate. Further plans and recommendations to follow once patient's obtundation is improved.
[2019-06-09] MEDS: LABETALOL 5 MG/ML VIAL MDV IVP PRN (16:31)
[2019-06-09 17:54] LABS: Protein, Total 6.3 g/dL (6.2-8.2)
[2019-06-09] MEDS: ATORVASTATIN 20 MG TAB PO SCH (21:10)
[2019-06-09 21:49] LABS: Glucose,Whole Blood 98 mg/dL (75-99)
[2019-06-10] MEDS: PANTOPRAZOLE 40 MG/10 ML VIAL IVP SCH (09:01)
[2019-06-10] MEDS: LABETALOL 5 MG/ML VIAL MDV IVP PRN (09:01)
[2019-06-10 10:07] LABS: Albumin 3.67 g/dL (3.80-4.90); Gamma Globulin 0.78 g/dL (0.70-1.50)
[2019-06-10 10:13] LABS: Ionized Calcium 6.8 mg/dL (4.5-5.3)
[2019-06-10 10:14] LABS: Free Kappa Lt Chain Qnt, Serum 2.52 mg/dL (0.33-1.94)
[2019-06-10 10:20] LABS: Albumin 3.7 g/dL (3.5-5.0); Calcium 12.2 mg/dL (8.4-10.2); Potassium 4.1 mmol/L (3.5-5.1); Total Bilirubin 1.5 mg/dL (0.2-1.3); Total Protein 6.3 g/dL (6.3-8.2)
--- NOTE | 2019-06-10 11:41 | P.PN ---
Subjective This is a 74-year-old gentleman who was brought into the ER. At the time examination the patient was completely alert oriented 0. He was only res ponsive to sternal rub just by grimacing but would not open his eyes. Most of the history was taken with the help of his was at bedside. Apparently the patient has been becoming weaker and losing a lot of weight in the last few months. In the last 2 days the says that he's been becoming less and less responsive and not able to arouse at home. She thus called the EMS and by the patient was here for further urology management. The did not complain of any fever or chills that she noticed. He was not having any diarrhea or any constipation. He was not complaining of any shortness of breath or cough. I was not able to determine if he is having any chest pain or no as the patient is not responsive. The patient was just discharged 2 weeks ago to [facility]. He was initially admitted over here for GI bleed and had an EGD done which showed esophageal paresis with no history of cirrhosis and no evidence of splenic vein thrombosis. Apparently according to the she had IVC filter placed and his anti-coagulation was DC'd. He said that when he was discharged he was feeling fine. He had an appointment with Dr. Ambrose but has not seen the doctor yet. ER course-temperature 98.1 pulse 107 blood pressure 1 6491 satting 100% on room air respiration 16.. Labwork done in the ER showed WBC 3.3 hemoglobin 11.3 platelets 83 sodium 139 potassium 4.1 BU and 18 creatinine 0.94 GFR 81 lactic acid was 0.7 calcium was 13.2. Phosphorus was 2.7 bun admission was 1.8. Patient's LFTs are normal. TSH was 0.09. Free T4 was 1.86. CT of the brain was done which showed cerebral atrophy and chronic small vessel ischemia no acute intracranial abnormality and showed sinusitis. Patient was started on IV fluids and admitted to the hospitalist service a further evaluation and management. 06/10/2019 Patient still unresponsive. Chest responding to painful stimuli by grimacing He is breathing on his own. He is able to clear his secretions and is having good cough reflex right now. Rest of the review of system was unobtainable because the patient's condition Objective - Vital Signs Vital signs: Vital Signs Temp 97.3 F L 06/10/19 08:00 Pulse 115 H 06/10/19 08:00 Resp 16 06/10/19 08:00 BP 176/101 06/10/19 08:00 Pulse Ox 97 06/10/19 08:00 Intake & Output 06/09/19 06/10/19 06/10/19 18:59 06:59 18:59 Intake Total 700 690 Balance 700 690 Weight 55 kg 55.5 kg Intake: Intake, IV Titration 700 690 Amount Sodium Chloride 0.45% 1, 600 375 000 ml @ 75 mls/hr IV . [id number] [facility] Rx#:[id number] Zoledronic Acid 4 mg In 100 315 Sodium Chloride 0.9% 100 ml @ 315 mls/hr IV ONCE ONE Rx#:[id number] Oral 0 Other: # Voids 3 # Bowel Movements 2 - Exam On exam, alert and oriented 0.. HEENT: Conjunctivae normal. eyes normal. NECK: No JVD. No thyroid enlargement. No LNs CARDIOVASCULAR: S1, S2 positive RESPIRATION: Breath sounds diminished in the bases. No rhonchi or crackles. No bronchial breathing. ABDOMEN: Soft, nontender . No guarding. no masses palpable. No ascites, No hepatosplenomegaly.Bowel sounds heard. LEGS: No edema. no swelling NERVOUS SYSTEM: Not able to do the cranial examination because the patient's mental condition Skin: no ulcer no rash - Labs CBC & Chem 7: 06/09/19 06:03 06/10/19 09:24 Labs: Abnormal Lab Results - Last 24 Hours (Table) 06/09/19 06/09/19 06/10/19 Range/Units 06:03 06:03 09:24 Sodium 134 L (137-145) mmol/L Carbon Dioxide 19 L (22-30) mmol/L Glucose 111 H (74-99) mg/dL Calcium 12.2 H (8.4-10.2) mg/dL Ionized Calcium Lexi 6.8 H* (4.5-5.3) mg/dL Total Bilirubin 1.5 H (0.2-1.3) mg/dL ALT 11 L (21-72) U/L Albumin (PEP) 3.67 L (3.80-4.90) g/dL Zfoup-4-[id number] 0.41 H (0.10-0.40) g/dL Procalcitonin 0.40 H (0.02-0.09) ng/mL Free Solon LC, Quant 2.52 H (0.33-1.94) mg/dL Assessment and Plan Assessment: - Acute encephalopathy - Hypercalcemia - Weight loss - History of esophageal paresis of unknown etiology - History of DVT/PE was on anticoagulation which was DC'd in [facility] and apparently the patient has IVC filters as per the - History of GI bleed - History of dementia - History of diabetes mellitus - History of GERD - History of hypertension - History of hyperlipidemia - History of arthritis Plan 06/09/2019 - [facility] - At the time examination the patient was completely alert oriented 0. The cause can be multifactorial. Could be because of hypercalcemia, dehydration. Low probability of infection at this point as the patient's vitals were stable. His lab work also is stable. We will anyways order for blood cultures and a UA to rule that out. We'll also order for pro calcitonin and CRP levels. - Hematology oncology has been consulted for the expert recommendations regarding this - We'll consult neurology for the expert recommendations - DVT and GI prophylaxis - We'll order for lab work in the morning - Expected length of stay more than 2 midnights - The wants the patient to be DO NOT RESUSCITATE limited 06/10/2019 - Discussed in length with the patient's daughter. - Explained to the daughter that his situation is really critical at this stage. He is still not responding. His calcium is slowly coming down but is not back to normal. I explained to her that he could be having a cancer versus multiple myeloma with the diagnosis is not confirmed as of now. The cause for his encephalopathy is not known at this stage it could be multifactorial because of hypercalcemia, because of subclinical seizures, infections although less likely. - He will be started on calcitonin and we will repeat the calcium levels in the evening again and in the morning tomorrow - Case was discussed with neurology who will be seeing the patient shortly. We'll order for an EEG - We will continue current medical care. - Also discussed with the daughter regarding feeding. I gave her the options of NG tube and starting to feedings through that route. Daughter wants the mother to be here before making the decision.
[2019-06-10] MEDS: CALCITONIN INJ 200 UNIT/ML (MDV) VIAL SQ SCH ×2 (12:36→21:32)
--- NOTE | 2019-06-10 14:22 | CDI ---
Documentation Clarification Form Date: 06/10/19 1410 From: Ana Echavarira RN, CCDS Admit Date: 06/08/2019 7:33:00 PM Patient Name: Jewel Price Visit Number: [id number] ATTENTION: The Clinical Documentation Specialists (CDI) and [facility] Coding Staff appreciate your assistance in clarifying documentation. Please respond to the clarification below the line at the bottom and electronically sign. The CDI & [facility] Coding staff will review the response and follow-up if needed. Please note: Queries are made part of the Legal Health Record. If you have any questions, please contact the author of this message via ITS. Dr. Mauricio Arango Encephalopathy is documented in the H&P and Attending Progress Note. History/Risk Factors: DVT/PE w/ IVC, GIB, Anemia, dementia, dm, Gerd, htn, hyperlip, oa Clinical Indicators: 06/10 Attending Progress Note: "Acute Encephalopathy" Labs: Hg 11.3/11.4 , Ca + 13.2/ 12.9 CT Brain: Cerebral Atrophy and chronic small vessel ischemia Treatment: Folic Acid .5 mg PO QD Ativan 1 mg IVP Q 12 hrs 500 CC IVF Bolus In your professional opinion, can you please clarify the specific type of Encephalopathy, if known? Hypertensive Encephalopathy Metabolic Encephalopathy Toxic Encephalopathy Hepatic Encephalopathy, if indicated, please clarify: Indicate if any complications: Coma, other disease process? Indicate whether acute, sub-acute or chronic? Causal Condition: Alcoholism, Hepatitis, other disease process? Other, please specify Unable to determine (Last Revision: February 2018) Unable to determine MTDD
[2019-06-10] MEDS ORDERED: IOPAMIDOL-300 CONTRAST 30 ML VIAL (ORAL USE) PO PRN (14:26)
--- NOTE | 2019-06-10 16:17 | P.PN ---
Subjective Progress Note Date: 06/10/19 Principal diagnosis: obtunded, hypercalcemia Pt responds to painfurl stimuli and loud voice. Reports from staff of pt awake, very confused and moving around in the bed without assistance all night Objective - Vital Signs Vital signs: Vital Signs Temp 97.3 F L 06/10/19 08:00 Pulse 103 H 06/10/19 12:00 Resp 16 06/10/19 16:00 BP 152/85 06/10/19 12:00 Pulse Ox 97 06/10/19 12:00 Intake & Output 06/09/19 06/10/19 06/10/19 18:59 06:59 18:59 Intake Total 700 690 Balance 700 690 Weight 55 kg 55.5 kg Intake: Intake, IV Titration 700 690 Amount Sodium Chloride 0.45% 1, 600 375 000 ml @ 75 mls/hr IV . [id number] [facility] Rx#:[id number] Zoledronic Acid 4 mg In 100 315 Sodium Chloride 0.9% 100 ml @ 315 mls/hr IV ONCE ONE Rx#:[id number] Oral 0 Other: # Voids 3 3 # Bowel Movements 2 - Constitutional General appearance: Present: no acute distress, thin - EENT Eyes: Present: anicteric sclerae, PERRLA ENT: Present: normal oropharynx - Respiratory Respiratory: bilateral: CTA - Cardiovascular Rhythm: regular Heart sounds: normal: S1, S2 - Peripheral edema leg Peripheral Edema: bilateral: None - Gastrointestinal General gastrointestinal: Present: normal bowel sounds, scaphoid, soft. Absent: absent bowel sounds, decreased bowel sounds, distended, hepatomegaly, hyperactive bowel sounds, organomegaly, rigid, splenomegaly, tenderness, umbilical hernia, ventral hernia - Neurologic Neurologic: Absent: CNII-XII intact, focal deficits - Musculoskeletal Musculoskeletal: Absent: gait normal, generalized weakness, strength equal bilaterally, right sided weakness, left sided weakness - Psychiatric Psychiatric: Absent: A&O x's 3, appropriate affect, intact judgment & insight - Labs CBC & Chem 7: 06/09/19 06:03 06/10/19 09:24 Labs: Abnormal Lab Results - Last 24 Hours (Table) 06/09/19 06/09/19 06/10/19 Range/Units 06:03 06:03 09:24 Sodium 134 L (137-145) mmol/L Carbon Dioxide 19 L (22-30) mmol/L Glucose 111 H (74-99) mg/dL Calcium 12.2 H (8.4-10.2) mg/dL Ionized Calcium Lexi 6.8 H* (4.5-5.3) mg/dL Total Bilirubin 1.5 H (0.2-1.3) mg/dL ALT 11 L (21-72) U/L Albumin (PEP) 3.67 L (3.80-4.90) g/dL Saysn-6-Hggjtslsc 0.41 H (0.10-0.40) g/dL Procalcitonin 0.40 H (0.02-0.09) ng/mL Free Haywood LC, Quant 2.52 H (0.33-1.94) mg/dL Assessment and Plan (1) Hypercalcemia Narrative/Plan: Zometa has been given. Calcitonin ordered for 4 doses. Patient is on IV fl uids. Previous evaluation of parathyroid hormone is suggestive of a malignant process driving the elevated calcium. Differential diagnosis strongly favoring multiple myeloma, labs pending Current Visit: Yes Status: Acute Priority: High Code(s): E83.52 - HYPERCALCEMIA SNOMED Code(s): 33389942 (2) Pancytopenia Narrative/Plan: Stable, not requiring intervention Current Visit: Yes Status: Acute Priority: High Code(s): D61.818 - OTHER PANCYTOPENIA SNOMED Code(s): 722958595 (3) Cachexia Narrative/Plan: Rapid cachexia is always concerning for underlying malignancy. Patient has had imaging studies, nothing suggesting solid tumor disease. Patient has had components of the myeloma workup done, there is a mild paraproteinemia and a Haywood chain, additional studies have been ordered. Will consider TPN in the next 24 hours if pt does not become awake enough to eat Current Visit: Yes Status: Acute Priority: High Code(s): R64 - CACHEXIA SNOMED Code(s): 231132529 (4) Pulmonary embolism Narrative/Plan: IVC filter placement at [facility] as patient was unable to tolerate anticoagulation with history of gastric varices, he did have a gastrointestinal bleed about 6 weeks ago. Current Visit: Yes Status: Acute Priority: High Code(s): I26.99 - OTHER PU LMONARY EMBOLISM WITHOUT ACUTE COR PULMONALE SNOMED Code(s): 80263911 Plan: IgG kappa monoclonal paraprotein identified on 04/23/2019. M spike is 0.24 g/dL on 04/22. Bone survey is going to be requested as soon as patient is more alert. Patient's has multiple myeloma herself so, she understands the process of workup. May require bone marrow biopsy and aspirate. Further plans and recommendations to follow once patient's obtundation is improved.
[2019-06-10] MEDS: MAGNESIUM OXIDE 400 MG TAB PO SCH ×2 (16:45→20:02)
[2019-06-10] MEDS: FOLIC ACID 1 MG TAB PO SCH (16:45)
[2019-06-10] MEDS: PANTOPRAZOLE 40 MG TABLET PO SCH (16:45)
[2019-06-10] MEDS: ATORVASTATIN 20 MG TAB PO SCH (20:02)
--- NOTE | 2019-06-10 20:05 | EEG ---
ELECTROENCEPHALOGRAM REPORT DATE OF PROCEDURE: 06/10/2019. ELECTROENCEPHALOGRAM (EEG) REPORT: TECHNIQUE: A routine 18-channel EEG was performed with video using the 10/20 international electrode placement system. HISTORY: Patient became unresponsive at home. Calcium levels were critical upon admission. Patient was dehydrated. CURRENT MEDICATIONS: Unknown. STUDY DURATION: 20 minutes. FINDINGS: Overall, this recording was of low amplitude and interpretation was performed at 5- microvolt sensitivity. BACKGROUND: A sustained posterior-dominant rhythm was not seen. Frequencies of the posterior quadrants consisted of poorly modulated 2-4 Hz waveforms. ACTIVATION: Hyperventilation: Not performed. Photic stimulation: Mild symmetric driving seen. SLEEP: Drowsy. ABNORMALITIES: 1. Diffuse synchronous and asynchronous 2-4 Hz slow-wave activity was seen. 2. Intermixed with this were occasional triphasic waves. IMPRESSION: Abnormal EEG. The triphasic waves mentioned above are not epileptiform in nature. The diffuse synchronous and asynchronous delta-range slowing mentioned above is not epileptiform in nature. Triphasic waves can be seen in the setting of a metabolic encephalopathy. In combination, these findings indicate severe diffuse cerebral dysfunction as may be seen in a toxometabolic encephalopathy. No seizures were recorded. No epileptiform activity was present. Some of these findings may be state related, as the patient was noted to be drowsy for the majority of the recording. Clinical correlation is recommended. These findings were called to the patient's nurse at 7:07 p.m. on 06/10/2019. MMODL / IJN: [id number] / MTDDonna
[2019-06-10] MEDS: SODIUM CHLORIDE 0.45% 1,000 ML IV SCH (20:53)
--- NOTE | 2019-06-10 21:02 | P.CNNES ---
History of Present Illness Consult date: 06/10/19 Reason for Consult: Altered mental status Chief complaint: Altered mental status History of Present Illness: REFERRING PHYSICIAN: Dr. Arango HISTORY OF PRESENT ILLNESS: Thank you for allowing me to evaluate Mr. Jewel Price. Mr. Jewel Price is a 74 year-old man with PMHx of esophageal paresis, DVT/PE s/p IVC filter, GI bleed, dementia, DM, GERD, HTN, HLD, arthritis, who presented to [facility] for change in mental status since about 48 hours prior to ED presentation. Family not present during evaluation. Per ED report and H&P, patient's stated that he had a significant decline in mental status. At baseline, he is at least A&Ox2, but recently, patient has been difficult to arouse at home. Pt's home care nurse came, and because she could not arouse the patient, EMS was called and patient brought to ED. had denied any recent headache, visual changes, fevers, chills, cough, chest pain, or any ur inary/bowel changes. PAST MEDICAL HISTORY: As above PAST SURGICAL HISTORY: IVC filter placement, hernia repair, glaucoma surgery HOME MEDICATIONS: Memantine, atorvastatin, MgOx, Niacin, folic acid, Megace, Protonix, Ativan PRN SOCIAL HISTORY: Former smoker, unable to obtain other information FAMILY HISTORY: Unable to obtain other information REVIEW OF SYSTEMS: The 14 systems are reviewed and no additional points are identified compared to the review of systems documented history and physical PHYSICAL EXAMINATION: VITAL SIGNS: T 97.3 HR 115 RR 16 BP 176/101 O2 sat 97% on RA GEN.: Lying down in bed, not in acute distress, not opening eyes to verbal or painful stimuli although grimaces, moans and moves all 4 extremities when arms and legs moved to position him on his bed. HEENT: NCAT, sclera without icterus NECK: Supple SKIN AND EXTREMITIES: Warm to touch, no edema Neuro: MENTAL STATUS: Lying down in bed, not in acute distress, not opening eyes to verbal or painful stimuli although grimaces, moans and moves all 4 extremities when arms and legs moved to position him on his bed CRANIAL NERVES II THROUGH XII: II: Pupils are equal and reactive to light symmetrically. No afferent pupillary defect. Blinks to threat in both eyes. No obvious facial asymmetry. MOTOR/SENSORY: Not much grimacing to pinching in all 4 extremities, but when attempted to reposition patient, patient began moving all 4 extremities, groaning and grimacing. REFLEXES: [2+ biceps, brachioradialis, triceps, 1+ patella, 2+ ankles, 3-beating clonus. Toes are downgoing. Joelle's is absent] COORDINATION/GAIT: Deferred DIAGNOSTIC TESTING: Laboratory: WBC 4.8 Hgb 11.4 Plt 98 Na 137 K 4.0 Cl 105 CO2 23 BUN 17 Cr 0.87 Ca 13.1->12.9 Imaging: CT Head w/o contrast 06/08/19: Cerebral atrophy, chronic small vessel ischemia, no acute intracranial abnormality, sinusitis. ASSESSMENT and PLAN: Mr. Jewel Price is a 74 year-old man with PMHx of esophageal paresis, DVT/PE s/p IVC filter, GI bleed, dementia, DM, GERD, HTN, HLD, arthritis, who presented to [facility] for change in mental status since about 48 hours prior to ED presentation. Pt has baseline dementia, and as such, any metabolic changes can also push him into worse clinical picture. Differential diagnosis for altered mental status in this patient is broad, and includes: primary neurologic causes (seizure, dementia, etc), psychiatric (delirium), cardiovascular (hypertensive encephalopathy, etc), metabolic derangements (hypercalcemia, hyperammonemnia, etc), infectious (meningitis/encephalitis, UTI, etc). Recommendations: 1. Routine EEG 2. Continue to monitor CBC and CMP 3. Obtain ammonia level 4. HTN management per primary team (at this time, patient is not on any standing HTN medication) 5. If patient continues to remain altered with correction of metabolic derangements and negative infectious work up, will consider obtaining MRI brain w/o contrast 6. Neurology will continue to follow. Past Medical History Past Medical History: Dementia, Diabetes Mellitus, GERD/Reflux, GI Bleed, Hearing Disorder / Deafness, Hyperlipidemia, Hypertension, Memory Impairment, Osteoarthritis (OA) Additional Past Medical History / Comment(s): GLAUCOMA, Alex- per took pt off metformin because lab values were good and such drastic weight loss, incontinence of urine/stool no control, difficulty swallowing- has been choking on pills History of Any Multi-Drug Resistant Organisms: None Reported Past Surgical History: Hernia Repair Additional Past Surgical History / Comment(s): SURGERY FOR GLAUCOMA- BILATERAL EYES , BILATERAL INGUINAL HERNIA SURGERY, KIDNEY SURGERY-CYST REMOVED , adrenal gland removed, IVF placements for three blood clots PE and DVT, splenic vein cl ot Past Anesthesia/Blood Transfusion Reactions: No Reported Reaction Past Psychological History: Anxiety, Depression Smoking Status: Former smoker Past Alcohol Use History: None Reported Past Drug Use History: None Reported - Past Family History Mother Family Medical History: No Reported History Father Family Medical History: Dementia Medications and Allergies Home Medications Medication Instructions Recorded Confirmed Type Atorvastatin [Lipitor] 20 mg PO HS 03/26/19 06/08/19 History Folic Acid 0.5 mg PO DAILY 03/26/19 06/08/19 History Magnesium Oxide [Mag-Ox] 250 mg PO BID 03/26/19 06/08/19 History Memantine [Namenda] 10 mg PO DAILY 03/26/19 06/08/19 History Niacin [Niaspan] 500 mg PO HS 03/26/19 06/08/19 History Megestrol Acetate [Megace] 120 mg PO DAILY 05/28/19 06/08/19 History Pantoprazole Sodium [Protonix] 40 mg PO BID 05/28/19 06/08/19 History LORazepam [Ativan] 0.5 mg PO BID PRN 06/08/19 06/08/19 History Allergies Allergy/AdvReac Type Severity Reaction Status Date / Time No Known Allergies Allergy Verified 06/08/19 16:19 Physical Examination - Vital Signs Vital Signs: Vital Signs Temp Pulse Resp BP Pulse Ox 06/10/19 12:00 103 H 16 152/85 97 06/10/19 08:00 97.3 F L 115 H 16 176/101 97 06/10/19 04:00 97.8 F 101 H 17 168/95 97 06/10/19 00:00 97.7 F 99 17 176/96 98 06/09/19 20:00 97.9 F 101 H 16 181/97 98 06/09/19 15:46 97.6 F 106 H 20 177/100 98 Intake and Output 06/09/19 06/10/19 06/10/19 22:59 06:59 14:59 Intake Total 690 Balance 690 Intake: Intake, IV Titration 690 Amount Sodium Chloride 0.45% 1, 375 000 ml @ 75 mls/hr IV . [id number] Rx#:[id number] Zoledronic Acid 4 mg In 315 Sodium Chloride 0.9% 100 ml @ 315 mls/hr IV ONCE ONE Rx#:[id number] Other: # Voids 3 3 3 # Bowel Movements 1 2 Weight 55.5 kg Results - Laboratory Findings CBC and BMP: 06/09/19 06:03 06/10/19 09:24 Abnormal Lab Findings: Abnormal Labs 06/08/19 06/08/19 06/08/19 15:58 15:58 15:58 WBC 3.3 L RBC 4.01 L Hgb 11.3 L Hct 33.7 L RDW 15.7 H Plt Count 83 L Lymphocytes # 0.7 L APTT 20.6 L Sodium Carbon Dioxide Glucose 108 H Calcium 13.2 H* Ionized Calcium Lexi Total Bilirubin ALT 11 L Creatine Kinase 41 L Albumin (PEP) [id number] Procalcitonin TSH Urine Protein Urine Bacteria Urine Mucus Free [place] LC, Quant 06/08/19 06/08/19 06/08/19 15:58 17:25 17:42 WBC RBC Hgb Hct RDW Plt Count Lymphocytes # APTT Sodium Carbon Dioxide Glucose Calcium Ionized Calcium Lexi 7.3 H* Total Bilirubin ALT Creatine Kinase Albumin (PEP) [id number] Procalcitonin TSH 0.099 L Urine Protein 1+ H Urine Bacteria Occasional H Urine Mucus Rare H Free [place] LC, Quant 06/08/19 06/09/19 06/09/19 20:10 06:03 06:03 WBC RBC 4.05 L Hgb 11.4 L Hct 34.4 L RDW Plt Count 98 L Lymphocytes # 0.8 L APTT Sodium Carbon Dioxide Glucose 104 H Calcium 13.1 H* 12.9 H Ionized Calcium Lexi Total Bilirubin ALT Creatine Kinase Albumin (PEP) [id number] Procalcitonin TSH Urine Protein Urine Bacteria Urine Mucus Free [place] LC, Quant 06/09/19 06/09/19 06/10/19 06:03 06:03 09:24 WBC RBC Hgb Hct RDW Plt Count Lymphocytes # APTT Sodium 134 L Carbon Dioxide 19 L Glucose 111 H Calcium 12.2 H Ionized Calcium Lexi 6.8 H* Total Bilirubin 1.5 H ALT 11 L Creatine Kinase Albumin (PEP) 3.67 L [id number] 0.41 H Procalcitonin 0.40 H TSH Urine Protein Urine Bacteria Urine Mucus Free [place] LC, Quant 2.52 H
[2019-06-10] MEDS ORDERED: FUROSEMIDE 10 MG/ML 4 ML VIAL IV STA (22:51)
--- NOTE | 2019-06-11 00:39 | XR ---
EXAM: XR Chest, 1 View CLINICAL HISTORY: ITS.REASON XR Reason: fluid overload TECHNIQUE: Frontal view of the chest. COMPARISON: Chest x-ray 06/08/2019 FINDINGS: Lungs: No focal pulmonary infiltrates or consolidations. No evidence of overt congestive failure or pulmonary edema. Pleural space: No significant pleural effusion. No evidence of pneumothorax. Heart: Heart size is within normal limits. Mediastinum: Mediastinal structures are unremarkable. Bones/joints: Imaged bony thorax is unremarkable. IMPRESSION: No evidence of acute cardiopulmonary disease.
[2019-06-11] MEDS: SODIUM CHLORIDE 0.45% 1,000 ML IV SCH (02:16)
[2019-06-11] MEDS: PANTOPRAZOLE 40 MG TABLET PO SCH ×2 (04:48→14:59)
[2019-06-11 07:19] LABS: Anisocytosis Slight; Basophils % (A) 0 %; Eosinophils % (A) 0 %; HCT 33.9 % (39.0-53.0); HGB 11.6 gm/dL (13.0-17.5); Lymphocytes # (A) 0.4 k/uL (1.0-4.8); Lymphocytes % (A) 5 %; MCH 27.9 pg (25.0-35.0); MCHC 34.3 g/dL (31.0-37.0); MCV 81.4 fL (80.0-100.0); Mean Platelet Volume 8.4; Monocytes # (A) 0.4 k/uL (0-1.0); Monocytes % (A) 5 %; Neutrophils # (A) 7.8 k/uL (1.3-7.7); Neutrophils % (A) 89 %; Platelet Count 132 k/uL (150-450); Poikilocytosis Moderate; RBC 4.16 m/uL (4.30-5.90); RDW 16.6 % (11.5-15.5); WBC 8.8 k/uL (3.8-10.6)
[2019-06-11 07:31] LABS: Albumin 4.1 g/dL (3.5-5.0); Total Bilirubin 1.6 mg/dL (0.2-1.3); Total Protein 6.7 g/dL (6.3-8.2)
[2019-06-11] MEDS: FOLIC ACID 1 MG TAB PO SCH (08:38)
[2019-06-11] MEDS: MAGNESIUM OXIDE 400 MG TAB PO SCH ×2 (08:38→20:00)
--- NOTE | 2019-06-11 13:09 | P.PN ---
Progress Note - Text Progress Note Date: 06/11/19 SUBJECTIVE/INTERVAL EVENTS: oacute overnight events. is at bedside. States that patient has had similar episode of significant sleepiness, and at that time, patient was found with calcium in his blood. With hydration, patient's mental status improved to baseline. Patient with baseline dementia. PHYSICAL EXAMINATION: VITAL SIGNS: Temperature 98.6 pulse rate 121 respiratory rate 18 blood pressure 170/92 O2 sat 99% on room air GEN.: NAD, pleasant and cooperative HEENT: NCAT, sclera without icterus NECK: Supple, no carotid bruit SKIN AND EXTREMITIES: Warm to touch, no edema PHYSICAL EXAMINATION: VITAL SIGNS: T 97.3 HR 115 RR 16 BP 176/101 O2 sat 97% on RA GEN.: Lying down in bed, not in acute distress, not opening eyes to verbal or painful stimuli although grimaces, moans and moves all 4 extremities when arms and legs moved to position him on his bed. HEENT: NCAT, sclera without icterus NECK: Supple SKIN AND EXTREMITIES: Warm to touch, no edema Neuro: MENTAL STATUS: Lying down in bed, not in acute distress, not opening eyes to verbal or painful stimuli although grimaces, moans and moves all 4 extremities when arms and legs moved to position him on his bed CRANIAL NERVES II THROUGH XII: II: Pupils are equal and reactive to light symmetrically. No afferent pupillary defect. Blinks to threat in both eyes. No obvious facial asymmetry. MOTOR/SENSORY: Not much grimacing to pinching in all 4 extremities, but when attempted to reposition patient, patient began moving all 4 extremities, groaning and grimacing. REFLEXES: 2+ biceps, brachioradialis, triceps, 1+ patella, 2+ ankles, 3-beating clonus. Toes are downgoing. Joelle's is absent COORDINATION/GAIT: Deferred DIAGNOSTIC TESTING: Laboratory: WBC 8.8 Hgb 11.6 Plt 132 Na 133 K 4.0 Cl 98 CO2 21 BUN 23 Cr 1.29 Ca 13.1->12.9 Imaging: CT Head w/o contrast 06/08/19: Cerebral atrophy, chronic small vessel ischemia, no acute intracranial abnormality, sinusitis. EEG 06/10/2019: Abnormal EEG. The triphasic waves mentioned above are not epileptiform in nature. These findings indicate a severe diffuse cerebral dysfunction as may be seen in a toxo metabolic encephalopathy. No seizures were recorded. ASSESSMENT and PLAN: Mr. Jewel Price is a 74 year-old man with PMHx of esophageal paresis, DVT/PE s/p IVC filter, GI bleed, dementia, DM, GERD, HTN, HLD, arthritis, who presented to [facility] for change in mental status since about 48 hours prior to ED presentation. Pt has baseline dementia, and as such, any metabolic changes can also push him into worse clinical picture. Differential diagnosis for altered mental status in this patient is broad, and includes: primary neurologic causes (seizure, dementia, etc), psychiatric (delirium), cardiovascular (hypertensive encephalopathy, etc), metabolic derangements (hypercalcemia, hyperammonemnia, etc), infectious (meningitis/encephalitis, UTI, etc). EEG showing triphasic waves, likely due to metabolic etiology. Recommendations: 1. Continue to monitor CBC and CMP; consider checking ammonia level if patient's mental status does not improve with correction of metabolic derangement (pt with elevated Cr and Ca level also with minimal improvement; pt may need more hydration) 2. HTN management per primary team 3. If patient continues to remain altered with correction of metabolic derangements and negative infectious work up, will consider obtaining MRI brain w/o contrast 4. Neurology will sign off at this time. Please feel free to contact Neurology again if with additional questions or concerns.
[2019-06-11] MEDS: CALCITONIN INJ 200 UNIT/ML (MDV) VIAL SQ SCH ×2 (14:57→20:10)
--- NOTE | 2019-06-11 16:53 | P.PN ---
Subjective Progress Note Date: 06/11/19 Principal diagnosis: obtunded, hypercalcemia Pt responds to painfurl stimuli and loud voice today with some opening of the eyes. No other significant changes. Objective - Vital Signs Vital signs: Vital Signs Temp 98.1 F 06/11/19 08:00 Pulse 123 H 06/11/19 12:00 Resp 18 06/11/19 12:00 BP 161/104 06/11/19 12:00 Pulse Ox 95 06/11/19 12:00 Intake & Output 06/10/19 06/11/19 06/11/19 18:59 06:59 18:59 Intake Total 10 Balance 10 Weight 55.5 kg Intake: IV 10 Invasive Line 2 10 Other: # Voids 1 1 2 # Bowel Movements 1 - Constitutional General appearance: Present: thin - EENT EENT Comment(s): dry mouth Eyes: Present: anicteric sclerae - Respiratory Respiratory: bilateral: CTA - Cardiovascular Heart sounds: normal: S1, S2 - Peripheral edema leg Peripheral Edema: bilateral: None - Gastrointestinal General gastrointestinal: Present: decreased bowel sounds, scaphoid, soft - Neurologic Neurologic: Absent: CNII-XII intact, focal deficits - Psychiatric Psychiatric: Absent: A&O x's 3, appropriate affect, intact judgment & insight - Labs CBC & Chem 7: 06/11/19 06:30 06/11/19 06:30 Labs: Abnormal Lab Results - Last 24 Hours (Table) 06/11/19 06/11/19 06/11/19 Range/Units 06:30 06:30 09:54 RBC 4.16 L (4.30-5.90) m/uL Hgb 11.6 L (13.0-17.5) gm/dL Hct 33.9 L (39.0-53.0) % RDW 16.6 H (11.5-15.5) % Plt Count 132 L (150-450) k/uL Neutrophils # 7.8 H (1.3-7.7) k/uL Lymphocytes # 0.4 L (1.0-4.8) k/uL Sodium 133 L (137-145) mmol/L Carbon Dioxide 21 L (22-30) mmol/L BUN 23 H (9-20) mg/dL Creatinine 1.29 H (0.66-1.25) mg/dL Glucose 155 H (74-99) mg/dL Calcium 12.0 H (8.4-10.2) mg/dL Ionized Calcium Lexi 6.3 H* (4.5-5.3) mg/dL Total Bilirubin 1.6 H (0.2-1.3) mg/dL AST 16 L (17-59) U/L ALT 15 L (21-72) U/L Assessment and Plan (1) Hypercalcemia Narrative/Plan: Zometa has been given. Calcitonin ordered for 4 doses. Patient is on IV fluids. Calcium level is down to 12 today. Current Visit: Yes Status: Acute Priority: High Code(s): E83.52 - HYPERCALCEMIA SNOMED Code(s): 25094202 (2) Pancytopenia Narrative/Plan: WBC is within normal limits, platelet count near normal at 132,000 today. Very mild edema hemoglobin in the 11 range. Current Visit: Yes Status: Acute Priority: High Code(s): D61.818 - OTHER PANCYTOPENIA SNOMED Code(s): 663686986 (3) Cachexia Narrative/Plan: Patient is not alert enough to eat. Case discussed with Attending, see below for full discussion and plans Current Visit: Yes Status: Acute Priority: High Code(s): R64 - CACHEXIA SNOMED Code(s): 099351736 (4) Pulmonary embolism Narrative/Plan: IVC filter placement at [facility] as patient was unable to tolerate anticoagulation with history of gastric varices, he did have a gastrointestinal bleed about 6 weeks ago. Current Visit: Yes Status: Acute Priority: High Code(s): I26.99 - OTHER PULMONARY EMBOLISM WITHOUT ACUTE COR PULMONALE SNOMED Code(s): 90856279 Plan: Despite previous documented findings and information from the chart of a M-spike and a monoclonal protein, patient's myeloma work up this visit has come back negative, no monoclonal paraprotein or M-spike. It was discussed with patient's that with all of the lab work coming back negative for myeloma as the underlying cause to patient's profound hypercalcemia and obtundation that further investigation to identify a cause is necessary. Recommendation is for a nuclear medicine bone scan, CT of the chest abdomen and pelvis, MRI of the brain and lumbar puncture for CSF evaluation. Also, there needs to be a decision made regarding nutritional supplementation, i.e. PEG tube. All of 's questions were answered to the best of my ability. She also spoke with Attending who did the same. states she knows her 's wishes regarding health and end of life. She would like to talk to their children. She will make further decisions regarding how she would like to proceed based on her 's wishes and her family's opinions. All current supportive care and treatments will continue. Attending did order an Infectious Disease consult.
[2019-06-11] MEDS: ATORVASTATIN 20 MG TAB PO SCH (20:00)
--- NOTE | 2019-06-12 00:01 | P.CONS ---
History of Present Illness - Reason for Consult Consult date: 06/11/19 Encephalopathy and question of infectious etiology Requesting physician: Mauricio Arango - Chief Complaint Mental status changes times few days - History of Present Illness Patient is a 74-year-old male who has been brought into the ER at [facility] on 06/08/2019 for evaluation of mental status changes according to the the patient medication has been on the downside for about 2 days before the patient was brought into the hospital on the day of presentation to the hospital had the home care nurse came and she was unable to wake the patient up, hence EMS was called and the patient was brought to the hospital patient did have a CT of the brain that has been negative for any bleed chest x-ray did not show any acute infiltrate patient noticed to have elevated calcium and is being managed by admitting team for the last 3 days the patient has not been able to and remains to be lethargic though no fever has been recorded and no elevated white count the patient's CRP is normal pro calcitonin and was mildly elevated 0.40, neurology has been on the case since admission infectious disease was consulted today to rule out any infectious etiology most information has been obtained from review the chart and talking to the as the patient himself is unable to afford any history, did not mention any fever prior to the patient becoming lethargic, unresponsive no history of any headache nausea or vomiting or any focal weakness Review of Systems Positive points has been mentioned in HPI complete review could not be obtained because of the patient mental status Past Medical History Past Medical History: Dementia, Diabetes Mellitus, GERD/Reflux, GI Bleed, Hear ing Disorder / Deafness, Hyperlipidemia, Hypertension, Memory Impairment, Osteoarthritis (OA) Additional Past Medical History / Comment(s): GLAUCOMA, Nov- per took pt off metformin because lab values were good and such drastic weight loss, incontinence of urine/stool no control, difficulty swallowing- has been choking on pills History of Any Multi-Drug Resistant Organisms: None Reported Past Surgical History: Hernia Repair Additional Past Surgical History / Comment(s): SURGERY FOR GLAUCOMA- BILATERAL EYES , BILATERAL INGUINAL HERNIA SURGERY, KIDNEY SURGERY-CYST REMOVED , adrenal gland removed, IVF placements for three blood clots PE and DVT, splenic vein clot Past Anesthesia/Blood Transfusion Reactions: No Reported Reaction Past Psychological History: Anxiety, Depression Smoking Status: Former smoker Past Alcohol Use History: None Reported Past Drug Use History: None Reported - Past Family History Mother Family Medical History: No Reported History Father Family Medical History: Dementia Medications and Allergies Home Medications Medication Instructions Recorded Confirmed Type Atorvastatin [Lipitor] 20 mg PO HS 03/26/19 06/08/19 History Folic Acid 0.5 mg PO DAILY 03/26/19 06/08/19 History Magnesium Oxide [Mag-Ox] 250 mg PO BID 03/26/19 06/08/19 History Memantine [Namenda] 10 mg PO DAILY 03/26/19 06/08/19 History Niacin [Niaspan] 500 mg PO HS 03/26/19 06/08/19 History Megestrol Acetate [Megace] 120 mg PO DAILY 05/28/19 06/08/19 History Pantoprazole Sodium [Protonix] 40 mg PO BID 05/28/19 06/08/19 History LORazepam [Ativan] 0.5 mg PO BID PRN 06/08/19 06/08/19 History Allergies Allergy/AdvReac Type Severity Reaction Status Date / Time No Known Allergies Allergy Verified 06/08/19 16:19 Physical Exam Vitals: Vital Signs Temp Pulse Resp BP Pulse Ox 06/11/19 12:00 123 H 18 161/104 95 06/11/19 11:36 18 06/11/19 08:00 98.1 F 102 H 18 163/90 95 06/11/19 04:00 98.6 F 121 H 18 170/92 99 06/11/19 00:00 99.0 F 130 H 20 181/99 95 06/10/19 20:00 99.2 F 119 H 18 175/95 96 06/10/19 16:00 114 H 16 152/81 97 Intake and Output 06/11/19 06/11/19 06/11/19 06:59 14:59 22:59 Intake Total 10 Balance 10 Intake: IV 10 Invasive Line 2 10 Other: # Voids 1 2 # Bowel Movements 1 Weight 55.5 kg GENERAL DESCRIPTION: An elderly male lying in bed, no distress. No tachypnea or accessory muscle of respiration use. HEENT: Shows Pallor , no scleral icterus. Oral mucous membrane is dry. No pharyngeal erythema or thrush NECK: Trachea central, no thyromegaly. LUNGS: Unlabored breathing. Decreased breath sound at the base. No wheeze or crackle. HEART: S1, S2, regular rate and rhythm. No loud murmur ABDOMEN: Soft, no tenderness , guarding or rigidity, no organomegaly EXTREMITIES: No edema of feet. SKIN: No rash, no masses palpable. NEUROLOGICAL: The patient is sleepy and lethargic unable to arouse no neck rigidity. Results CBC & Chem 7: 06/11/19 06:30 06/11/19 06:30 Labs: Abnormal Lab Results - Last 24 Hours (Table) 06/11/19 06/11/19 06/11/19 Range/Units 06:30 06:30 09:54 RBC 4.16 L (4.30-5.90) m/uL Hgb 11.6 L (13.0-17.5) gm/dL Hct 33.9 L (39.0-53.0) % RDW 16.6 H (11.5-15.5) % Plt Count 132 L (150-450) k/uL Neutrophils # 7.8 H (1.3-7.7) k/uL Lymphocytes # 0.4 L (1.0-4.8) k/uL Sodium 133 L (137-145) mmol/L Carbon Dioxide 21 L (22-30) mmol/L BUN 23 H (9-20) mg/dL Creatinine 1.29 H (0.66-1.25) mg/dL Glucose 155 H (74-99) mg/dL Calcium 12.0 H (8.4-10.2) mg/dL Ionized Calcium Lexi 6.3 H* (4.5-5.3) mg/dL Total Bilirubin 1.6 H (0.2-1.3) mg/dL AST 16 L (17-59) U/L ALT 15 L (21-72) U/L Assessment and Plan Assessment: 1-patient with mental status changes and unresponsiveness possibly metabolic versus neurological such as CVA, clinically doubt infectious etiology in this patient currently with no fever and elevated white count and normal CRP. Plan: 1-patient may benefit from MRI of the brain which is negative an LP may be considered to rule out infectious etiology though clinically doubt encephalitis 2-however the mentioned possible hospice and not to put the patient for any further testing, we will follow the family wishes and not order any further testing 3-no need for any systemic antibiotics or antiviral we will follow on clinical condition and culture to further adjust medication if needed Thank you for this consultation will follow this patient along with you Time with Patient: Greater than 30
[2019-06-12 03:36] VITALS: TEMP 99.5
[2019-06-12] MEDS: SODIUM CHLORIDE 0.45% 1,000 ML IV SCH (04:17)
[2019-06-12] MEDS: PANTOPRAZOLE 40 MG TABLET PO SCH ×2 (05:42→08:07)
[2019-06-12] MEDS: FOLIC ACID 1 MG TAB PO SCH (08:06)
[2019-06-12] MEDS: MAGNESIUM OXIDE 400 MG TAB PO SCH (08:07)
[2019-06-12] MEDS: LABETALOL 5 MG/ML VIAL MDV IVP PRN (08:16)
[2019-06-12 08:22] VITALS: RESP 40
--- NOTE | 2019-06-12 11:21 | P.PN ---
Subjective This is a 74-year-old gentleman who was brought into the ER. At the time examination the patient was completely alert oriented 0. He was only res ponsive to sternal rub just by grimacing but would not open his eyes. Most of the history was taken with the help of his was at bedside. Apparently the patient has been becoming weaker and losing a lot of weight in the last few months. In the last 2 days the says that he's been becoming less and less responsive and not able to arouse at home. She thus called the EMS and by the patient was here for further urology management. The did not complain of any fever or chills that she noticed. He was not having any diarrhea or any constipation. He was not complaining of any shortness of breath or cough. I was not able to determine if he is having any chest pain or no as the patient is not responsive. The patient was just discharged 2 weeks ago to [facility]. He was initially admitted over here for GI bleed and had an EGD done which showed esophageal paresis with no history of cirrhosis and no evidence of splenic vein thrombosis. Apparently according to the she had IVC filter placed and his anti-coagulation was DC'd. He said that when he was discharged he was feeling fine. He had an appointment with Dr. Ambrose but has not seen the doctor yet. ER course-temperature 98.1 pulse 107 blood pressure 1 6491 satting 100% on room air respiration 16.. Labwork done in the ER showed WBC 3.3 hemoglobin 11.3 platelets 83 sodium 139 potassium 4.1 BU and 18 creatinine 0.94 GFR 81 lactic acid was 0.7 calcium was 13.2. Phosphorus was 2.7 bun admission was 1.8. Patient's LFTs are normal. TSH was 0.09. Free T4 was 1.86. CT of the brain was done which showed cerebral atrophy and chronic small vessel ischemia no acute intracranial abnormality and showed sinusitis. Patient was started on IV fluids and admitted to the hospitalist service a further evaluation and management. 06/10/2019 Patient still unresponsive. Chest responding to painful stimuli by grimacing He is breathing on his own. He is able to clear his secretions and is having good cough reflex right now. Rest of the review of system was unobtainable because the patient's condition 06/11/2019 Patient has his eyes open slightly but still not responding he is having rattling breath sounds 06/12/2019 Patient has his eyes open slightly but still not responding He still having raspy breath sounds Objective - Vital Signs Vital signs: Vital Signs Temp 99.5 F 06/12/19 03:35 Pulse 144 H 06/12/19 08:00 Resp 40 H 06/12/19 08:00 BP 176/100 06/12/19 08:00 Pulse Ox 92 L 06/12/19 08:00 Intake & Output 06/11/19 06/12/19 06/12/19 18:59 06:59 18:59 Weight 53.5 kg Other: # Voids 4 1 2 # Bowel Movements 0 - Exam On exam, alert and oriented 0.. HEENT: Conjunctivae normal. eyes normal. NECK: No JVD. No thyroid enlargement. No LNs CARDIOVASCULAR: S1, S2 positive RESPIRATION: Breath sounds diminished in the bases. No rhonchi or crackles. No bronchial breathing. ABDOMEN: Soft, nontender . No guarding. no masses palpable. No ascites, No hepatosplenomegaly.Bowel sounds heard. LEGS: No edema. 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 The cause can be multifactorial. Could be because of hypercalcemia, dehydration. Low probability of infection at this point as the patient's vitals were stable. His lab work also is stable. We will anyways order for blood cultures and a UA to rule that out. We'll also order for pro calcitonin and CRP levels. - Hematology oncology has been consulted for the expert recommendations regarding this - We'll consult neurology for the expert recommendations - DVT and GI prophylaxis - We'll order for lab work in the morning - Expected length of stay more than 2 midnights - The wants the patient to be DO NOT RESUSCITATE limited 06/10/2019 - Discussed in length with the patient's daughter. - Explained to the daughter that his situation is really critical at this stage. He is still not responding. His calcium is slowly coming down but is not back to normal. I explained to her that he could be having a cancer versus multiple myeloma with the diagnosis is not confirmed as of now. The cause for his encephalopathy is not known at this stage it could be multifactorial because of hypercalcemia, because of subclinical seizures, infections although less likely. - He will be started on calcitonin and we will repeat the calcium levels in the evening again and in the morning tomorrow - Case was discussed with neurology who will be seeing the patient shortly. We'll order for an EEG - We will continue current medical care. - Also discussed with the daughter regarding feeding. I gave her the options of NG tube and starting to feedings through that route. Daughter wants the mother to be here before making the decision. 06/11/2019 - Discussed in length with the with the patient's family regarding goals of care I offered them that at this stage of time he is not responding even though his calcium levels are improving. I also expected to them that there are a few causes that could be causing it could be occult malignancy, occult infection although low in probability. Infectious disease already been consulted. We had a lengthy discussion with the family as to which we wish to proceed. He definitely needs a NG tube and needs to be started on tube feeding and he will need to have further workup in the form of imaging and lumbar puncture to diagnose further. The family was given some time to think and discuss and let me know the plan. They later on came up with the conclusion that the patient would not have wanted all of this and they would not want an NG tube and tube feeding through that route and that they would not want any further imaging and further workup. They wanted to pursue hospice and the best of patient's interest. We'll respect the patient's family wishes. [facility] was called and they will be seeing the patient tomorrow 06/12/2019 Discussed with the family today. Distant want to go into the hospice Hospice will be evaluating the patient today He will later be discharged home on hospice once arrangements have been made
[2019-06-12 12:06] VITALS: BMI 17.4
[2019-06-12 14:39] VITALS: BP 128/75; PULSE 125
--- NOTE | 2019-06-12 16:23 | P.DS ---
Providers Date of admission: 06/08/19 19:33 Attending physician: Mauricio Arango MD Consults: 06/08/19 19:34 Consult Physician Urgent Consulting Provider: Chandler Sesay Consult Reason/Comments: hypercalcemia, pancytopenia Do you want consulting provider notified?: Yes 06/09/19 11:32 Consult Physician Routine Consulting Provider: Delmis Poe Consult Reason/Comments: ENCEPHALOPATHY Do you want consulting provider notified?: Yes 06/11/19 13:20 Consult Physician Stat Consulting Provider: Eliezer Santana Consult Reason/Comments: encephalaopthy r/o infection Do you want consulting provider notified?: Yes Primary care physician: [facility] Course: Discharge diagnosis - Acute encephalopathy - Hypercalcemia - Weight loss - History of esophageal paresis of unknown etiology - 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 At the time examination the patient was completely alert oriented 0. He was only responsive to sternal rub just by grimacing but would not open his eyes. Most of the history was taken with the help of his was at bedside. Apparently the patient has been becoming weaker and losing a lot of weight in the last few months. In the last 2 days the says that he's been becoming less and less responsive and not able to arouse at home. She thus called the EMS and by the patient was here for further urology management. The did not complain of any fever or chills that she noticed. He was not having any diarrhea or any constipation. He was not complaining of any shortness of breath or cough. I was not able to determine if he is having any chest pain or no as the patient is not responsive. The patient was just discharged 2 weeks ago to [facility]. He was initially admitted over here for GI bleed and had an EGD done which showed esophageal paresis with no history of cirrhosis and no evidence of splenic vein thrombosis. Apparently according to the she had IVC filter placed and his anti-coagulation was DC'd. He said that when he was discharged he was feeling fine. He had an appointment with Dr. Ambrose but has not seen the doctor yet. ER course-temperature 98.1 pulse 107 blood pressure 1 6491 satting 100% on room air respiration 16.. Labwork done in the ER showed WBC 3.3 hemoglobin 11.3 platelets 83 sodium 139 potassium 4.1 BU and 18 creatinine 0.94 GFR 81 lactic acid was 0.7 calcium was 13.2. Phosphorus was 2.7 bun admission was 1.8. Patient's LFTs are normal. TSH was 0.09. Free T4 was 1.86. CT of the brain was done which showed cerebral atrophy and chronic small vessel ischemia no acute intracranial abnormality and showed sinusitis. Patient was started on IV fluids and admitted to the hospitalist service a further evaluation and management. 06/10/2019 Patient still unresponsive. Chest responding to painful stimuli by grimacing He is breathing on his own. He is able to clear his secretions and is having good cough reflex right now. Rest of the review of system was unobtainable because the patient's condition 06/11/2019 Patient has his eyes open slightly but still not responding he is having rattling breath sounds 06/12/2019 Patient has his eyes open slightly but still not responding He still having raspy breath sounds On 06/12/2019 patient . He was already on hospice care after the family decided to pursue hospice route. Patient Condition at Discharge: Stable Plan - Discharge Summary Discharge Rx Participant: No New Discharge Prescriptions: No Action Memantine [Namenda] 10 mg PO DAILY Atorvastatin [Lipitor] 20 mg PO HS Magnesium Oxide [Mag-Ox] 250 mg PO BID Niacin [Niaspan] 500 mg PO HS Folic Acid 0.5 mg PO DAILY Megestrol Acetate [Megace] 120 mg PO DAILY Pantoprazole Sodium [Protonix] 40 mg PO BID LORazepam [Ativan] 0.5 mg PO BID PRN PRN Reason: Anxiety Discharge Medication List Atorvastatin [Lipitor] 20 mg PO HS 03/26/19 [History] Folic Acid 0.5 mg PO DAILY 03/26/19 [History] Magnesium Oxide [Mag-Ox] 250 mg PO BID 03/26/19 [History] Memantine [Namenda] 10 mg PO DAILY 03/26/19 [History] Niacin [Niaspan] 500 mg PO HS 03/26/19 [History] Megestrol Acetate [Megace] 120 mg PO DAILY 05/28/19 [History] Pantoprazole Sodium [Protonix] 40 mg PO BID 05/28/19 [History] LORazepam [Ativan] 0.5 mg PO BID PRN 06/08/19 [History] Follow up Appointment(s)/Referral(s): Yordy Vaz DO [Primary Care Provider] - 1-2 days
--- NOTE | 2019-06-15 10:06 | CDI ---
Documentation Clarification Form Date: 06/15/19 From: Lamar Win Phone: If questions call Jeannette Dillard @ [phone], Hours-8:30 am & 5 pm Huey Felix Admit Date: 06/08/2019 7:33:00 PM Patient Name: Jewel Price Visit Number: [id number] Discharge Date: 06/12/2019 6:29:00 PM ATTENTION: The Clinical Documentation Specialists (CDI) and [employer] Coding Staff appreciate your assistance in clarifying documentation. Please respond to the clarification below the line at the bottom and electronically sign. The CDI & [employer] Coding staff will review the response and follow-up if needed. Please note: Queries are made part of the Legal Health Record. If you have any questions, please contact the author of this message via ITS. Dr. Mauricio Arango Can you please dictate the /Discharge Summary and include the likely/preliminary cause of ? Thank you for your assistance. MTDD
--- NOTE | 2019-06-23 08:56 | CDI ---
Documentation Clarification Form Date: 06/23/2019 8:30:27 AM From: Jihan Adler RN, CCDS Email: [email or web address] Admit Date: 06/08/2019 7:33:00 PM Patient Name: Jewel Price Visit Number: [id number] Discharge Date: 06/12/2019 6:29:00 PM ATTENTION: The Clinical Documentation Specialists (CDI) and [facility] Coding Staff appreciate your assistance in clarifying documentation. Please respond to the clarification below the line at the bottom and electronically sign. The CDI & [facility] Coding staff will review the response and follow-up if needed. Please note: Queries are made part of the Legal Health Record. If you have any questions, please contact the author of this message via ITS. Dr. Mauricio Arango Cachexia is documented in the progress notes. 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 Mild Protein-Calorie Malnutrition Moderate Protein-Calorie Malnutrition Severe Protein-Calorie Malnutrition Other condition, please specify Unable to determine Moderate Protein-Calorie Malnutrition MTDD
== END 2019-06-12 18:29 | disposition expired | DRG 70 ==
LOC: EC 15:48 → 3SCARD 19:33
PROVIDERS: ADMIT Internal Medicine; ATTEND Internal Medicine
DX: G93.40 Encephalopathy, unspecified (principal); I26.99 Other pulmonary embolism without acute cor pulmonale; R64 Cachexia; D61.818 Other pancytopenia; E89.6 Postprocedural adrenocortical (-medullary) hypofunction; D69.3 Immune thrombocytopenic purpura; F03.91 Unspecified dementia, unspecified severity, with behavioral disturbance; E44.0 Moderate protein-calorie malnutrition; Z66 Do not resuscitate; Z51.5 Encounter for palliative care; E83.52 Hypercalcemia; E11.9 Type 2 diabetes mellitus without complications; J32.9 Chronic sinusitis, unspecified; R15.9 Full incontinence of feces; E86.0 Dehydration; E78.5 Hyperlipidemia, unspecified; I10 Essential (primary) hypertension; I86.4 Gastric varices; K22.8 Other specified diseases of esophagus; K21.9 Gastro-esophageal reflux disease without esophagitis; K64.9 Unspecified hemorrhoids; R32 Unspecified urinary incontinence; M19.90 Unspecified osteoarthritis, unspecified site; H91.90 Unspecified hearing loss, unspecified ear; H40.9 Unspecified glaucoma; F41.9 Anxiety disorder, unspecified; F32.9 Major depressive disorder, single episode, unspecified; Z79.818 Long term (current) use of other agents affecting estrogen receptors and estrogen levels; Z79.899 Other long term (current) drug therapy; Z95.828 Presence of other vascular implants and grafts; Z87.19 Personal history of other diseases of the digestive system; Z98.890 Other specified postprocedural states; Z86.711 Personal history of pulmonary embolism; Z86.718 Personal history of other venous thrombosis and embolism; Z87.891 Personal history of nicotine dependence; Z81.8 Family history of other mental and behavioral disorders
CPT/HCPCS: 36415; 70450; 71045; 71046; 80048; 80053; 81001; 82140; 82310; 82330; 82550; 83605; 83735; 83880; 83883; 84100; 84145; 84165; 84439; 84443; 84484; 85025; 85610; 85730; 86140; 86334; 87040; 93005; 95819; 96360; 96361; 96374; 99285